=== PATIENT | male | born 1960 | race African-American/Black ===

== ENCOUNTER 2016-12-25 12:57 | Emergency (ER) | payer MEDICAID ==
[~2016-12-25] VITALS: Ht 167.6 cm; Wt 82.0 kg
[~2016-12-25 12:57] MED LIST: AMLO5TAB88 PO; ASCO500T20 PO; ATOR80TA PO; Aspirin PO; BACL-141 PO; CHOL400T28 PO; CITA20TA19 PO; CLOP75TA2 PO; FLEXERIL PO; HY1 PO; HYDR-519 PO; Isosorbide Mononitrate PO; KEPP500 PO; LATA2.5D2 OP; LISI10TA5 PO; MELO-58 PO; METO200T34 PO; Ranolazine PO; TIOT18CA3 INH; TRAZ-132 PO
[2016-12-25] MEDS ORDERED: ALBUTEROL (0.083%) 2.5MG/3ML NEB HHN STA (14:08)
[2016-12-25] MEDS ORDERED: PREDNISONE 20MG TABLET PO STA (14:08)
[2016-12-25] MEDS ORDERED: IPRATROPIUM BROMIDE (0.02%) 0.5MG/2.5ML NEB HHN STA (14:08)
[2016-12-25] MEDS ORDERED: MORPHINE SULFATE 4 MG/ML CPJ (NOT FOR IM USE) IV ONE (14:15)
[2016-12-25 14:48] LABS: *AMPHETAMINES SCREEN URINE NEGATIVE (NEGATIVE); *BARBITURATES SCREEN URINE NEGATIVE (NEGATIVE); *BENZODIAZEPINES SCREEN URINE NEGATIVE (NEGATIVE); *COCAINE SCREEN URINE NEGATIVE (NEGATIVE); CANNABINOID URINE SCREEN NEGATIVE (NEGATIVE); ECSTASY MDMA SCREEN URINE CONF.TEST INDICATED (NEGATIVE); METHADONE URINE SCREEN NEGATIVE (NEGATIVE); OPIATES URINE SCREEN PRESUMTIVE POSITIVE (NEGATIVE); PHENCYCLIDINE URINE SCREEN NEGATIVE (NEGATIVE)
[2016-12-25 15:26] LABS: BASOPHILS % 0.5 % (0.0-2.0); EOSINOPHILS % 0.1 % (0.0-5.0); HEMATOCRIT. 42.5 % (42.0-52.0); LYMPHOCYTES % 50.4 % (20.0-50.0); MEAN CORPUSCULAR HGB CONC 32.9 g/dL (31.0-37.0); MEAN CORPUSCULAR VOLUME 91.1 fL (80.0-94.0); MEAN PLATELET VOLUME 8.5 fl (7.4-10.4); MONOCYTES % 11.5 % (2.0-8.0); NEUTROPHILS % 37.5 % (40.0-76.0); PLATELET 171 x1000/uL (130-400); RED BLOOD CELL COUNT 4.67 mill/uL (4.7-6.1); RED CELL DISTRIBUTION WIDTH 15.4 % (11.6-14.6); WHITE BLOOD COUNT 2.8 x1000/uL (4.5-11.0)
[2016-12-25 15:28] LABS: CHLORIDE 105 mEq/L (98-107); INDEX HEMOLYSI 1 (1-3); INDEX ICTERIC 1 (1-4); INDEX LIPEMIC 1 (1-3)
[2016-12-25 15:30] LABS: INR 1.1; PARTIAL THROMBOPLASTIN TIME 29.6 sec (24.0-34.0); PROTHROMBIN TIME 11.4 sec
[2016-12-25 15:39] LABS: ALANINE AMINOTRANSFERASE 57 IU/L (13-61); ALBUMIN 3.8 g/dL (3.4-5.0); ANION GAP 12; CALCIUM 8.5 mg/dL (8.5-10.1); CARBON DIOXIDE 29 mEq/L (21-32); ETHANOL BLOOD < 10 mg/dL; NT PRO B-TYPE NATRIURETIC PEP 391 pg/mL (5-125); TROPONIN I < 0.02 ng/mL (0.00-0.04); UREA NITROGEN BLOOD 6 mg/dL (7-21); eGFR > 60 mL/min (>60)
[2016-12-25] MEDS ORDERED: ALBUTEROL (0.083%) 2.5MG/3ML NEB HHN ONE (16:15)
[2016-12-25] MEDS ORDERED: IBUPROFEN 800MG TABLET PO ONE (17:00)
[2016-12-25 17:10] VITALS: BP 176/99
== END 2016-12-25 17:18 | disposition home or self-care (01) ==
LOC: ER 12:57
DX: J40 Bronchitis, not specified as acute or chronic (principal); J44.9 Chronic obstructive pulmonary disease, unspecified; I25.10 Atherosclerotic heart disease of native coronary artery without angina pectoris; E78.00 Pure hypercholesterolemia, unspecified; F17.200 Nicotine dependence, unspecified, uncomplicated; I10 Essential (primary) hypertension; Z86.73 Personal history of transient ischemic attack (TIA), and cerebral infarction without residual deficits; Z95.5 Presence of coronary angioplasty implant and graft; Z79.82 Long term (current) use of aspirin; Z79.899 Other long term (current) drug therapy
CPT/HCPCS: 36415; 71010; 80053; 80305; 83605; 83880; 84484; 85025; 85610; 85730; 87040; 93005; 96374; 99285; 99406; G0482; J2270; J7512; J7611; Z7610

== ENCOUNTER 2017-01-31 13:55 | Observation (INO) | payer MEDICAID ==
[~2017-01-31] VITALS: Ht 170.2 cm; Wt 80.9 kg
[2017-01-31 16:40] LABS: BASOPHILS % 0.3 % (0.0-2.0); EOSINOPHILS % 0.2 % (0.0-5.0); HEMATOCRIT. 40.2 % (42.0-52.0); HEMOGLOBIN. 13.4 g/dL (14.0-18.0); LYMPHOCYTES % 41.8 % (20.0-50.0); MEAN CORPUSCULAR HEMOGLOBIN 29.3 pg (28.0-32.0); MEAN CORPUSCULAR HGB CONC 33.3 g/dL (31.0-37.0); MEAN PLATELET VOLUME 7.9 fl (7.4-10.4); MONOCYTES % 13.7 % (2.0-8.0); PLATELET 205 x1000/uL (130-400); RED BLOOD CELL COUNT 4.57 mill/uL (4.7-6.1); RED CELL DISTRIBUTION WIDTH 15.9 % (11.6-14.6); WHITE BLOOD COUNT 3.3 x1000/uL (4.5-11.0)
[2017-01-31 16:47] LABS: INR 1.1; PROTHROMBIN TIME 10.9 sec
[2017-01-31 16:59] LABS: ANION GAP 12; CALCIUM 8.5 mg/dL (8.5-10.1); CARBON DIOXIDE 27 mEq/L (21-32); CHLORIDE 106 mEq/L (98-107); INDEX HEMOLYSI 1 (1-3); INDEX ICTERIC 1 (1-4); INDEX LIPEMIC 1 (1-3); NT PRO B-TYPE NATRIURETIC PEP 549 pg/mL (5-125); UREA NITROGEN BLOOD 7 mg/dL (7-21)
[2017-01-31 17:00] LABS: eGFR > 60 mL/min (>60)
[2017-01-31] MEDS ORDERED: HYDROCODONE/ACETAMINOPHEN 5/325MG TABLET PO ONE (17:15)
[2017-01-31] MEDS ORDERED: ASPIRIN 81MG TABLET PO ONE (17:15)
[2017-01-31 17:16] LABS: *AMPHETAMINES SCREEN URINE NEGATIVE (NEGATIVE); *BARBITURATES SCREEN URINE NEGATIVE (NEGATIVE); *BENZODIAZEPINES SCREEN URINE NEGATIVE (NEGATIVE); *COCAINE SCREEN URINE NEGATIVE (NEGATIVE); CANNABINOID URINE SCREEN NEGATIVE (NEGATIVE); ECSTASY MDMA SCREEN URINE CONF.TEST INDICATED (NEGATIVE); METHADONE URINE SCREEN NEGATIVE (NEGATIVE); OPIATES URINE SCREEN NEGATIVE (NEGATIVE); PHENCYCLIDINE URINE SCREEN NEGATIVE (NEGATIVE)
[2017-01-31] MEDS ORDERED: LABETALOL HCL 20MG/4ML CARPUJECT IV PRN ×2 (18:00→20:45)
[2017-01-31] MEDS ORDERED: LABETALOL 5MG/ML SYR 20 MG/4 ML SYRINGE IV PRN ×2 (18:46→21:00)
[2017-01-31] MEDS ORDERED: KETOROLAC 30MG/ML VIAL IV ONE (20:30)
[2017-01-31] MEDS ORDERED: ASPI-1035 PO (22:40)
[2017-01-31] MEDS ORDERED: RANO500T3 PO (22:40)
[2017-01-31] MEDS ORDERED: ISOS60TA4 PO (22:40)
[2017-01-31] MEDS ORDERED: AMLO10TA80 PO (22:43)
[2017-01-31] MEDS ORDERED: GABA-290 PO (22:52)
[2017-01-31] MEDS ORDERED: LISI40TA4 PO (22:52)
[2017-01-31] MEDS ORDERED: DICL75TA5 PO (22:52)
[2017-01-31] MEDS ORDERED: PREG50CA PO (22:52)
[2017-01-31] MEDS ORDERED: TIOT18CA3 INH (22:52)
[2017-01-31] MEDS ORDERED: MIRT15TA6 PO (22:52)
[2017-01-31] MEDS ORDERED: PROT20 PO (22:52)
[2017-01-31 23:00] VITALS: BP 153/111
[2017-01-31] MEDS ORDERED: BRIN8DRO LEFTEYE (23:40)
[2017-01-31] MEDS ORDERED: DORZ10DR7 LEFTEYE (23:40)
[2017-02-01] VITALS: BP 163/95
[2017-02-01] MEDS ORDERED: POTASSIUM CHLORIDE 20MEQ TABLET SR PO ONE (00:30)
[2017-02-01] MEDS: HYDROCODONE/ACETAMINOPHEN 10/325MG TABLET PO PRN ×3 (00:33→15:19)
[2017-02-01] MEDS ORDERED: IPRATROPIUM/ALBUTEROL 0.5-3(2.5)MG/3ML NEB HHN PRN (01:30)
[2017-02-01 04:00] VITALS: BP 144/79
[2017-02-01 05:43] LABS: HEMATOCRIT. 39.1 % (42.0-52.0); MEAN CORPUSCULAR HEMOGLOBIN 29.5 pg (28.0-32.0); MEAN CORPUSCULAR HGB CONC 33.4 g/dL (31.0-37.0); MEAN CORPUSCULAR VOLUME 88.3 fL (80.0-94.0); MEAN PLATELET VOLUME 8.6 fl (7.4-10.4); PLATELET 209 x1000/uL (130-400); RED BLOOD CELL COUNT 4.43 mill/uL (4.7-6.1); RED CELL DISTRIBUTION WIDTH 15.9 % (11.6-14.6); WHITE BLOOD COUNT 2.9 x1000/uL (4.5-11.0)
[2017-02-01 06:42] LABS: DIFFERENTIAL COMMENT 1
[2017-02-01] MEDS ORDERED: PANTOPRAZOLE 40MG DR TABLET PO SCH (06:45)
[2017-02-01 06:51] LABS: CHLORIDE 106 mEq/L (98-107); INDEX HEMOLYSI 1 (1-3); INDEX ICTERIC 1 (1-4); INDEX LIPEMIC 1 (1-3)
[2017-02-01 07:04] LABS: ALANINE AMINOTRANSFERASE 54 IU/L (13-61); ALBUMIN 3.2 g/dL (3.4-5.0); ANION GAP 13; CALCIUM 8.2 mg/dL (8.5-10.1); CARBON DIOXIDE 26 mEq/L (21-32); CREATINE KINASE 82 IU/L (39-308); CREATINE KINASE MB FRACTION 0.8 ng/mL (0.5-3.6); HDL CHOLESTEROL 59 mg/dL (40-59); LDL CHOLESTEROL 74 mg/dL (5-100); TRIGLYCERIDE 151 mg/dL (0-150); TROPONIN I 0.06 ng/mL (0.00-0.04); UREA NITROGEN BLOOD 8 mg/dL (7-21); eGFR > 60 mL/min (>60)
[2017-02-01 08:00] VITALS: BP 157/94
[2017-02-01] MEDS: IPRATROPIUM/ALBUTEROL 0.5-3(2.5)MG/3ML NEB HHN SCH ×2 (08:15→13:01)
[2017-02-01] MEDS ORDERED: CITALOPRAM HYDROBROMIDE 20MG TABLET PO SCH (09:00)
[2017-02-01] MEDS ORDERED: LISINOPRIL 40MG TABLET PO SCH (09:00)
[2017-02-01] MEDS ORDERED: RANOLAZINE 500 MG TAB.SR.12H PO SCH (09:00)
[2017-02-01] MEDS ORDERED: ISOSORBIDE MONONITRATE 30MG TABLET SR 24HR PO SCH (09:00)
[2017-02-01] MEDS ORDERED: CHOLECALCIFEROL (VIT D3) 400 UNIT TABLET PO SCH (09:00)
[2017-02-01] MEDS ORDERED: ASPIRIN 81MG EC TABLET PO SCH (09:00)
[2017-02-01] MEDS ORDERED: ASCORBIC ACID 500 MG TABLET PO SCH (09:00)
[2017-02-01] MEDS ORDERED: AMLODIPINE 10MG TABLET PO SCH (09:00)
[2017-02-01] MEDS ORDERED: ENOXAPARIN 40MG/0.4ML SYR SUBCUT SCH (09:00)
[2017-02-01] MEDS ORDERED: CLOPIDOGREL 75MG TABLET PO SCH (09:00)
[2017-02-01] MEDS: BACLOFEN 10MG TABLET PO SCH ×3 (09:37→17:48)
[2017-02-01] MEDS: GABAPENTIN 300MG CAPSULE PO SCH ×3 (09:44→17:47)
[2017-02-01 12:00] VITALS: BP 123/78
[2017-02-01 12:23] LABS: ANISOCYTOSIS 1+; PLATELET ESTIMATE NORMAL
[2017-02-01] MEDS ORDERED: NITROGLYCERIN OINT 1GM/INCH UDPKT TD SCH (14:00)
[2017-02-01 15:13] LABS: CREATINE KINASE MB FRACTION 0.6 ng/mL (0.5-3.6); TROPONIN I 0.06 ng/mL (0.00-0.04)
[2017-02-01 16:00] VITALS: BP 120/78
[2017-02-01] MEDS ORDERED: MIRTAZAPINE 15MG TABLET PO SCH (17:00)
[2017-02-01] MEDS ORDERED: POTASSIUM CHLORIDE 20MEQ TABLET SR PO NR (17:00)
[2017-02-01 17:55] VITALS: BP 122/78
[2017-02-01] MEDS ORDERED: TERAZOSIN HCL 1MG CAPSULE PO SCH (21:00)
[2017-02-01] MEDS ORDERED: LATANOPROST 0.005% OPHTH DROPS 2.5ML LEFTEYE SCH (21:00)
[2017-02-01] MEDS ORDERED: ATORVASTATIN CALCIUM 40MG TABLET PO SCH (21:00)
== END 2017-02-01 18:36 | disposition home or self-care (01) ==
LOC: ER 14:13 → 5WST 19:03 → INTOOBSV 19:03
PROVIDERS: ADMIT Internal Medicine; ATTEND Internal Medicine
DX: I24.9 Acute ischemic heart disease, unspecified (principal); I25.10 Atherosclerotic heart disease of native coronary artery without angina pectoris; I11.9 Hypertensive heart disease without heart failure; F32.9 Major depressive disorder, single episode, unspecified; J44.9 Chronic obstructive pulmonary disease, unspecified; M54.9 Dorsalgia, unspecified; G89.29 Other chronic pain; I25.2 Old myocardial infarction; E78.00 Pure hypercholesterolemia, unspecified; F17.210 Nicotine dependence, cigarettes, uncomplicated; Z86.19 Personal history of other infectious and parasitic diseases; Z86.73 Personal history of transient ischemic attack (TIA), and cerebral infarction without residual deficits
CPT/HCPCS: 36415; 70450; 71010; 80048; 80053; 80061; 80305; 82550; 82553; 83880; 84484; 85025; 85610; 93005; 93306; 94640; 96372; 96374; 96375; 96376; 99285; G0378; J1650; J1885; J3490; J7620

== ENCOUNTER 2017-04-16 07:24 | Emergency (ER) | payer MEDICAID, MEDICARE ==
[~2017-04-16] VITALS: Ht 170.2 cm; Wt 82.0 kg
[~2017-04-16 07:24] MED LIST changes: +ASPI-1159 PO; -Aspirin PO; +BRIN8DRO LEFTEYE; +CLOP75TA15 PO; -CLOP75TA2 PO; +DICL75TA5 PO; +DORZ10DR7 LEFTEYE; +GABA-290 PO; +ISOS60TA4 PO; -Isosorbide Mononitrate PO; -LISI10TA5 PO; +LISI40TA4 PO; +MIRT15TA6 PO; +PREG50CA PO; +PROT20 PO; +RANO500T3 PO; -Ranolazine PO
[2017-04-16] MEDS ORDERED: ONDANSETRON HCL 4MG/2ML VIAL IV ONE (08:15)
[2017-04-16] MEDS ORDERED: FAMOTIDINE 20MG/2ML VIAL IV ONE (08:15)
[2017-04-16] MEDS ORDERED: MORPHINE SULFATE 4 MG/ML CPJ (NOT FOR IM USE) IV ONE (08:15)
[2017-04-16 08:40] LABS: BASOPHILS % 0.3 % (0.0-2.0); EOSINOPHILS % 0.6 % (0.0-5.0); HEMATOCRIT. 41.7 % (42.0-52.0); LYMPHOCYTES % 27.4 % (20.0-50.0); MEAN CORPUSCULAR HEMOGLOBIN 30.1 pg (28.0-32.0); MEAN CORPUSCULAR VOLUME 89.4 fL (80.0-94.0); MEAN PLATELET VOLUME 8.1 fl (7.4-10.4); MONOCYTES % 13.2 % (2.0-8.0); NEUTROPHILS % 58.5 % (40.0-76.0); PLATELET 174 x1000/uL (130-400); RED BLOOD CELL COUNT 4.66 mill/uL (4.7-6.1); RED CELL DISTRIBUTION WIDTH 16.9 % (11.6-14.6)
[2017-04-16 08:47] LABS: INR 1.1; PROTHROMBIN TIME 10.9 sec
[2017-04-16 08:58] LABS: *AMPHETAMINES SCREEN URINE NEGATIVE (NEGATIVE); *BARBITURATES SCREEN URINE NEGATIVE (NEGATIVE); *BENZODIAZEPINES SCREEN URINE NEGATIVE (NEGATIVE); *COCAINE SCREEN URINE NEGATIVE (NEGATIVE); CANNABINOID URINE SCREEN NEGATIVE (NEGATIVE); METHADONE URINE SCREEN NEGATIVE (NEGATIVE); OPIATES URINE SCREEN NEGATIVE (NEGATIVE); PHENCYCLIDINE URINE SCREEN NEGATIVE (NEGATIVE)
[2017-04-16 08:59] LABS: CARBON DIOXIDE 29 mEq/L (21-32); CHLORIDE 104 mEq/L (98-107); ETHANOL BLOOD < 10 mg/dL; TROPONIN I < 0.02 ng/mL (0.00-0.04)
[2017-04-16 10:19] VITALS: BP 142/96
[2017-04-16] MEDS ORDERED: SODIUM CHLORIDE 0.9% 10ML VIAL ONE (14:07)
[2017-04-16] MEDS ORDERED: IOHEXOL-300 100 ML BOTTLE ONE (14:07)
== END 2017-04-16 10:34 | disposition home or self-care (01) ==
LOC: ER 07:24
DX: R10.13 Epigastric pain (principal); R20.0 Anesthesia of skin; R11.0 Nausea; F17.200 Nicotine dependence, unspecified, uncomplicated; I10 Essential (primary) hypertension; Z86.73 Personal history of transient ischemic attack (TIA), and cerebral infarction without residual deficits; Z79.82 Long term (current) use of aspirin
CPT/HCPCS: 36415; 70450; 74177; 80053; 80305; 83690; 83880; 84484; 85025; 85610; 93005; 96374; 96375; 99285; A4216; G0482; J2270; J2405; J3490; Q9967; Z7610

== ENCOUNTER 2017-04-19 07:18 | Emergency (ER) | payer MEDICARE ==
[~2017-04-19] VITALS: Ht 167.6 cm; Wt 82.0 kg
[2017-04-19] MEDS ORDERED: SODIUM CHLORIDE 0.9% 500 ML IV ONE (08:38)
[2017-04-19] MEDS ORDERED: FAMOTIDINE 20MG/2ML VIAL IV STA (08:38)
[2017-04-19] MEDS ORDERED: MAGNESIUM/ALUMINUM HYDROXIDE/SIMETHICONE 30ML UDC PO STA (08:38)
[2017-04-19 09:12] LABS: HEMOGLOBIN. 13.2 g/dL (14.0-18.0); MEAN CORPUSCULAR HEMOGLOBIN 30.3 pg (28.0-32.0); MEAN CORPUSCULAR VOLUME 89.7 fL (80.0-94.0); MEAN PLATELET VOLUME 8.1 fl (7.4-10.4); PLATELET 168 x1000/uL (130-400); RED BLOOD CELL COUNT 4.35 mill/uL (4.7-6.1); RED CELL DISTRIBUTION WIDTH 16.7 % (11.6-14.6)
[2017-04-19 09:23] LABS: CARBON DIOXIDE 29 mEq/L (21-32); CHLORIDE 107 mEq/L (98-107); PARTIAL THROMBOPLASTIN TIME 28.8 sec (24.0-34.0); PROTHROMBIN TIME 10.5 sec
[2017-04-19 09:30] LABS: TROPONIN I < 0.02 ng/mL (0.00-0.04)
[2017-04-19] MEDS ORDERED: MORPHINE SULFATE 4 MG/ML CPJ (NOT FOR IM USE) IV ONE (10:00)
[2017-04-19] MEDS ORDERED: ONDANSETRON HCL 4MG/2ML VIAL IV ONE (10:00)
[2017-04-19] MEDS ORDERED: POTASSIUM CHLORIDE 20MEQ TABLET SR PO ONE (11:00)
[2017-04-19 11:35] LABS: PLATELET ESTIMATE NORMAL
[2017-04-19 14:41] VITALS: BP 157/98
== END 2017-04-19 14:54 | disposition short-term general hospital (02) ==
LOC: ER 08:14 → EDBEDREQ 09:41 → CANRESERV 13:49 → ENRESERV 13:49 → ER 14:54 → CANBEDREQ 17:01
DX: R10.9 Unspecified abdominal pain (principal); C95.90 Leukemia, unspecified not having achieved remission; E87.8 Other disorders of electrolyte and fluid balance, not elsewhere classified; I10 Essential (primary) hypertension; D64.9 Anemia, unspecified; F17.210 Nicotine dependence, cigarettes, uncomplicated; Z79.82 Long term (current) use of aspirin; Z86.73 Personal history of transient ischemic attack (TIA), and cerebral infarction without residual deficits
CPT/HCPCS: 36415; 71010; 80053; 83690; 84484; 85025; 85610; 85730; 93005; 96361; 96374; 96375; 99285; J2270; J2405; J3490; J7030; J7040; Z7610

== ENCOUNTER 2017-04-28 11:58 | Inpatient (IN) | payer MEDICARE ==
[~2017-04-28] VITALS: Ht 170.2 cm; Wt 83.0 kg
[2017-04-28 13:18] LABS: BASOPHILS % 0.4 % (0.0-2.0); EOSINOPHILS % 0.3 % (0.0-5.0); HEMATOCRIT. 40.9 % (42.0-52.0); HEMOGLOBIN. 13.9 g/dL (14.0-18.0); LYMPHOCYTES % 41.1 % (20.0-50.0); MEAN CORPUSCULAR HEMOGLOBIN 30.4 pg (28.0-32.0); MEAN CORPUSCULAR VOLUME 89.6 fL (80.0-94.0); MEAN PLATELET VOLUME 7.9 fl (7.4-10.4); MONOCYTES % 14.8 % (2.0-8.0); NEUTROPHILS % 43.4 % (40.0-76.0); PLATELET 188 x1000/uL (130-400); RED BLOOD CELL COUNT 4.56 mill/uL (4.7-6.1)
[2017-04-28 13:26] LABS: PROTHROMBIN TIME 10.6 sec
[2017-04-28 13:32] LABS: CARBON DIOXIDE 28 mEq/L (21-32); CHLORIDE 107 mEq/L (98-107)
[2017-04-28 13:34] LABS: TROPONIN I < 0.02 ng/mL (0.00-0.04)
[2017-04-28] MEDS ORDERED: METOCLOPRAMIDE HCL 10MG/2ML VIAL IV ONE (13:45)
[2017-04-28] MEDS ORDERED: KETOROLAC 30MG/ML VIAL IV ONE (13:45)
[2017-04-28 16:00] VITALS: BP 147/98
[2017-04-28 18:49] VITALS: BP 147/98
[2017-04-28 20:00] VITALS: BP 144/91
== END 2017-04-28 23:20 | disposition short-term general hospital (02) | DRG 140 ==
LOC: ER 13:06 → 5WST 14:12 → EDBEDREQ 16:55 → ENRESERV 17:27
PROVIDERS: ADMIT Internal Medicine; ATTEND Internal Medicine
DX: J44.1 Chronic obstructive pulmonary disease with (acute) exacerbation (principal); G90.8 Other disorders of autonomic nervous system; I10 Essential (primary) hypertension; F17.210 Nicotine dependence, cigarettes, uncomplicated; E78.00 Pure hypercholesterolemia, unspecified; I25.10 Atherosclerotic heart disease of native coronary artery without angina pectoris; Z79.82 Long term (current) use of aspirin; Z79.899 Other long term (current) drug therapy; Z95.5 Presence of coronary angioplasty implant and graft; Z79.02 Long term (current) use of antithrombotics/antiplatelets; Z82.49 Family history of ischemic heart disease and other diseases of the circulatory system
CPT/HCPCS: 36415; 70450; 71010; 80053; 83880; 84484; 85025; 85610; 93005; 96374; 96375; 99285; J1885; J2765

== ENCOUNTER 2017-05-08 09:33 | Observation (INO) | payer MEDICARE ==
[~2017-05-08] VITALS: Ht 170.2 cm; Wt 80.7 kg
[2017-05-08] MEDS ORDERED: KETOROLAC 30MG/ML VIAL IV STA (10:15)
[2017-05-08 10:53] LABS: BASOPHILS % 0.5 % (0.0-2.0); EOSINOPHILS % 0.5 % (0.0-5.0); HEMATOCRIT. 43.1 % (42.0-52.0); HEMOGLOBIN. 14.6 g/dL (14.0-18.0); MEAN CORPUSCULAR HEMOGLOBIN 30.2 pg (28.0-32.0); MEAN CORPUSCULAR VOLUME 89.2 fL (80.0-94.0); MEAN PLATELET VOLUME 8.7 fl (7.4-10.4); MONOCYTES % 8.3 % (2.0-8.0); NEUTROPHILS % 48.7 % (40.0-76.0); PLATELET 174 x1000/uL (130-400); RED BLOOD CELL COUNT 4.84 mill/uL (4.7-6.1); RED CELL DISTRIBUTION WIDTH 16.4 % (11.6-14.6)
[2017-05-08 11:04] LABS: CARBON DIOXIDE 27 mEq/L (21-32); CHLORIDE 102 mEq/L (98-107)
[2017-05-08 11:14] LABS: INR 1.1; PROTHROMBIN TIME 11.2 sec
[2017-05-08 11:38] LABS: CLARITY URINE CLEAR (CLEAR); COLOR URINE YELLOW (YELLOW); GLUCOSE URINE TRACE (NEGATIVE); KETONES URINE NEGATIVE (NEGATIVE); LEUKOCYTE ESTERASE URINE NEGATIVE (NEGATIVE); NITRITE URINE NEGATIVE (NEGATIVE); OCCULT BLOOD URINE NEGATIVE (NEGATIVE); PH URINE 6.5 (4.5-8.0); PROTEIN URINE NEGATIVE (NEGATIVE); SPECIFIC GRAVITY URINE 1.008 (1.005-1.030); UROBILINOGEN URINE 0.2 E.U./dL (0.2-1.0)
[2017-05-08 12:06] LABS: *AMPHETAMINES SCREEN URINE NEGATIVE (NEGATIVE); *BARBITURATES SCREEN URINE NEGATIVE (NEGATIVE); *BENZODIAZEPINES SCREEN URINE NEGATIVE (NEGATIVE); *COCAINE SCREEN URINE NEGATIVE (NEGATIVE); CANNABINOID URINE SCREEN NEGATIVE (NEGATIVE); METHADONE URINE SCREEN NEGATIVE (NEGATIVE); OPIATES URINE SCREEN NEGATIVE (NEGATIVE); PHENCYCLIDINE URINE SCREEN NEGATIVE (NEGATIVE)
[2017-05-08] MEDS ORDERED: ONDANSETRON HCL 4MG/2ML VIAL IV PRN (14:00)
[2017-05-08] MEDS ORDERED: DIPHENHYDRAMINE 50MG/ML VIAL IV PRN (14:00)
[2017-05-08] MEDS ORDERED: ACETAMINOPHEN 325MG TABLET PO PRN (14:00)
[2017-05-08] MEDS ORDERED: POTASSIUM CHLORIDE 20MEQ TABLET SR PO ONE (14:30)
[2017-05-08] MEDS ORDERED: ASPIRIN 81MG TABLET PO ONE (15:45)
[2017-05-08] MEDS: AMLODIPINE 10MG TABLET PO SCH (16:36)
[2017-05-08 18:00] VITALS: BP 149/91
[2017-05-08] MEDS: HYDROCODONE/ACETAMINOPHEN 5/325MG TABLET PO PRN (18:46)
[2017-05-08 20:00] VITALS: BP 132/96
[2017-05-08] MEDS ORDERED: ZOLPIDEM TARTRATE 5MG TABLET PO PRN (22:45)
[2017-05-09] VITALS: BP 151/87
[2017-05-09] MEDS: HYDROCODONE/ACETAMINOPHEN 5/325MG TABLET PO PRN (03:07)
[2017-05-09] MEDS ORDERED: RANOLAZINE 500 MG TAB.SR.12H PO SCH (03:45)
[2017-05-09 04:00] VITALS: BP 118/75
[2017-05-09 04:36] VITALS: BP 118/75
[2017-05-09 06:54] LABS: BASOPHILS % 0.4 % (0.0-2.0); HEMATOCRIT. 41.1 % (42.0-52.0); LYMPHOCYTES % 48.4 % (20.0-50.0); MEAN CORPUSCULAR HEMOGLOBIN 30.5 pg (28.0-32.0); MEAN CORPUSCULAR VOLUME 89.3 fL (80.0-94.0); MEAN PLATELET VOLUME 8.3 fl (7.4-10.4); MONOCYTES % 14.1 % (2.0-8.0); NEUTROPHILS % 36.1 % (40.0-76.0); PLATELET 172 x1000/uL (130-400); RED CELL DISTRIBUTION WIDTH 16.4 % (11.6-14.6)
[2017-05-09 07:31] LABS: CHLORIDE 107 mEq/L (98-107)
[2017-05-09 07:45] LABS: CARBON DIOXIDE 26 mEq/L (21-32); HDL CHOLESTEROL 46 mg/dL (40-59); LDL CHOLESTEROL 65 mg/dL (5-100)
[2017-05-09 08:00] VITALS: BP 136/83
[2017-05-09] MEDS: AMLODIPINE 10MG TABLET PO SCH (08:39)
[2017-05-09] MEDS ORDERED: LISINOPRIL 40MG TABLET PO SCH (09:00)
[2017-05-09] MEDS ORDERED: ASCORBIC ACID 500 MG TABLET PO SCH (09:00)
[2017-05-09] MEDS ORDERED: CLOPIDOGREL 75MG TABLET PO SCH (09:00)
[2017-05-09] MEDS ORDERED: LEVETIRACETAM 500MG TABLET PO SCH (09:00)
[2017-05-09] MEDS ORDERED: AMLODIPINE 5MG TABLET PO SCH (09:00)
[2017-05-09] MEDS ORDERED: ASPIRIN 81MG EC TABLET PO SCH ×2 (09:00)
[2017-05-09] MEDS ORDERED: DORZOLAMIDE 2% OPHTH 10 ML BOTTLE LEFTEYE SCH (09:00)
[2017-05-09] MEDS ORDERED: ISOSORBIDE MONONITRATE 60MG TABLET SR 24HR PO SCH (09:00)
[2017-05-09] MEDS ORDERED: CHOLECALCIFEROL (VIT D3) 400 UNIT TABLET PO SCH (09:00)
[2017-05-09] MEDS ORDERED: CITALOPRAM HYDROBROMIDE 20MG TABLET PO SCH (09:00)
[2017-05-09] MEDS ORDERED: MEDICATION NOT ON FORMULARY EA (Brinzolamide/Brimonid Tart (Simbrinza 1%-0.2% Eye Drops) LEFTEYE SCH (09:00)
[2017-05-09] MEDS ORDERED: TRAZODONE HCL 100MG TABLET PO SCH (21:00)
[2017-05-09] MEDS ORDERED: ATORVASTATIN CALCIUM 40MG TABLET PO SCH (21:00)
[2017-05-09] MEDS ORDERED: TERAZOSIN HCL 1MG CAPSULE PO SCH (21:00)
[2017-05-09] MEDS ORDERED: LATANOPROST 0.005% OPHTH DROPS 2.5ML LEFTEYE SCH (21:00)
== END 2017-05-09 09:20 | disposition short-term general hospital (02) ==
LOC: ER 10:51 → INTOOBSV 14:22 → 8WST 14:22 → EDBEDREQ 14:24 → ENRESERV 14:30 → CANBEDREQ 16:54
PROVIDERS: ADMIT Internal Medicine; ATTEND Internal Medicine
DX: R47.81 Slurred speech (principal); R13.10 Dysphagia, unspecified; I10 Essential (primary) hypertension; I25.10 Atherosclerotic heart disease of native coronary artery without angina pectoris; E78.5 Hyperlipidemia, unspecified; E78.00 Pure hypercholesterolemia, unspecified; F17.200 Nicotine dependence, unspecified, uncomplicated; E87.6 Hypokalemia; Z95.5 Presence of coronary angioplasty implant and graft; Z86.73 Personal history of transient ischemic attack (TIA), and cerebral infarction without residual deficits
CPT/HCPCS: 36415; 70450; 71010; 80053; 80061; 80305; 81001; 85025; 85610; 93005; 96374; 99285; G0378; J1885

== ENCOUNTER 2017-05-17 06:59 | Emergency (ER) | payer MEDICARE ==
[~2017-05-17] VITALS: Ht 170.2 cm; Wt 82.0 kg
[~2017-05-17 06:59] MED LIST changes: -BACL-141 PO; -DICL75TA5 PO; -FLEXERIL PO; -GABA-290 PO; -HYDR-519 PO; -MELO-58 PO; -METO200T34 PO; -MIRT15TA6 PO; -PREG50CA PO; -PROT20 PO; -TIOT18CA3 INH
[2017-05-17] MEDS ORDERED: OXYCODONE HCL/ACETAMINOPHEN 5/325MG TABLET PO ONE ×2 (07:30→10:45)
[2017-05-17 07:57] LABS: HEMATOCRIT. 42.1 % (42.0-52.0); HEMOGLOBIN. 14.1 g/dL (14.0-18.0); MEAN CORPUSCULAR HEMOGLOBIN 29.9 pg (28.0-32.0); MEAN CORPUSCULAR VOLUME 89.3 fL (80.0-94.0); MEAN PLATELET VOLUME 8.8 fl (7.4-10.4); PLATELET 177 x1000/uL (130-400); RED BLOOD CELL COUNT 4.71 mill/uL (4.7-6.1); RED CELL DISTRIBUTION WIDTH 16.7 % (11.6-14.6)
[2017-05-17 08:10] LABS: INR 1.1; PROTHROMBIN TIME 11.1 sec
[2017-05-17 08:11] LABS: CHLORIDE 107 mEq/L (98-107)
[2017-05-17 08:18] LABS: CARBON DIOXIDE 28 mEq/L (21-32)
[2017-05-17 08:29] LABS: NUCLEATED RED BLOOD CELLS 1 /100 WBC; PLATELET ESTIMATE NORMAL
[2017-05-17 11:13] VITALS: BP 151/101
[2017-05-17] MEDS ORDERED: SODIUM CHLORIDE 0.9% 10ML VIAL ONE (14:02)
[2017-05-17] MEDS ORDERED: IOHEXOL-350 100 ML BOTTLE ONE (14:02)
== END 2017-05-17 12:09 | disposition home or self-care (01) ==
LOC: ER 07:31
DX: M54.2 Cervicalgia (principal); R20.0 Anesthesia of skin; I10 Essential (primary) hypertension; E78.00 Pure hypercholesterolemia, unspecified; F17.210 Nicotine dependence, cigarettes, uncomplicated; Z86.73 Personal history of transient ischemic attack (TIA), and cerebral infarction without residual deficits; Z79.82 Long term (current) use of aspirin; Z95.5 Presence of coronary angioplasty implant and graft
CPT/HCPCS: 36415; 70498; 80053; 85025; 85610; 99285; A4216; Q9967; Z7610

== ENCOUNTER 2017-05-27 08:25 | Emergency (ER) | payer MEDICARE ==
[~2017-05-27] VITALS: Ht 170.2 cm; Wt 82.8 kg
[2017-05-27] MEDS ORDERED: HYDROCODONE/ACETAMINOPHEN 5/325MG TABLET PO ONE (09:00)
[2017-05-27 09:27] VITALS: BP 160/100
== END 2017-05-27 09:29 | disposition home or self-care (01) ==
LOC: ER 08:53
DX: M54.12 Radiculopathy, cervical region (principal); I10 Essential (primary) hypertension; F17.200 Nicotine dependence, unspecified, uncomplicated; E78.00 Pure hypercholesterolemia, unspecified; Z86.73 Personal history of transient ischemic attack (TIA), and cerebral infarction without residual deficits; Z79.82 Long term (current) use of aspirin; Z79.01 Long term (current) use of anticoagulants
CPT/HCPCS: 99283

== ENCOUNTER 2017-06-14 08:18 | Inpatient (IN) | payer MEDICAID, MEDICARE ==
[~2017-06-14] VITALS: Ht 170.2 cm; Wt 76.3 kg
[2017-06-14] MEDS ORDERED: ASPIRIN 81MG TABLET PO ONE (11:30)
[2017-06-14] MEDS ORDERED: NITROGLYCERIN 0.4MG TABLET SL SL PRN (11:30)
[2017-06-14 11:52] LABS: BASOPHILS % 0.5 % (0.0-2.0); HEMATOCRIT. 43.5 % (42.0-52.0); HEMOGLOBIN. 14.5 g/dL (14.0-18.0); LYMPHOCYTES % 47.5 % (20.0-50.0); MEAN CORPUSCULAR HEMOGLOBIN 29.9 pg (28.0-32.0); MEAN CORPUSCULAR VOLUME 89.5 fL (80.0-94.0); MEAN PLATELET VOLUME 8.3 fl (7.4-10.4); MONOCYTES % 14.1 % (2.0-8.0); NEUTROPHILS % 36.9 % (40.0-76.0); PLATELET 204 x1000/uL (130-400); RED BLOOD CELL COUNT 4.86 mill/uL (4.7-6.1); RED CELL DISTRIBUTION WIDTH 16.2 % (11.6-14.6)
[2017-06-14] MEDS ORDERED: HYDROCODONE/ACETAMINOPHEN 5/325MG TABLET PO ONE (12:00)
[2017-06-14 12:02] LABS: D-DIMER 1.23 mg/L FEU (<0.50); INR 1.1; PROTHROMBIN TIME 10.9 sec (9.4-11.6)
[2017-06-14 12:05] LABS: CARBON DIOXIDE 29 mEq/L (21-32); CHLORIDE 107 mEq/L (98-107)
[2017-06-14 12:07] LABS: TROPONIN I < 0.02 ng/mL (0.00-0.04)
[2017-06-14] MEDS ORDERED: IOHEXOL-350 100 ML BOTTLE ONE (13:54)
[2017-06-14] MEDS ORDERED: SODIUM CHLORIDE 0.9% 10ML VIAL ONE (13:54)
[2017-06-14 15:30] LABS: *AMPHETAMINES SCREEN URINE NEGATIVE (NEGATIVE); *BARBITURATES SCREEN URINE NEGATIVE (NEGATIVE); *BENZODIAZEPINES SCREEN URINE NEGATIVE (NEGATIVE); *COCAINE SCREEN URINE NEGATIVE (NEGATIVE); CANNABINOID URINE SCREEN NEGATIVE (NEGATIVE); METHADONE URINE SCREEN NEGATIVE (NEGATIVE); OPIATES URINE SCREEN NEGATIVE (NEGATIVE); PHENCYCLIDINE URINE SCREEN NEGATIVE (NEGATIVE)
[2017-06-14 16:02] VITALS: BP 180/104
[2017-06-14 16:05] VITALS: BP 180/104
[2017-06-14 18:00] VITALS: BP 176/107
[2017-06-14] MEDS ORDERED: ISOSORBIDE MONONITRATE 60MG TABLET SR 24HR PO SCH ×3 (18:00→20:00)
[2017-06-14] MEDS: LISINOPRIL 40MG TABLET PO SCH (18:15)
[2017-06-14] MEDS: LEVETIRACETAM 500MG TABLET PO SCH (18:16)
[2017-06-14] MEDS: AMLODIPINE 5MG TABLET PO SCH (18:16)
[2017-06-14] MEDS: MORPHINE SULFATE 4 MG/ML CPJ (NOT FOR IM USE) IV PRN ×2 (18:23→22:42)
[2017-06-14 20:00] VITALS: BP 149/95
[2017-06-14] MEDS: RANOLAZINE 500 MG TAB.SR.12H PO SCH (20:54)
[2017-06-14] MEDS ORDERED: MEDICATION NOT ON FORMULARY EA (Brinzolamide/Brimonid Tart (Simbrinza 1%-0.2% Eye Drops) LEFTEYE SCH (21:00)
[2017-06-14] MEDS ORDERED: ATORVASTATIN CALCIUM 40MG TABLET PO SCH (21:00)
[2017-06-14] MEDS ORDERED: TRAZODONE HCL 100MG TABLET PO SCH (21:00)
[2017-06-14] MEDS ORDERED: MEDICATION NOT ON FORMULARY EA (Atorvastatin Calcium (Lipitor) 80 MG) PO SCH (21:00)
[2017-06-14] MEDS ORDERED: TERAZOSIN HCL 1MG CAPSULE PO SCH (21:00)
[2017-06-14] MEDS ORDERED: LATANOPROST 0.005% OPHTH DROPS 2.5ML LEFTEYE SCH (21:00)
[2017-06-14] MEDS: METOPROLOL TARTRATE 25MG TABLET PO SCH (21:49)
[2017-06-14 22:00] VITALS: BP 128/84
[2017-06-14] MEDS: CHOLECALCIFEROL (VIT D3) 400 UNIT TABLET PO SCH (22:01)
[2017-06-15] VITALS (9 sets, daily range): BP systolic 93–143; BP diastolic 61–102
[2017-06-15] MEDS: MORPHINE SULFATE 4 MG/ML CPJ (NOT FOR IM USE) IV PRN ×2 (03:30→10:11)
[2017-06-15 06:32] LABS: CARBON DIOXIDE 31 mEq/L (21-32); CHLORIDE 104 mEq/L (98-107); HDL CHOLESTEROL 49 mg/dL (40-59); LDL CHOLESTEROL 31 mg/dL (5-100); TROPONIN I < 0.02 ng/mL (0.00-0.04)
[2017-06-15] MEDS: LEVETIRACETAM 500MG TABLET PO SCH (08:19)
[2017-06-15] MEDS: AMLODIPINE 5MG TABLET PO SCH (08:19)
[2017-06-15] MEDS: CHOLECALCIFEROL (VIT D3) 400 UNIT TABLET PO SCH (08:19)
[2017-06-15] MEDS: RANOLAZINE 500 MG TAB.SR.12H PO SCH (08:19)
[2017-06-15] MEDS: METOPROLOL TARTRATE 25MG TABLET PO SCH (08:20)
[2017-06-15] MEDS: LISINOPRIL 40MG TABLET PO SCH (08:20)
[2017-06-15] MEDS: BRIMONIDINE 0.2% OPHTH DROPS 5ML LEFTEYE SCH ×2 (08:21→12:11)
[2017-06-15] MEDS: DORZOLAMIDE 2% OPHTH 10 ML BOTTLE LEFTEYE SCH ×2 (08:41→12:11)
[2017-06-15] MEDS ORDERED: CITALOPRAM HYDROBROMIDE 20MG TABLET PO SCH (09:00)
[2017-06-15] MEDS ORDERED: CLOPIDOGREL 75MG TABLET PO SCH (09:00)
[2017-06-15] MEDS ORDERED: ASCORBIC ACID 500 MG TABLET PO SCH (09:00)
[2017-06-15] MEDS ORDERED: ASPIRIN 81MG EC TABLET PO SCH (09:00)
[2017-06-15] MEDS ORDERED: RIVAROXABAN 20 MG TABLET PO SCH (17:20)
[2017-07-26] MEDS ORDERED: LORA10TA7 PO (23:29)
[2017-07-26] MEDS ORDERED: THIA100T75 PO (23:29)
== END 2017-06-15 14:45 | disposition home or self-care (01) | DRG 203 ==
LOC: ER 09:53 → EDBEDREQ 13:15 → ENRESERV 15:06 → 3WST 15:16
PROVIDERS: ADMIT Internal Medicine; ATTEND Internal Medicine
DX: M94.0 Chondrocostal junction syndrome [Tietze] (principal); I10 Essential (primary) hypertension; E78.5 Hyperlipidemia, unspecified; J44.9 Chronic obstructive pulmonary disease, unspecified; F17.210 Nicotine dependence, cigarettes, uncomplicated; Z97.0 Presence of artificial eye; Z98.61 Coronary angioplasty status; Z86.73 Personal history of transient ischemic attack (TIA), and cerebral infarction without residual deficits; Z79.82 Long term (current) use of aspirin; Z90.49 Acquired absence of other specified parts of digestive tract; Z86.711 Personal history of pulmonary embolism; Z79.01 Long term (current) use of anticoagulants; I25.111 Atherosclerotic heart disease of native coronary artery with angina pectoris with documented spasm
CPT/HCPCS: 36415; 71010; 71275; 72170; 80053; 80061; 80305; 84443; 84484; 85025; 85379; 85610; 93005; 99285; A4216; J2270; J7040; Q9967

== ENCOUNTER 2017-06-18 13:58 | Inpatient (IN) | payer MEDICAID ==
[~2017-06-18] VITALS: Ht 170.2 cm; Wt 81.6 kg
[2017-06-18] MEDS ORDERED: MORPHINE SULFATE 2 MG/ML CPJ (NOT FOR IM USE) IV ONE (20:30)
[2017-06-18 20:35] LABS: CLARITY URINE CLEAR (CLEAR); COLOR URINE YELLOW (YELLOW); GLUCOSE URINE NEGATIVE (NEGATIVE); KETONES URINE NEGATIVE (NEGATIVE); LEUKOCYTE ESTERASE URINE NEGATIVE (NEGATIVE); NITRITE URINE NEGATIVE (NEGATIVE); OCCULT BLOOD URINE NEGATIVE (NEGATIVE); PROTEIN URINE NEGATIVE (NEGATIVE); SPECIFIC GRAVITY URINE 1.019 (1.005-1.030); UROBILINOGEN URINE 0.2 E.U./dL (0.2-1.0)
[2017-06-18 20:57] LABS: BASOPHILS % 0.4 % (0.0-2.0); EOSINOPHILS % 0.3 % (0.0-5.0); HEMATOCRIT. 38.2 % (42.0-52.0); LYMPHOCYTES % 39.4 % (20.0-50.0); MEAN CORPUSCULAR HEMOGLOBIN 30.2 pg (28.0-32.0); MEAN CORPUSCULAR VOLUME 88.7 fL (80.0-94.0); MEAN PLATELET VOLUME 8.3 fl (7.4-10.4); MONOCYTES % 11.7 % (2.0-8.0); NEUTROPHILS % 48.2 % (40.0-76.0); PLATELET 178 x1000/uL (130-400); RED CELL DISTRIBUTION WIDTH 15.6 % (11.6-14.6)
[2017-06-18 20:59] LABS: *AMPHETAMINES SCREEN URINE NEGATIVE (NEGATIVE); *BARBITURATES SCREEN URINE NEGATIVE (NEGATIVE); *BENZODIAZEPINES SCREEN URINE NEGATIVE (NEGATIVE); *COCAINE SCREEN URINE NEGATIVE (NEGATIVE); CANNABINOID URINE SCREEN NEGATIVE (NEGATIVE); METHADONE URINE SCREEN NEGATIVE (NEGATIVE); OPIATES URINE SCREEN NEGATIVE (NEGATIVE); PHENCYCLIDINE URINE SCREEN NEGATIVE (NEGATIVE)
[2017-06-18 21:09] LABS: CARBON DIOXIDE 27 mEq/L (21-32); CHLORIDE 108 mEq/L (98-107)
[2017-06-18] MEDS ORDERED: MORPHINE SULFATE 4 MG/ML CPJ (NOT FOR IM USE) IV NR (22:08)
[2017-06-18 22:23] LABS: TROPONIN I < 0.02 ng/mL (0.00-0.04)
[2017-06-19 02:23] VITALS: BP 162/98
[2017-06-19] MEDS: POTASSIUM CHLORIDE 20MEQ TABLET SR PO SCH ×2 (02:33→08:57)
[2017-06-19] MEDS ORDERED: DEXTROSE 50% WATER 50ML SYRINGE IV PRN (03:30)
[2017-06-19] MEDS ORDERED: IPRATROPIUM/ALBUTEROL 0.5-3(2.5)MG/3ML NEB HHN PRN (03:30)
[2017-06-19] MEDS ORDERED: FAMO40TA70 PO (03:37)
[2017-06-19] MEDS ORDERED: DOCU-138 PO (03:37)
[2017-06-19 04:00] VITALS: BP 155/101
[2017-06-19] MEDS: LISINOPRIL 40MG TABLET PO SCH (04:14)
[2017-06-19] MEDS: AMLODIPINE 5MG TABLET PO SCH (04:14)
[2017-06-19] MEDS: MORPHINE SULFATE 4 MG/ML CPJ (NOT FOR IM USE) IV PRN ×5 (04:15→22:44)
[2017-06-19] MEDS ORDERED: BLOOD SUGAR DIAGNOSTIC STRIP TEST SCH (07:40)
[2017-06-19 08:00] VITALS: BP 159/103
[2017-06-19] MEDS ORDERED: INSULIN LISPRO 100 UNITS/ML SUBCUT SCH (08:10)
[2017-06-19] MEDS: ISOSORBIDE MONONITRATE 60MG TABLET SR 24HR PO SCH (08:56)
[2017-06-19] MEDS: CLOPIDOGREL 75MG TABLET PO SCH (08:57)
[2017-06-19] MEDS: ASPIRIN 81MG EC TABLET PO SCH (08:57)
[2017-06-19] MEDS: CITALOPRAM HYDROBROMIDE 20MG TABLET PO SCH (08:57)
[2017-06-19] MEDS: FAMOTIDINE 20MG TABLET PO SCH (08:57)
[2017-06-19] MEDS: LEVETIRACETAM 500MG TABLET PO SCH ×2 (08:57→17:10)
[2017-06-19] MEDS: DORZOLAMIDE 2% OPHTH 10 ML BOTTLE LEFTEYE SCH ×3 (08:58→17:10)
[2017-06-19] MEDS ORDERED: MEDICATION NOT ON FORMULARY EA (Famotidine (Pepcid) 20 MG) PO SCH (09:00)
[2017-06-19] MEDS ORDERED: MEDICATION NOT ON FORMULARY EA (Brinzolamide/Brimonid Tart (Simbrinza 1%-0.2% Eye Drops) LEFTEYE SCH (09:00)
[2017-06-19 12:00] VITALS: BP 112/70
[2017-06-19 16:00] VITALS: BP 109/76
[2017-06-19 20:00] VITALS: BP 141/90
[2017-06-19] MEDS ORDERED: TRAZODONE HCL 100MG TABLET PO SCH (21:00)
[2017-06-19] MEDS ORDERED: LATANOPROST 0.005% OPHTH DROPS 2.5ML LEFTEYE SCH (21:00)
[2017-06-19] MEDS ORDERED: ATORVASTATIN CALCIUM 40MG TABLET PO SCH (21:00)
[2017-06-19] MEDS ORDERED: TERAZOSIN HCL 1MG CAPSULE PO SCH (21:00)
[2017-06-19] MEDS ORDERED: MEDICATION NOT ON FORMULARY EA (Atorvastatin Calcium (Lipitor) 80 MG) PO SCH (21:00)
[2017-06-19] MEDS: CARISOPRODOL 350 MG TABLET PO PRN (21:12)
[2017-06-20] VITALS: BP 115/82
[2017-06-20 04:00] VITALS: BP 146/81
[2017-06-20] MEDS: MORPHINE SULFATE 4 MG/ML CPJ (NOT FOR IM USE) IV PRN ×2 (05:44→10:29)
[2017-06-20 06:52] LABS: HEMATOCRIT. 38.1 % (42.0-52.0); MEAN CORPUSCULAR HEMOGLOBIN 30.2 pg (28.0-32.0); MEAN CORPUSCULAR VOLUME 88.8 fL (80.0-94.0); MEAN PLATELET VOLUME 8.5 fl (7.4-10.4); PLATELET 177 x1000/uL (130-400); RED BLOOD CELL COUNT 4.29 mill/uL (4.7-6.1); RED CELL DISTRIBUTION WIDTH 15.5 % (11.6-14.6)
[2017-06-20 07:15] LABS: CARBON DIOXIDE 29 mEq/L (21-32); CHLORIDE 107 mEq/L (98-107)
[2017-06-20 08:00] VITALS: BP 102/81
[2017-06-20] MEDS: ISOSORBIDE MONONITRATE 60MG TABLET SR 24HR PO SCH (09:00)
[2017-06-20] MEDS: LISINOPRIL 40MG TABLET PO SCH (09:00)
[2017-06-20] MEDS: AMLODIPINE 5MG TABLET PO SCH (09:00)
[2017-06-20] MEDS: CLOPIDOGREL 75MG TABLET PO SCH (10:27)
[2017-06-20] MEDS: FAMOTIDINE 20MG TABLET PO SCH (10:27)
[2017-06-20] MEDS: ASPIRIN 81MG EC TABLET PO SCH (10:27)
[2017-06-20] MEDS: CITALOPRAM HYDROBROMIDE 20MG TABLET PO SCH (10:27)
[2017-06-20] MEDS: LEVETIRACETAM 500MG TABLET PO SCH (10:27)
[2017-06-20] MEDS: DORZOLAMIDE 2% OPHTH 10 ML BOTTLE LEFTEYE SCH ×2 (10:28→14:13)
[2017-06-20 12:00] VITALS: BP 148/92
[2017-06-20] MEDS: CARISOPRODOL 350 MG TABLET PO PRN (14:13)
[2017-06-20 17:01] VITALS: BP 140/85
[2017-06-20 18:16] LABS: ATYPICAL LYMPHOCYTES 1; PLATELET ESTIMATE NORMAL
[2017-07-26] MEDS ORDERED: LORA10TA7 PO (23:29)
[2017-07-26] MEDS ORDERED: THIA100T75 PO (23:29)
== END 2017-06-20 17:15 | disposition home or self-care (01) | DRG 58 ==
LOC: ER 13:58 → 7WST 06-19 00:23 → ENRESERV 06-19 01:15
PROVIDERS: ADMIT Internal Medicine; ATTEND Internal Medicine
DX: R20.2 Paresthesia of skin (principal); E11.42 Type 2 diabetes mellitus with diabetic polyneuropathy; I10 Essential (primary) hypertension; E78.5 Hyperlipidemia, unspecified; M53.3 Sacrococcygeal disorders, not elsewhere classified; E87.6 Hypokalemia; E78.00 Pure hypercholesterolemia, unspecified; F17.210 Nicotine dependence, cigarettes, uncomplicated; Z79.02 Long term (current) use of antithrombotics/antiplatelets; Z79.82 Long term (current) use of aspirin; Z79.899 Other long term (current) drug therapy; R20.0 Anesthesia of skin
CPT/HCPCS: 36415; 70450; 70490; 80048; 80053; 80305; 81003; 82962; 83036; 83880; 84484; 85025; 85651; 87040; 87077; 87086; 87186; 93970; J2270; J7620

== ENCOUNTER 2017-07-04 13:34 | Inpatient (IN) | payer MEDICAID ==
[~2017-07-04] VITALS: Ht 170.2 cm; Wt 77.1 kg
[~2017-07-04 13:34] MED LIST changes: +DOCU-138 PO; +FAMO40TA70 PO
[2017-07-04] MEDS ORDERED: SODIUM CHLORIDE 0.9% 500 ML IV ONE (15:51)
[2017-07-04] MEDS ORDERED: HYDROCODONE/ACETAMINOPHEN 5/325MG TABLET PO ONE (16:15)
[2017-07-04] MEDS ORDERED: CLONIDINE 0.2MG TABLET PO ONE (16:15)
[2017-07-04 16:58] LABS: BASOPHILS % 0.3 % (0.0-2.0); EOSINOPHILS % 0.5 % (0.0-5.0); HEMATOCRIT. 40.8 % (42.0-52.0); HEMOGLOBIN. 13.8 g/dL (14.0-18.0); LYMPHOCYTES % 45.4 % (20.0-50.0); MEAN CORPUSCULAR HEMOGLOBIN 30.2 pg (28.0-32.0); MEAN CORPUSCULAR VOLUME 89.6 fL (80.0-94.0); MEAN PLATELET VOLUME 8.9 fl (7.4-10.4); MONOCYTES % 11.7 % (2.0-8.0); NEUTROPHILS % 42.1 % (40.0-76.0); PLATELET 167 x1000/uL (130-400); RED BLOOD CELL COUNT 4.56 mill/uL (4.7-6.1); RED CELL DISTRIBUTION WIDTH 15.3 % (11.6-14.6)
[2017-07-04 17:03] LABS: INR 1.1; PARTIAL THROMBOPLASTIN TIME 28.9 sec (23.4-31.0); PROTHROMBIN TIME 11.9 sec (9.4-11.6)
[2017-07-04 17:11] LABS: CARBON DIOXIDE 30 mEq/L (21-32); CHLORIDE 106 mEq/L (98-107); CREATINE KINASE MB FRACTION 0.9 ng/mL (0.5-3.6); TROPONIN I < 0.02 ng/mL (0.00-0.04)
[2017-07-04] MEDS ORDERED: ASPIRIN 325MG EC TABLET PO ONE (18:00)
[2017-07-04] MEDS ORDERED: POTASSIUM CHLORIDE 20MEQ TABLET SR PO ONE (18:00)
[2017-07-04] MEDS ORDERED: NITROGLYCERIN 0.4MG TABLET SL SL PRN (19:45)
[2017-07-04] MEDS ORDERED: CLONIDINE 0.1MG TABLET PO ONE (19:45)
[2017-07-04 20:20] VITALS: BP 158/101
[2017-07-04] MEDS ORDERED: AMLO10TA80 PO (21:22)
[2017-07-04] MEDS ORDERED: ISOS20TA57 PO (21:28)
[2017-07-04] MEDS ORDERED: LISI-604 PO (21:30)
[2017-07-04] MEDS ORDERED: DOCUSATE SODIUM 100MG CAPSULE PO PRN (21:44)
[2017-07-04] MEDS: ATORVASTATIN CALCIUM 40MG TABLET PO SCH (22:11)
[2017-07-04] MEDS: LISINOPRIL 20MG TABLET PO SCH (22:11)
[2017-07-04] MEDS: AMLODIPINE 10MG TABLET PO SCH (22:11)
[2017-07-04] MEDS: MORPHINE SULFATE 4 MG/ML CPJ (NOT FOR IM USE) IV PRN (22:12)
[2017-07-04] MEDS: LATANOPROST 0.005% OPHTH DROPS 2.5ML LEFTEYE SCH (23:47)
[2017-07-05] VITALS: BP 121/76
[2017-07-05] MEDS: MORPHINE SULFATE 4 MG/ML CPJ (NOT FOR IM USE) IV PRN ×2 (03:21→08:23)
[2017-07-05 04:00] VITALS: BP 120/72
[2017-07-05 08:09] VITALS: BP 157/86
[2017-07-05] MEDS: CLOPIDOGREL 75MG TABLET PO SCH (08:10)
[2017-07-05] MEDS: DORZOLAMIDE 2% OPHTH 10 ML BOTTLE LEFTEYE SCH ×3 (08:10→16:19)
[2017-07-05] MEDS: ISOSORBIDE DINITRATE 30MG TABLET PO SCH (08:10)
[2017-07-05] MEDS: AMLODIPINE 10MG TABLET PO SCH (08:10)
[2017-07-05] MEDS: FAMOTIDINE 20MG TABLET PO SCH (08:11)
[2017-07-05] MEDS: LISINOPRIL 20MG TABLET PO SCH (08:11)
[2017-07-05] MEDS: LEVETIRACETAM 500MG TABLET PO SCH ×2 (08:11→16:19)
[2017-07-05] MEDS: ASPIRIN 81MG EC TABLET PO SCH (08:11)
[2017-07-05] MEDS: CITALOPRAM HYDROBROMIDE 20MG TABLET PO SCH (08:14)
[2017-07-05] MEDS ORDERED: MEDICATION NOT ON FORMULARY EA (Famotidine (Pepcid) 20 MG) PO SCH (09:00)
[2017-07-05] MEDS ORDERED: MEDICATION NOT ON FORMULARY EA (Brinzolamide/Brimonid Tart (Simbrinza 1%-0.2% Eye Drops) LEFTEYE SCH (09:00)
[2017-07-05] MEDS ORDERED: ISOSORBIDE MONONITRATE 20MG TABLET PO SCH (09:00)
[2017-07-05 12:06] VITALS: BP 107/67
[2017-07-05] MEDS: HYDROCODONE/ACETAMINOPHEN 10/325MG TABLET PO PRN ×2 (13:35→20:50)
[2017-07-05 15:30] LABS: *AMPHETAMINES SCREEN URINE NEGATIVE (NEGATIVE); *BARBITURATES SCREEN URINE NEGATIVE (NEGATIVE); *BENZODIAZEPINES SCREEN URINE NEGATIVE (NEGATIVE); *COCAINE SCREEN URINE NEGATIVE (NEGATIVE); CANNABINOID URINE SCREEN NEGATIVE (NEGATIVE); METHADONE URINE SCREEN NEGATIVE (NEGATIVE); OPIATES URINE SCREEN PRESUMTIVE POSITIVE (NEGATIVE); PHENCYCLIDINE URINE SCREEN NEGATIVE (NEGATIVE)
[2017-07-05 16:00] VITALS: BP 121/71
[2017-07-05 20:00] VITALS: BP 110/77
[2017-07-05] MEDS: TERAZOSIN HCL 1MG CAPSULE PO SCH (20:47)
[2017-07-05] MEDS: ATORVASTATIN CALCIUM 40MG TABLET PO SCH (20:47)
[2017-07-05] MEDS: LATANOPROST 0.005% OPHTH DROPS 2.5ML LEFTEYE SCH (20:49)
[2017-07-05] MEDS ORDERED: MEDICATION NOT ON FORMULARY EA (Atorvastatin Calcium (Lipitor) 80 MG) PO SCH (21:00)
[2017-07-05] MEDS ORDERED: TRAZ-129 PO (21:36)
[2017-07-05] MEDS: TRAZODONE HCL 50MG TABLET PO SCH (22:17)
[2017-07-06] VITALS: BP 150/85
[2017-07-06] MEDS: HYDROCODONE/ACETAMINOPHEN 10/325MG TABLET PO PRN ×4 (02:42→22:07)
[2017-07-06 04:00] VITALS: BP 146/86
[2017-07-06 08:00] VITALS: BP 161/89
[2017-07-06] MEDS: FAMOTIDINE 20MG TABLET PO SCH (08:36)
[2017-07-06] MEDS: LISINOPRIL 20MG TABLET PO SCH (08:37)
[2017-07-06] MEDS: AMLODIPINE 10MG TABLET PO SCH (08:37)
[2017-07-06] MEDS: CITALOPRAM HYDROBROMIDE 20MG TABLET PO SCH (08:37)
[2017-07-06] MEDS: ASPIRIN 81MG EC TABLET PO SCH (08:37)
[2017-07-06] MEDS: CLOPIDOGREL 75MG TABLET PO SCH (08:37)
[2017-07-06] MEDS: DORZOLAMIDE 2% OPHTH 10 ML BOTTLE LEFTEYE SCH ×2 (08:37→17:56)
[2017-07-06] MEDS: LEVETIRACETAM 500MG TABLET PO SCH ×2 (08:37→17:56)
[2017-07-06] MEDS: ISOSORBIDE DINITRATE 30MG TABLET PO SCH (08:37)
[2017-07-06] MEDS: BRIMONIDINE 0.2% OPHTH DROPS 5ML LEFTEYE SCH ×3 (08:38→17:57)
[2017-07-06] MEDS ORDERED: DORZOLAMIDE 2% OPHTH 10 ML BOTTLE LEFTEYE SCH (09:00)
[2017-07-06 12:00] VITALS: BP 130/73
[2017-07-06 16:00] VITALS: BP 128/74
[2017-07-06 20:00] VITALS: BP 124/72
[2017-07-06] MEDS: TRAZODONE HCL 50MG TABLET PO SCH (20:54)
[2017-07-06] MEDS: TERAZOSIN HCL 1MG CAPSULE PO SCH (20:54)
[2017-07-06] MEDS: ATORVASTATIN CALCIUM 40MG TABLET PO SCH (20:55)
[2017-07-06] MEDS: LATANOPROST 0.005% OPHTH DROPS 2.5ML LEFTEYE SCH (20:55)
[2017-07-07] VITALS: BP 145/90
[2017-07-07 04:00] VITALS: BP 146/87
[2017-07-07] MEDS: HYDROCODONE/ACETAMINOPHEN 10/325MG TABLET PO PRN ×2 (04:10→10:06)
[2017-07-07 08:00] VITALS: BP 161/90
[2017-07-07] MEDS: ISOSORBIDE DINITRATE 30MG TABLET PO SCH (08:30)
[2017-07-07] MEDS: ASPIRIN 81MG EC TABLET PO SCH (08:30)
[2017-07-07] MEDS: CLOPIDOGREL 75MG TABLET PO SCH (08:30)
[2017-07-07] MEDS: AMLODIPINE 10MG TABLET PO SCH (08:30)
[2017-07-07] MEDS: LISINOPRIL 20MG TABLET PO SCH (08:30)
[2017-07-07] MEDS: LEVETIRACETAM 500MG TABLET PO SCH (08:30)
[2017-07-07] MEDS: CITALOPRAM HYDROBROMIDE 20MG TABLET PO SCH (08:30)
[2017-07-07] MEDS: FAMOTIDINE 20MG TABLET PO SCH (08:30)
[2017-07-07] MEDS: BRIMONIDINE 0.2% OPHTH DROPS 5ML LEFTEYE SCH ×2 (08:31→13:32)
[2017-07-07] MEDS: DORZOLAMIDE 2% OPHTH 10 ML BOTTLE LEFTEYE SCH ×2 (08:31→13:31)
[2017-07-07 12:00] VITALS: BP 122/64
[2017-07-26] MEDS ORDERED: LORA10TA7 PO (23:29)
[2017-07-26] MEDS ORDERED: THIA100T75 PO (23:29)
== END 2017-07-07 13:30 | disposition home or self-care (01) | DRG 347 ==
LOC: ER 16:25 → 7WST 18:12 → EDBEDREQTM 18:13 → EDBEDREQ 18:13 → ENRESERV 18:54 → EDBEDREQ 20:16
PROVIDERS: ADMIT Internal Medicine; ATTEND Internal Medicine
DX: M48.02 Spinal stenosis, cervical region (principal); M47.12 Other spondylosis with myelopathy, cervical region; I69.354 Hemiplegia and hemiparesis following cerebral infarction affecting left non-dominant side; E83.51 Hypocalcemia; I10 Essential (primary) hypertension; R07.89 Other chest pain; E78.00 Pure hypercholesterolemia, unspecified; E78.5 Hyperlipidemia, unspecified; G40.909 Epilepsy, unspecified, not intractable, without status epilepticus; F19.10 Other psychoactive substance abuse, uncomplicated; F17.200 Nicotine dependence, unspecified, uncomplicated; Z98.1 Arthrodesis status; Z79.899 Other long term (current) drug therapy; Z79.82 Long term (current) use of aspirin; M94.0 Chondrocostal junction syndrome [Tietze]
CPT/HCPCS: 36415; 70450; 70551; 71010; 72125; 72141; 80053; 80305; 82553; 82962; 84484; 85025; 85610; 85730; 93005; 93306; 93880; 96360; 96361; 97116; 97162; 97166; 99285; G0482; J2270; J7030; J7040

== ENCOUNTER 2017-09-28 09:34 | Emergency (ER) | payer MEDICAID ==
[~2017-09-28] VITALS: Ht 170.2 cm; Wt 77.0 kg
[~2017-09-28 09:34] MED LIST changes: +AMLO10TA80 PO; -AMLO5TAB88 PO; +ISOS20TA57 PO; -ISOS60TA4 PO; +LISI-604 PO; -LISI40TA4 PO; +LORA10TA7 PO; +THIA100T75 PO; +TRAZ-129 PO; -TRAZ-132 PO
[2017-09-28] MEDS: ASPIRIN 81MG TABLET PO ONE (12:20)
[2017-09-28 12:22] LABS: CLARITY URINE CLEAR (CLEAR); COLOR URINE YELLOW (YELLOW); KETONES URINE NEGATIVE (NEGATIVE); LEUKOCYTE ESTERASE URINE NEGATIVE (NEGATIVE); NITRITE URINE NEGATIVE (NEGATIVE); OCCULT BLOOD URINE NEGATIVE (NEGATIVE); PH URINE 6.5 (4.5-8.0); PROTEIN URINE NEGATIVE (NEGATIVE); SPECIFIC GRAVITY URINE 1.006 (1.005-1.030)
[2017-09-28] MEDS: MORPHINE SULFATE 10 MG/ML CPJ IV NR (12:35)
[2017-09-28 12:45] LABS: *AMPHETAMINES SCREEN URINE NEGATIVE (NEGATIVE); *BARBITURATES SCREEN URINE NEGATIVE (NEGATIVE); *BENZODIAZEPINES SCREEN URINE NEGATIVE (NEGATIVE); *COCAINE SCREEN URINE NEGATIVE (NEGATIVE); CANNABINOID URINE SCREEN NEGATIVE (NEGATIVE); METHADONE URINE SCREEN NEGATIVE (NEGATIVE); OPIATES URINE SCREEN NEGATIVE (NEGATIVE); PHENCYCLIDINE URINE SCREEN NEGATIVE (NEGATIVE)
[2017-09-28 12:46] LABS: BASOPHILS % 0.2 % (0.0-2.0); EOSINOPHILS % 0.2 % (0.0-5.0); HEMATOCRIT. 42.3 % (42.0-52.0); HEMOGLOBIN. 14.1 g/dL (14.0-18.0); LYMPHOCYTES % 15.8 % (20.0-50.0); MEAN CORPUSCULAR HEMOGLOBIN 30.1 pg (28.0-32.0); MEAN CORPUSCULAR VOLUME 90.4 fL (80.0-94.0); MEAN PLATELET VOLUME 8.1 fl (7.4-10.4); MONOCYTES % 12.4 % (2.0-8.0); NEUTROPHILS % 71.4 % (40.0-76.0); PLATELET 177 x1000/uL (130-400); RED BLOOD CELL COUNT 4.68 mill/uL (4.7-6.1); RED CELL DISTRIBUTION WIDTH 15.7 % (11.6-14.6)
[2017-09-28 12:52] LABS: PROTHROMBIN TIME 10.8 sec (9.4-11.6)
[2017-09-28] MEDS: MORPHINE SULFATE 4 MG/ML CPJ (NOT FOR IM USE) IV ONE (12:53)
[2017-09-28 12:58] LABS: CARBON DIOXIDE 32 mEq/L (21-32); CHLORIDE 103 mEq/L (98-107); TROPONIN I < 0.02 ng/mL (0.00-0.04)
[2017-09-28] MEDS: LISINOPRIL 20MG TABLET PO ONE (13:42)
[2017-09-28] MEDS: GUAIFENESIN-DM 200MG-20MG/10ML UDC PO ONE (15:57)
[2017-09-28] MEDS: POTASSIUM CHLORIDE 20MEQ TABLET SR PO ONE (16:44)
[2017-09-28 17:00] VITALS: BP 163/92
== END 2017-09-28 17:11 | disposition home or self-care (01) ==
LOC: ER 10:45
DX: F16.10 Hallucinogen abuse, uncomplicated (principal); J06.9 Acute upper respiratory infection, unspecified; E83.51 Hypocalcemia; D72.819 Decreased white blood cell count, unspecified; E87.6 Hypokalemia; E78.00 Pure hypercholesterolemia, unspecified; R10.13 Epigastric pain; R20.0 Anesthesia of skin; E86.0 Dehydration; R74.0 Nonspecific elevation of levels of transaminase and lactic acid dehydrogenase [LDH]; I11.0 Hypertensive heart disease with heart failure; I50.9 Heart failure, unspecified; Z79.82 Long term (current) use of aspirin; Z87.891 Personal history of nicotine dependence
CPT/HCPCS: 36415; 71010; 80053; 80305; 81003; 83036; 83880; 84484; 85025; 85610; 93005; 96374; 99285; J2270; Z7610

== ENCOUNTER 2017-10-09 07:15 | Emergency (ER) | payer MEDICAID ==
[~2017-10-09] VITALS: Ht 170.2 cm; Wt 82.0 kg
[2017-10-09 08:17] VITALS: BP 162/96
[2017-10-09] MEDS ORDERED: ALBUTEROL (0.083%) 2.5MG/3ML NEB HHN STA (08:57)
[2017-10-09] MEDS ORDERED: PREDNISONE 20MG TABLET PO ONE (10:00)
== END 2017-10-09 11:13 | disposition home or self-care (01) ==
LOC: ER 07:47
DX: J44.1 Chronic obstructive pulmonary disease with (acute) exacerbation (principal); I50.9 Heart failure, unspecified; I11.0 Hypertensive heart disease with heart failure; E78.00 Pure hypercholesterolemia, unspecified; G89.29 Other chronic pain; F17.200 Nicotine dependence, unspecified, uncomplicated; E78.5 Hyperlipidemia, unspecified; Z79.82 Long term (current) use of aspirin; Z79.899 Other long term (current) drug therapy
CPT/HCPCS: 71045; 93005; 94640; 99284; J7512; J7611

== ENCOUNTER 2017-11-02 13:38 | Emergency (ER) | payer MEDICAID ==
[~2017-11-02] VITALS: Ht 170.2 cm; Wt 77.0 kg
[2017-11-02] MEDS ORDERED: KETOROLAC 60MG/2ML VIAL IM ONE (15:45)
[2017-11-02 16:07] LABS: BASOPHILS % 0.3 % (0.0-2.0); CARBON DIOXIDE 29 mEq/L (21-32); CHLORIDE 107 mEq/L (98-107); EOSINOPHILS % 0.9 % (0.0-5.0); HEMATOCRIT. 37.4 % (42.0-52.0); HEMOGLOBIN. 12.4 g/dL (14.0-18.0); LYMPHOCYTES % 54.5 % (20.0-50.0); MEAN CORPUSCULAR HEMOGLOBIN 29.9 pg (28.0-32.0); MEAN CORPUSCULAR VOLUME 90.2 fL (80.0-94.0); MEAN PLATELET VOLUME 7.7 fl (7.4-10.4); MONOCYTES % 11.7 % (2.0-8.0); NEUTROPHILS % 32.6 % (40.0-76.0); PLATELET 163 x1000/uL (130-400); RED BLOOD CELL COUNT 4.15 mill/uL (4.7-6.1); RED CELL DISTRIBUTION WIDTH 16.4 % (11.6-14.6)
[2017-11-02 19:32] VITALS: BP 151/89
== END 2017-11-02 19:37 | disposition home or self-care (01) ==
LOC: ER 14:10
DX: K27.9 Peptic ulcer, site unspecified, unspecified as acute or chronic, without hemorrhage or perforation (principal); R19.7 Diarrhea, unspecified; M54.2 Cervicalgia; I11.0 Hypertensive heart disease with heart failure; I50.9 Heart failure, unspecified; E78.00 Pure hypercholesterolemia, unspecified; Z79.82 Long term (current) use of aspirin
CPT/HCPCS: 36415; 70490; 74176; 80053; 83690; 85025; 96372; 99285; J1885

== ENCOUNTER 2017-12-01 09:34 | Emergency (ER) | payer MEDICAID ==
[~2017-12-01] VITALS: Ht 170.2 cm; Wt 77.0 kg
[2017-12-01] MEDS ORDERED: ONDANSETRON 4MG ODT PO STA (12:58)
[2017-12-01 13:15] LABS: BASOPHILS % 0.5 % (0.0-2.0); EOSINOPHILS % 0.3 % (0.0-5.0); HEMATOCRIT. 40.1 % (42.0-52.0); HEMOGLOBIN. 13.5 g/dL (14.0-18.0); LYMPHOCYTES % 45.3 % (20.0-50.0); MEAN CORPUSCULAR HEMOGLOBIN 29.9 pg (28.0-32.0); MEAN CORPUSCULAR VOLUME 89.1 fL (80.0-94.0); MEAN PLATELET VOLUME 7.8 fl (7.4-10.4); MONOCYTES % 10.4 % (2.0-8.0); NEUTROPHILS % 43.5 % (40.0-76.0); PLATELET 183 x1000/uL (130-400); RED CELL DISTRIBUTION WIDTH 16.7 % (11.6-14.6)
[2017-12-01] MEDS ORDERED: MORPHINE SULFATE 4 MG/ML CPJ (NOT FOR IM USE) IV ONE (13:15)
[2017-12-01 13:20] LABS: CHLORIDE 107 mEq/L (98-107)
[2017-12-01 13:23] LABS: INR 1.1; PROTHROMBIN TIME 11.7 sec (9.4-11.6)
[2017-12-01 15:10] LABS: CLARITY URINE CLEAR (CLEAR); COLOR URINE YELLOW (YELLOW); KETONES URINE NEGATIVE (NEGATIVE); LEUKOCYTE ESTERASE URINE NEGATIVE (NEGATIVE); NITRITE URINE NEGATIVE (NEGATIVE); OCCULT BLOOD URINE NEGATIVE (NEGATIVE); PH URINE 6.5 (4.5-8.0); PROTEIN URINE NEGATIVE (NEGATIVE); SPECIFIC GRAVITY URINE 1.005 (1.005-1.030); UROBILINOGEN URINE 0.2 E.U./dL (0.2-1.0)
[2017-12-01 16:29] VITALS: BP 163/101
== END 2017-12-01 16:42 | disposition home or self-care (01) ==
LOC: ER 12:02
DX: K40.90 Unilateral inguinal hernia, without obstruction or gangrene, not specified as recurrent (principal); R19.7 Diarrhea, unspecified; F17.200 Nicotine dependence, unspecified, uncomplicated; I11.0 Hypertensive heart disease with heart failure; I50.9 Heart failure, unspecified; E78.00 Pure hypercholesterolemia, unspecified; R56.9 Unspecified convulsions; Z79.82 Long term (current) use of aspirin; Z90.49 Acquired absence of other specified parts of digestive tract
CPT/HCPCS: 36415; 74176; 76870; 80053; 81003; 83690; 85025; 85610; 93976; 96374; 99285; J2270; Q0162

== ENCOUNTER 2018-01-12 06:40 | Emergency (ER) | payer MEDICAID ==
[~2018-01-12] VITALS: Ht 170.2 cm; Wt 73.0 kg
[2018-01-12] MEDS ORDERED: OXYCODONE HCL/ACETAMINOPHEN 5/325MG TABLET PO ONE (07:30)
[2018-01-12 08:43] VITALS: BP 141/76
== END 2018-01-12 08:45 | disposition home or self-care (01) ==
LOC: ER 08:01
DX: G89.18 Other acute postprocedural pain (principal); R10.9 Unspecified abdominal pain; I10 Essential (primary) hypertension; E78.00 Pure hypercholesterolemia, unspecified; Z98.890 Other specified postprocedural states; Z79.82 Long term (current) use of aspirin
CPT/HCPCS: 99283

== ENCOUNTER 2018-01-26 20:26 | Emergency (ER) | payer MEDICAID ==
[~2018-01-26] VITALS: Ht 170.2 cm; Wt 82.0 kg
[2018-01-27] MEDS ORDERED: HYDROCODONE/ACETAMINOPHEN 5/325MG TABLET PO STA (02:59)
[2018-01-27 03:22] LABS: CLARITY URINE CLEAR (CLEAR); COLOR URINE YELLOW (YELLOW); KETONES URINE NEGATIVE (NEGATIVE); LEUKOCYTE ESTERASE URINE NEGATIVE (NEGATIVE); NITRITE URINE NEGATIVE (NEGATIVE); OCCULT BLOOD URINE NEGATIVE (NEGATIVE); PH URINE 5.5 (4.5-8.0); PROTEIN URINE NEGATIVE (NEGATIVE); SPECIFIC GRAVITY URINE 1.017 (1.005-1.030); UROBILINOGEN URINE 0.2 E.U./dL (0.2-1.0)
[2018-01-27 03:34] LABS: BASOPHILS % 0.3 % (0.0-2.0); EOSINOPHILS % 1.4 % (0.0-5.0); HEMOGLOBIN. 13.1 g/dL (14.0-18.0); LYMPHOCYTES % 51.3 % (20.0-50.0); MEAN CORPUSCULAR HEMOGLOBIN 31.9 pg (28.0-32.0); MEAN PLATELET VOLUME 7.8 fl (7.4-10.4); MONOCYTES % 10.8 % (2.0-8.0); NEUTROPHILS % 36.2 % (40.0-76.0); PLATELET 162 x1000/uL (130-400); RED BLOOD CELL COUNT 4.12 mill/uL (4.7-6.1); RED CELL DISTRIBUTION WIDTH 15.7 % (11.6-14.6)
[2018-01-27 03:35] LABS: METHADONE URINE SCREEN NEGATIVE (NEGATIVE)
[2018-01-27 03:36] LABS: *AMPHETAMINES SCREEN URINE NEGATIVE (NEGATIVE); *BARBITURATES SCREEN URINE NEGATIVE (NEGATIVE); CANNABINOID URINE SCREEN NEGATIVE (NEGATIVE); OPIATES URINE SCREEN NEGATIVE (NEGATIVE); PHENCYCLIDINE URINE SCREEN NEGATIVE (NEGATIVE)
[2018-01-27 03:37] LABS: *BENZODIAZEPINES SCREEN URINE NEGATIVE (NEGATIVE); *COCAINE SCREEN URINE NEGATIVE (NEGATIVE)
[2018-01-27 03:40] LABS: CHLORIDE 107 mEq/L (98-107)
[2018-01-27 03:43] LABS: INR 1.1; PROTHROMBIN TIME 11.7 sec (9.4-11.6)
[2018-01-27] MEDS ORDERED: CLONIDINE 0.1MG TABLET PO ONE (04:00)
[2018-01-27 05:10] VITALS: BP 164/102
== END 2018-01-27 05:55 | disposition home or self-care (01) ==
LOC: ER 21:59
DX: R10.9 Unspecified abdominal pain (principal); R20.0 Anesthesia of skin; I10 Essential (primary) hypertension; F17.200 Nicotine dependence, unspecified, uncomplicated; H54.40 Blindness, one eye, unspecified eye; E78.00 Pure hypercholesterolemia, unspecified; Z79.82 Long term (current) use of aspirin; Z95.5 Presence of coronary angioplasty implant and graft; Z98.890 Other specified postprocedural states
CPT/HCPCS: 36415; 80053; 80305; 81003; 83690; 85025; 85610; 99284; Z7610

== ENCOUNTER 2018-02-26 07:33 | Emergency (ER) | payer MEDICAID ==
[~2018-02-26] VITALS: Ht 170.2 cm; Wt 81.0 kg
[2018-02-26] MEDS ORDERED: CLONIDINE 0.1MG TABLET PO ONE (08:00)
[2018-02-26] MEDS ORDERED: KETOROLAC 60MG/2ML VIAL IM STA (08:00)
[2018-02-26 08:20] LABS: BASOPHILS % 0.3 % (0.0-2.0); EOSINOPHILS % 0.6 % (0.0-5.0); HEMATOCRIT. 41.4 % (42.0-52.0); HEMOGLOBIN. 14.2 g/dL (14.0-18.0); LYMPHOCYTES % 40.4 % (20.0-50.0); MEAN CORPUSCULAR HEMOGLOBIN 31.3 pg (28.0-32.0); MEAN CORPUSCULAR VOLUME 91.4 fL (80.0-94.0); MEAN PLATELET VOLUME 7.7 fl (7.4-10.4); MONOCYTES % 13.4 % (2.0-8.0); NEUTROPHILS % 45.3 % (40.0-76.0); PLATELET 155 x1000/uL (130-400); RED BLOOD CELL COUNT 4.53 mill/uL (4.7-6.1); RED CELL DISTRIBUTION WIDTH 15.4 % (11.6-14.6)
[2018-02-26 08:25] LABS: CHLORIDE 108 mEq/L (98-107)
[2018-02-26 08:27] LABS: INR 1.1; PROTHROMBIN TIME 11.8 sec (9.4-11.6)
[2018-02-26 08:50] LABS: CLARITY URINE CLEAR (CLEAR); COLOR URINE DARK YELLOW (YELLOW); KETONES URINE NEGATIVE (NEGATIVE); LEUKOCYTE ESTERASE URINE NEGATIVE (NEGATIVE); NITRITE URINE NEGATIVE (NEGATIVE); OCCULT BLOOD URINE NEGATIVE (NEGATIVE); PROTEIN URINE TRACE (NEGATIVE)
[2018-02-26 10:38] VITALS: BP 159/89
== END 2018-02-26 10:42 | disposition home or self-care (01) ==
LOC: ER 07:44
DX: R10.9 Unspecified abdominal pain (principal); I11.0 Hypertensive heart disease with heart failure; I50.9 Heart failure, unspecified; K40.90 Unilateral inguinal hernia, without obstruction or gangrene, not specified as recurrent; E78.00 Pure hypercholesterolemia, unspecified; K76.0 Fatty (change of) liver, not elsewhere classified; F17.200 Nicotine dependence, unspecified, uncomplicated; Z79.82 Long term (current) use of aspirin; Z90.49 Acquired absence of other specified parts of digestive tract
CPT/HCPCS: 36415; 74176; 80053; 81003; 85025; 85610; 96372; 99285; J1885

== ENCOUNTER 2018-03-25 12:49 | Emergency (ER) | payer MEDICAID ==
[~2018-03-25] VITALS: Ht 170.2 cm; Wt 78.0 kg
[~2018-03-25 12:49] MED LIST changes: -DORZ10DR7 LEFTEYE; +DORZ10DR8 LEFTEYE
[2018-03-25] MEDS ORDERED: MORPHINE SULFATE 4 MG/ML CPJ (NOT FOR IM USE) IV STA (13:07)
[2018-03-25] MEDS ORDERED: ONDANSETRON HCL 4MG/2ML VIAL IV STA (13:07)
[2018-03-25 13:21] LABS: HEMOGLOBIN. 13.3 g/dL (14.0-18.0); MEAN CORPUSCULAR HEMOGLOBIN 31.4 pg (28.0-32.0); MEAN CORPUSCULAR VOLUME 92.5 fL (80.0-94.0); MEAN PLATELET VOLUME 7.7 fl (7.4-10.4); PLATELET 139 x1000/uL (130-400); RED BLOOD CELL COUNT 4.22 mill/uL (4.7-6.1)
[2018-03-25 13:26] LABS: CHLORIDE 105 mEq/L (98-107)
[2018-03-25 13:29] LABS: INR 1.1; PARTIAL THROMBOPLASTIN TIME 30.1 sec (23.4-31.0); PROTHROMBIN TIME 11.7 sec (9.4-11.6)
[2018-03-25 13:57] LABS: PLATELET ESTIMATE NORMAL
[2018-03-25] MEDS ORDERED: POTASSIUM CHLORIDE 20MEQ TABLET SR PO ONE (14:15)
[2018-03-25 14:41] VITALS: BP 162/99
== END 2018-03-25 15:10 | disposition home or self-care (01) ==
LOC: ER 13:14
DX: M54.12 Radiculopathy, cervical region (principal); I10 Essential (primary) hypertension; E87.8 Other disorders of electrolyte and fluid balance, not elsewhere classified; E78.00 Pure hypercholesterolemia, unspecified; I11.0 Hypertensive heart disease with heart failure; I50.9 Heart failure, unspecified; F17.200 Nicotine dependence, unspecified, uncomplicated; R94.31 Abnormal electrocardiogram [ECG] [EKG]; Z95.1 Presence of aortocoronary bypass graft; Z86.73 Personal history of transient ischemic attack (TIA), and cerebral infarction without residual deficits
CPT/HCPCS: 36415; 71045; 80048; 84484; 85025; 85610; 85730; 93005; 96374; 96375; 99285; J2270; J2405; Z7610

== ENCOUNTER 2018-06-20 14:19 | Emergency (ER) | payer MEDICAID ==
[~2018-06-20] VITALS: Ht 170.2 cm; Wt 77.0 kg
[~2018-06-20 14:19] MED LIST changes: -AMLO10TA80 PO; +AMLO5TAB88 PO; -TRAZ-129 PO; +TRAZ-212 PO
[2018-06-20 14:44] VITALS: BP 156/89
== END 2018-06-20 19:42 | disposition left against medical advice (07) ==
LOC: ER 14:19
DX: R09.81 Nasal congestion (principal); Z53.21 Procedure and treatment not carried out due to patient leaving prior to being seen by health care provider

== ENCOUNTER 2018-10-31 08:00 | Inpatient (IN) | payer MEDICAID, OTHER ==
[~2018-10-31] VITALS: Ht 170.2 cm; Wt 78.0 kg
[~2018-10-31 08:00] MED LIST changes: +BRIM5DRO6 LEFTEYE; +LATA2.5D2 LEFTEYE; -LATA2.5D2 OP
[2018-10-31] MEDS ORDERED: ALBUTEROL (0.083%) 2.5MG/3ML NEB HHN STA (09:34)
[2018-10-31] MEDS ORDERED: IPRATROPIUM BROMIDE (0.02%) 0.5MG/2.5ML NEB HHN STA (09:34)
[2018-10-31] MEDS ORDERED: MORPHINE SULFATE 4 MG/ML CPJ (NOT FOR IM USE) IV STA (09:52)
[2018-10-31] MEDS ORDERED: ONDANSETRON HCL 4MG/2ML INJ IV STA (09:52)
[2018-10-31 10:10] LABS: BASOPHILS % 0.3 % (0.0-2.0); EOSINOPHILS % 0.2 % (0.0-5.0); HEMATOCRIT. 43.7 % (42.0-52.0); HEMOGLOBIN. 14.7 g/dL (14.0-18.0); LYMPHOCYTES % 30.4 % (20.0-50.0); MEAN CORPUSCULAR HEMOGLOBIN 31.4 pg (28.0-32.0); MEAN CORPUSCULAR VOLUME 93.3 fL (80.0-94.0); MEAN PLATELET VOLUME 7.8 fl (7.4-10.4); MONOCYTES % 11.9 % (2.0-8.0); NEUTROPHILS % 57.2 % (40.0-76.0); PLATELET 188 x1000/uL (130-400); RED BLOOD CELL COUNT 4.69 mill/uL (4.7-6.1); RED CELL DISTRIBUTION WIDTH 14.9 % (11.6-14.6)
[2018-10-31 10:19] LABS: INR 1.1; PROTHROMBIN TIME 10.8 sec (9.1-11.1)
[2018-10-31 10:31] LABS: CHLORIDE 107 mEq/L (98-107)
[2018-10-31] MEDS ORDERED: IOHEXOL-350 100 ML BOTTLE ONE (13:00)
[2018-10-31] MEDS ORDERED: IOHEXOL-300 100 ML BOTTLE ONE (13:03)
[2018-10-31] MEDS ORDERED: ACETAMINOPHEN 325MG TABLET PO PRN (13:15)
[2018-10-31] MEDS ORDERED: CLONIDINE 0.1MG TABLET PO PRN (13:15)
[2018-10-31] MEDS ORDERED: DIPHENHYDRAMINE 50MG/ML VIAL IV PRN (13:15)
[2018-10-31] MEDS ORDERED: ONDANSETRON HCL 4MG/2ML INJ IV PRN (13:15)
[2018-10-31] MEDS ORDERED: NA PHOS,M-B/NA PHOS,DI-BA ENEMA 118ML PR PRN (13:15)
[2018-10-31] MEDS ORDERED: LORAZEPAM 2MG/ML CPJ IV PRN (13:15)
[2018-10-31] MEDS ORDERED: MAGNESIUM/ALUMINUM HYDROXIDE/SIMETHICONE 30ML UDC PO PRN (13:15)
[2018-10-31] MEDS ORDERED: DOCUSATE SODIUM 100MG CAPSULE PO PRN (13:15)
[2018-10-31] MEDS ORDERED: IPRATROPIUM/ALBUTEROL 0.5-3(2.5)MG/3ML NEB INH PRN (13:15)
[2018-10-31] MEDS ORDERED: GUAIFENESIN 200MG/10ML SUGAR FREE UDC PO PRN (13:15)
[2018-10-31] MEDS ORDERED: ASPIRIN 325MG TABLET PO NR (13:30)
[2018-10-31] MEDS ORDERED: ENOXAPARIN 40MG/0.4ML SYR SUBCUT NR (13:45)
[2018-10-31] MEDS: MORPHINE SULFATE 4 MG/ML CPJ (NOT FOR IM USE) IV PRN ×2 (15:10→22:59)
[2018-10-31 16:31] LABS: CHLORIDE 104 mEq/L (98-107)
[2018-10-31] MEDS: HYDROCODONE/ACETAMINOPHEN 5/325MG TABLET PO PRN (18:25)
[2018-10-31] MEDS ORDERED: SODIUM CHLORIDE 0.45% 1,000 ML IV SCH (22:30)
[2018-10-31] MEDS: CLOPIDOGREL 75MG TABLET PO SCH (22:58)
[2018-10-31 23:12] VITALS: BP 133/92
[2018-10-31] MEDS: AMLODIPINE 5MG TABLET PO SCH (23:33)
[2018-10-31] MEDS: LISINOPRIL 20MG TABLET PO SCH (23:34)
[2018-10-31 23:40] VITALS: BP 133/92
[2018-11-01] MEDS ORDERED: IBUP-2030 PO (03:40)
[2018-11-01] MEDS ORDERED: LATA2.5D2 LEFTEYE (03:40)
[2018-11-01] MEDS ORDERED: NITR0.4T49 SL (03:40)
[2018-11-01] MEDS ORDERED: ERYT1OIN6 EACHEYE (03:40)
[2018-11-01] MEDS ORDERED: GABA-531 PO (03:40)
[2018-11-01] MEDS ORDERED: LOSA100T14 PO (03:40)
[2018-11-01] MEDS ORDERED: ATEN50TA PO (03:40)
[2018-11-01] MEDS: HYDROCODONE/ACETAMINOPHEN 5/325MG TABLET PO PRN (03:54)
[2018-11-01 04:00] VITALS: BP 149/93
[2018-11-01 07:15] LABS: BASOPHILS % 0.3 % (0.0-2.0); EOSINOPHILS % 1.6 % (0.0-5.0); HEMOGLOBIN. 13.1 g/dL (14.0-18.0); LYMPHOCYTES % 45.5 % (20.0-50.0); MEAN CORPUSCULAR HEMOGLOBIN 31.4 pg (28.0-32.0); MEAN CORPUSCULAR VOLUME 93.7 fL (80.0-94.0); MEAN PLATELET VOLUME 9.1 fl (7.4-10.4); MONOCYTES % 14.5 % (2.0-8.0); NEUTROPHILS % 38.1 % (40.0-76.0); PLATELET 177 x1000/uL (130-400); RED BLOOD CELL COUNT 4.16 mill/uL (4.7-6.1)
[2018-11-01 07:26] LABS: CHLORIDE 107 mEq/L (98-107)
[2018-11-01] MEDS: MORPHINE SULFATE 4 MG/ML CPJ (NOT FOR IM USE) IV PRN (07:44)
[2018-11-01 07:50] LABS: LDL CHOLESTEROL 46 mg/dL (5-100)
[2018-11-01 07:52] LABS: HDL CHOLESTEROL 64 mg/dL (40-59); T4 FREE 1.01 ng/dL (0.76-1.46)
[2018-11-01 08:00] VITALS: BP 154/89
[2018-11-01] MEDS ORDERED: ASPIRIN 81MG EC TABLET PO SCH ×2 (09:00)
[2018-11-01] MEDS ORDERED: ENOXAPARIN 40MG/0.4ML SYR SUBCUT SCH (09:00)
[2018-11-01] MEDS: CLOPIDOGREL 75MG TABLET PO SCH (09:03)
[2018-11-01] MEDS: AMLODIPINE 5MG TABLET PO SCH (09:03)
[2018-11-01] MEDS: LISINOPRIL 20MG TABLET PO SCH (09:03)
[2018-11-01 09:42] VITALS: BP 154/89
[2018-11-01] MEDS ORDERED: INFLUENZA VIRUS VACCINE(AFLURIA) 0.5ML SYR IM ONE (10:00)
== END 2018-11-01 10:03 | disposition home or self-care (01) | DRG 198 ==
LOC: ER 08:00 → 6WST 13:02 → EDBEDREQ 15:33 → ENRESERV 20:42
PROVIDERS: ADMIT Internal Medicine; ATTEND Internal Medicine
DX: R07.89 Other chest pain (principal); I25.10 Atherosclerotic heart disease of native coronary artery without angina pectoris; I11.0 Hypertensive heart disease with heart failure; I50.9 Heart failure, unspecified; I65.21 Occlusion and stenosis of right carotid artery; R00.0 Tachycardia, unspecified; E78.00 Pure hypercholesterolemia, unspecified; E78.5 Hyperlipidemia, unspecified; F17.200 Nicotine dependence, unspecified, uncomplicated; J44.9 Chronic obstructive pulmonary disease, unspecified; H40.9 Unspecified glaucoma; I69.351 Hemiplegia and hemiparesis following cerebral infarction affecting right dominant side; Z79.82 Long term (current) use of aspirin; Z79.899 Other long term (current) drug therapy; Z82.49 Family history of ischemic heart disease and other diseases of the circulatory system; Z90.49 Acquired absence of other specified parts of digestive tract; Z95.5 Presence of coronary angioplasty implant and graft
CPT/HCPCS: 36415; 70496; 70498; 71045; 71275; 74174; 80048; 80061; 83880; 84439; 84443; 84484; 93005; 96372; 96374; 96375; 99291; J1650; J2270; J2405; J7611; Q9967

== ENCOUNTER 2018-12-16 15:56 | Emergency (ER) | payer OTHER ==
[~2018-12-16] VITALS: Ht 170.2 cm; Wt 77.5 kg
[~2018-12-16 15:56] MED LIST changes: -ASCO500T20 PO; +ATEN50TA PO; -ATOR80TA PO; -BRIN8DRO LEFTEYE; -CHOL400T28 PO; -CITA20TA19 PO; +ERYT1OIN6 EACHEYE; -FAMO40TA70 PO; +GABA-531 PO; +IBUP-2030 PO; -KEPP500 PO; -LORA10TA7 PO; +LOSA100T14 PO; +NITR0.4T49 SL; -THIA100T75 PO; -TRAZ-212 PO
[2018-12-16 16:19] VITALS: BP 135/78
== END 2018-12-16 19:30 | disposition left against medical advice (07) ==
LOC: ER 15:59
DX: Z53.21 Procedure and treatment not carried out due to patient leaving prior to being seen by health care provider (principal)
CPT/HCPCS: 93005

== ENCOUNTER 2019-01-09 08:26 | Inpatient (IN) | payer OTHER ==
[~2019-01-09] VITALS: Ht 170.2 cm; Wt 82.6 kg
[2019-01-09 10:28] LABS: HEMATOCRIT. 40.9 % (42.0-52.0); MEAN CORPUSCULAR HEMOGLOBIN 31.5 pg (28.0-32.0); MEAN CORPUSCULAR VOLUME 92.3 fL (80.0-94.0); MEAN PLATELET VOLUME 7.8 fl (7.4-10.4); PLATELET 142 x1000/uL (130-400); RED BLOOD CELL COUNT 4.43 mill/uL (4.7-6.1); RED CELL DISTRIBUTION WIDTH 15.6 % (11.6-14.6)
[2019-01-09 10:31] LABS: CHLORIDE 110 mEq/L (98-107)
[2019-01-09] MEDS ORDERED: IPRATROPIUM BROMIDE (0.02%) 0.5MG/2.5ML NEB HHN STA (10:41)
[2019-01-09] MEDS ORDERED: METHYLPREDNISOLONE SOD SUCC 125 MG/2 ML VIAL IV STA (10:41)
[2019-01-09] MEDS ORDERED: ALBUTEROL (0.083%) 2.5MG/3ML NEB HHN STA (10:41)
[2019-01-09] MEDS ORDERED: KETOROLAC 15MG/ML VIAL IV ONE (10:45)
[2019-01-09] MEDS ORDERED: DEXAMETHASONE 10 MG/ML VIAL IV ONE (10:45)
[2019-01-09 11:29] LABS: PLATELET ESTIMATE NORMAL
[2019-01-09 16:55] VITALS: BP 148/80
[2019-01-09] MEDS ORDERED: TRAZ-213 PO (17:27)
[2019-01-09] MEDS ORDERED: ZOLPIDEM TARTRATE 5MG TABLET PO PRN (18:00)
[2019-01-09] MEDS ORDERED: ACETAMINOPHEN 650MG/20.3ML UDC PO PRN (18:00)
[2019-01-09] MEDS: METHYLPREDNISOLONE SOD SUCC 40 MG/ML VIAL IV SCH (18:50)
[2019-01-09 20:00] VITALS: BP 143/85
[2019-01-09] MEDS: ENOXAPARIN 40MG/0.4ML SYR SUBCUT SCH (20:53)
[2019-01-09] MEDS: HYDROCODONE/ACETAMINOPHEN 5/325MG TABLET PO PRN (20:55)
[2019-01-09] MEDS: IPRATROPIUM/ALBUTEROL 0.5-3(2.5)MG/3ML NEB HHN SCH (21:06)
[2019-01-09] MEDS: GABAPENTIN 300MG CAPSULE PO SCH (22:55)
[2019-01-09] MEDS ORDERED: RANOLAZINE 500 MG TAB.SR.12H PO NR (23:00)
[2019-01-10] VITALS: BP 160/79
[2019-01-10] MEDS ORDERED: IBUPROFEN 400MG TABLET PO NR (00:30)
[2019-01-10] MEDS: CLONIDINE 0.1MG TABLET PO PRN ×2 (00:54→05:37)
[2019-01-10] MEDS: HYDROCODONE/ACETAMINOPHEN 5/325MG TABLET PO PRN ×3 (00:54→09:27)
[2019-01-10] MEDS: IPRATROPIUM/ALBUTEROL 0.5-3(2.5)MG/3ML NEB HHN SCH ×5 (01:19→22:42)
[2019-01-10] MEDS: METHYLPREDNISOLONE SOD SUCC 40 MG/ML VIAL IV SCH ×3 (02:10→17:39)
[2019-01-10 04:00] VITALS: BP 171/96
[2019-01-10] MEDS: GABAPENTIN 300MG CAPSULE PO SCH ×3 (05:37→21:18)
[2019-01-10 07:12] LABS: HEMATOCRIT. 40.8 % (42.0-52.0); HEMOGLOBIN. 13.8 g/dL (14.0-18.0); MEAN CORPUSCULAR HEMOGLOBIN 31.1 pg (28.0-32.0); MEAN CORPUSCULAR VOLUME 91.6 fL (80.0-94.0); PLATELET 143 x1000/uL (130-400); RED BLOOD CELL COUNT 4.45 mill/uL (4.7-6.1); RED CELL DISTRIBUTION WIDTH 15.2 % (11.6-14.6)
[2019-01-10 07:32] LABS: CHLORIDE 106 mEq/L (98-107)
[2019-01-10 07:55] LABS: LDL CHOLESTEROL 41 mg/dL (5-100)
[2019-01-10 07:56] LABS: HDL CHOLESTEROL 89 mg/dL (40-59)
[2019-01-10 08:00] VITALS: BP 150/87
[2019-01-10] MEDS ORDERED: AMLODIPINE 5MG TABLET PO SCH (09:00)
[2019-01-10] MEDS ORDERED: ASPIRIN 81MG TABLET PO SCH (09:00)
[2019-01-10] MEDS: ISOSORBIDE MONONITRATE 30MG TABLET SR 24HR PO SCH (09:28)
[2019-01-10] MEDS: ASPIRIN 81MG TABLET PO SCH (09:28)
[2019-01-10] MEDS: CLOPIDOGREL 75MG TABLET PO SCH (09:28)
[2019-01-10] MEDS: ATENOLOL 50 MG TABLET PO SCH (09:29)
[2019-01-10] MEDS: LACTULOSE 20G/30ML UDC PO SCH ×2 (09:29→17:00)
[2019-01-10] MEDS: LISINOPRIL 20MG TABLET PO SCH ×2 (09:31→21:17)
[2019-01-10 11:04] LABS: PLATELET ESTIMATE NORMAL
[2019-01-10 11:49] VITALS: BP 120/67
[2019-01-10 12:35] LABS: T4 FREE 1.08 ng/dL (0.76-1.46)
[2019-01-10] MEDS: HYDROCODONE/ACETAMINOPHEN 10/325MG TABLET PO PRN ×3 (13:24→23:10)
[2019-01-10] MEDS: DORZOLAMIDE 2% OPHTH 10 ML BOTTLE LEFTEYE SCH ×2 (13:25→21:17)
[2019-01-10] MEDS: BRIMONIDINE 0.2% OPHTH DROPS 5ML LEFTEYE SCH ×2 (13:25→21:17)
[2019-01-10] MEDS ORDERED: GADOBENATE DIMEGLUMINE 529 MG/ML 10ML IV ONE (14:54)
[2019-01-10 16:00] VITALS: BP 136/92
[2019-01-10 20:00] VITALS: BP 135/78
[2019-01-10] MEDS ORDERED: TERAZOSIN HCL 1MG CAPSULE PO SCH (21:00)
[2019-01-10] MEDS ORDERED: TRAZODONE HCL 100MG TABLET PO SCH (21:00)
[2019-01-10] MEDS ORDERED: LATANOPROST 0.005% OPHTH DROPS 2.5ML LEFTEYE SCH (21:00)
[2019-01-10] MEDS: AMLODIPINE 5MG TABLET PO SCH (21:18)
[2019-01-10] MEDS: ENOXAPARIN 40MG/0.4ML SYR SUBCUT SCH (21:18)
[2019-01-11] VITALS: BP 117/64
[2019-01-11] MEDS: IPRATROPIUM/ALBUTEROL 0.5-3(2.5)MG/3ML NEB HHN SCH ×3 (02:13→12:00)
[2019-01-11] MEDS: METHYLPREDNISOLONE SOD SUCC 40 MG/ML VIAL IV SCH ×2 (03:27→09:05)
[2019-01-11 04:00] VITALS: BP 158/94
[2019-01-11] MEDS: GABAPENTIN 300MG CAPSULE PO SCH ×2 (05:58→13:25)
[2019-01-11] MEDS: BRIMONIDINE 0.2% OPHTH DROPS 5ML LEFTEYE SCH ×2 (05:58→13:25)
[2019-01-11] MEDS: DORZOLAMIDE 2% OPHTH 10 ML BOTTLE LEFTEYE SCH ×2 (05:58→13:25)
[2019-01-11] MEDS: HYDROCODONE/ACETAMINOPHEN 10/325MG TABLET PO PRN ×2 (06:01→06:10)
[2019-01-11 08:00] VITALS: BP 156/92
[2019-01-11] MEDS: CLOPIDOGREL 75MG TABLET PO SCH (08:56)
[2019-01-11] MEDS: AMLODIPINE 5MG TABLET PO SCH (08:57)
[2019-01-11] MEDS: ASPIRIN 81MG TABLET PO SCH (08:57)
[2019-01-11] MEDS: LISINOPRIL 20MG TABLET PO SCH (08:57)
[2019-01-11] MEDS: ISOSORBIDE MONONITRATE 30MG TABLET SR 24HR PO SCH (08:58)
[2019-01-11] MEDS: LACTULOSE 20G/30ML UDC PO SCH (08:59)
[2019-01-11] MEDS: ATENOLOL 50 MG TABLET PO SCH (09:05)
[2019-01-11] MEDS: HYDROCODONE/ACETAMINOPHEN 5/325MG TABLET PO PRN (09:05)
[2019-01-11 12:00] VITALS: BP 153/89
[2019-01-11 12:55] VITALS: BP 153/89
== END 2019-01-11 15:45 | disposition home or self-care (01) | DRG 140 ==
LOC: ER 08:26 → 8WST 12:12 → ENRESERV 14:13 → 8WST 17:07
PROVIDERS: ADMIT Internal Medicine; ATTEND Internal Medicine
DX: J44.1 Chronic obstructive pulmonary disease with (acute) exacerbation (principal); D70.9 Neutropenia, unspecified; I11.9 Hypertensive heart disease without heart failure; G62.9 Polyneuropathy, unspecified; I69.351 Hemiplegia and hemiparesis following cerebral infarction affecting right dominant side; R07.89 Other chest pain; I25.10 Atherosclerotic heart disease of native coronary artery without angina pectoris; E78.00 Pure hypercholesterolemia, unspecified; F17.210 Nicotine dependence, cigarettes, uncomplicated; G89.29 Other chronic pain; H26.9 Unspecified cataract; B19.20 Unspecified viral hepatitis C without hepatic coma; H40.9 Unspecified glaucoma; R74.0 Nonspecific elevation of levels of transaminase and lactic acid dehydrogenase [LDH]; I25.2 Old myocardial infarction; Z95.5 Presence of coronary angioplasty implant and graft; Z79.899 Other long term (current) drug therapy
CPT/HCPCS: 36415; 70543; 71045; 80061; 83036; 83735; 83880; 84439; 84443; 84481; 84484; 85007; 85027; 85379; 87070; 87430; 93005; 93971; 96374; 96375; 97162; 97165; 99291; A9577; J1650; J1885; J2920; J2930; J7611; J7620

== ENCOUNTER 2019-03-19 20:06 | Inpatient (IN) | payer MEDICAID, OTHER ==
[~2019-03-19] VITALS: Ht 170.2 cm; Wt 79.4 kg
[~2019-03-19 20:06] MED LIST changes: -ASPI-1159 PO; +ASPI-1393 PO; -LOSA100T14 PO; +LOSA100T32 PO; +TRAZ-213 PO
[2019-03-19] MEDS ORDERED: MORPHINE SULFATE 4 MG/ML CPJ (NOT FOR IM USE) IV STA (20:35)
[2019-03-19] MEDS ORDERED: ONDANSETRON HCL 4MG/2ML INJ IV STA (20:35)
[2019-03-19] MEDS ORDERED: ASPIRIN 81MG TABLET PO ONE (20:45)
[2019-03-19 21:05] LABS: BASOPHILS % 0.3 % (0.0-2.0); EOSINOPHILS % 0.9 % (0.0-5.0); HEMATOCRIT. 38.5 % (42.0-52.0); HEMOGLOBIN. 13.5 g/dL (14.0-18.0); LYMPHOCYTES % 46.4 % (20.0-50.0); MEAN CORPUSCULAR HEMOGLOBIN 32.6 pg (28.0-32.0); MEAN CORPUSCULAR VOLUME 92.8 fL (80.0-94.0); MEAN PLATELET VOLUME 8.5 fl (7.4-10.4); MONOCYTES % 10.2 % (2.0-8.0); NEUTROPHILS % 42.2 % (40.0-76.0); PLATELET 160 x1000/uL (130-400); RED BLOOD CELL COUNT 4.14 mill/uL (4.7-6.1)
[2019-03-19 21:11] LABS: CHLORIDE 107 mEq/L (98-107)
[2019-03-19 21:14] LABS: INR 1.1; PARTIAL THROMBOPLASTIN TIME 31.5 sec (23.4-31.0); PROTHROMBIN TIME 11.4 sec (9.6-11.0)
[2019-03-19 21:16] LABS: ETHANOL BLOOD < 10 mg/dL
[2019-03-19 21:40] LABS: CLARITY URINE CLEAR (CLEAR); COLOR URINE YELLOW (YELLOW); KETONES URINE NEGATIVE (NEGATIVE); LEUKOCYTE ESTERASE URINE NEGATIVE (NEGATIVE); NITRITE URINE NEGATIVE (NEGATIVE); OCCULT BLOOD URINE NEGATIVE (NEGATIVE); PROTEIN URINE NEGATIVE (NEGATIVE); SPECIFIC GRAVITY URINE 1.011 (1.005-1.030)
[2019-03-19 21:55] LABS: *AMPHETAMINES SCREEN URINE NEGATIVE (NEGATIVE); *BARBITURATES SCREEN URINE NEGATIVE (NEGATIVE); *BENZODIAZEPINES SCREEN URINE NEGATIVE (NEGATIVE); *COCAINE SCREEN URINE NEGATIVE (NEGATIVE); METHADONE URINE SCREEN NEGATIVE (NEGATIVE); OPIATES URINE SCREEN PRESUMTIVE POSITIVE (NEGATIVE)
[2019-03-19 21:57] LABS: CANNABINOID URINE SCREEN NEGATIVE (NEGATIVE); PHENCYCLIDINE URINE SCREEN NEGATIVE (NEGATIVE)
[2019-03-20] MEDS ORDERED: LORAZEPAM 2MG/ML CPJ IV ONE (01:30)
[2019-03-20 04:57] VITALS: BP 130/89
[2019-03-20] MEDS ORDERED: ONDANSETRON HCL 4MG/2ML INJ IV PRN (06:15)
[2019-03-20] MEDS ORDERED: ACETAMINOPHEN 325MG TABLET PO PRN (06:15)
[2019-03-20 08:00] VITALS: BP 135/91
[2019-03-20] MEDS ORDERED: POTASSIUM CHLORIDE 20MEQ TABLET SR PO NR (08:45)
[2019-03-20] MEDS: MORPHINE SULFATE 2 MG/ML CPJ (NOT FOR IM USE) IV PRN ×4 (08:53→21:38)
[2019-03-20 12:00] VITALS: BP 107/53
[2019-03-20 13:19] LABS: BASOPHILS % 0.2 % (0.0-2.0); HEMATOCRIT. 36.3 % (42.0-52.0); HEMOGLOBIN. 12.4 g/dL (14.0-18.0); MONOCYTES % 12.3 % (2.0-8.0); NEUTROPHILS % 47.5 % (40.0-76.0); PLATELET 139 x1000/uL (130-400); RED BLOOD CELL COUNT 3.86 mill/uL (4.7-6.1); RED CELL DISTRIBUTION WIDTH 15.2 % (11.6-14.6)
[2019-03-20 13:29] LABS: CHLORIDE 110 mEq/L (98-107)
[2019-03-20] MEDS: AMLODIPINE 2.5MG TABLET PO SCH (13:30)
[2019-03-20] MEDS: ENOXAPARIN 40MG/0.4ML SYR SUBCUT SCH (13:58)
[2019-03-20] MEDS: CLOPIDOGREL 75MG TABLET PO SCH (13:58)
[2019-03-20 14:00] VITALS: BP 132/80
[2019-03-20] MEDS: NITROGLYCERIN OINT 1GM/INCH UDPKT TD SCH ×2 (14:00→17:41)
[2019-03-20 16:00] VITALS: BP 132/80
[2019-03-20 16:18] LABS: CREATINE KINASE 98 IU/L (39-308)
[2019-03-20 16:19] LABS: CREATINE KINASE MB FRACTION < 1.0 ng/mL (0.5-3.6)
[2019-03-20] MEDS: ATORVASTATIN CALCIUM 10MG TABLET PO SCH (21:37)
[2019-03-20] MEDS ORDERED: METHYLPREDNISOLONE SOD SUCC 125 MG/2 ML VIAL IV NR (23:00)
[2019-03-20 23:44] LABS: CREATINE KINASE 88 IU/L (39-308)
[2019-03-20 23:45] LABS: CREATINE KINASE MB FRACTION < 1.0 ng/mL (0.5-3.6)
[2019-03-21] MEDS: NITROGLYCERIN OINT 1GM/INCH UDPKT TD SCH ×4 (00:27→18:56)
[2019-03-21 00:30] VITALS: BP 144/84
[2019-03-21] MEDS: IPRATROPIUM/ALBUTEROL 0.5-3(2.5)MG/3ML NEB HHN SCH ×4 (00:45→22:02)
[2019-03-21] MEDS: MORPHINE SULFATE 2 MG/ML CPJ (NOT FOR IM USE) IV PRN ×3 (05:47→13:40)
[2019-03-21] MEDS: METHYLPREDNISOLONE SOD SUCC 40 MG/ML VIAL IV SCH ×3 (05:48→20:34)
[2019-03-21 06:58] LABS: BASOPHILS % 0.7 % (0.0-2.0); EOSINOPHILS % 0.5 % (0.0-5.0); HEMATOCRIT. 37.9 % (42.0-52.0); HEMOGLOBIN. 13.1 g/dL (14.0-18.0); LYMPHOCYTES % 24.7 % (20.0-50.0); MEAN CORPUSCULAR HEMOGLOBIN 32.3 pg (28.0-32.0); MEAN CORPUSCULAR VOLUME 93.3 fL (80.0-94.0); MEAN PLATELET VOLUME 9.2 fl (7.4-10.4); MONOCYTES % 4.4 % (2.0-8.0); NEUTROPHILS % 69.7 % (40.0-76.0); PLATELET 161 x1000/uL (130-400); RED BLOOD CELL COUNT 4.07 mill/uL (4.7-6.1); RED CELL DISTRIBUTION WIDTH 14.9 % (11.6-14.6)
[2019-03-21 08:00] VITALS: BP 155/98
[2019-03-21 08:13] LABS: CHLORIDE 106 mEq/L (98-107)
[2019-03-21 08:26] LABS: CREATINE KINASE 82 IU/L (39-308); CREATINE KINASE MB FRACTION < 1.0 ng/mL (0.5-3.6)
[2019-03-21] MEDS: CLOPIDOGREL 75MG TABLET PO SCH (08:58)
[2019-03-21] MEDS: AMLODIPINE 2.5MG TABLET PO SCH (08:59)
[2019-03-21] MEDS ORDERED: DOCUSATE SODIUM 100MG CAPSULE PO PRN (09:30)
[2019-03-21 12:00] VITALS: BP 136/106
[2019-03-21] MEDS: BRIMONIDINE 0.2% OPHTH DROPS 5ML LEFTEYE SCH ×2 (12:46→18:58)
[2019-03-21] MEDS: DORZOLAMIDE 2% OPHTH 10 ML BOTTLE LEFTEYE SCH ×2 (12:47→18:58)
[2019-03-21] MEDS ORDERED: MEDICATION NOT ON FORMULARY EA (Brimonidine Tartrate 1 DROP) LEFTEYE SCH (13:00)
[2019-03-21] MEDS: ENOXAPARIN 40MG/0.4ML SYR SUBCUT SCH (13:40)
[2019-03-21] MEDS: FOLIC ACID 1MG TABLET PO SCH (18:57)
[2019-03-21] MEDS: THIAMINE HCL 100MG TABLET PO SCH (18:57)
[2019-03-21] MEDS: MULTIVITAMINS,THER W-MINERALS TABLET PO SCH (18:57)
[2019-03-21 20:00] VITALS: BP 131/86
[2019-03-21] MEDS: ATORVASTATIN CALCIUM 10MG TABLET PO SCH (20:19)
[2019-03-21] MEDS ORDERED: LATANOPROST 0.005% OPHTH DROPS 2.5ML LEFTEYE SCH (21:00)
[2019-03-21] MEDS ORDERED: ERYTHROMYCIN BASE 0.5% OPHTH OINT 3.5GM EACHEYE SCH (21:00)
[2019-03-21] MEDS ORDERED: ERYTHROMYCIN BASE EACHEYE SCH (21:00)
[2019-03-22] VITALS: BP 157/94
[2019-03-22] MEDS: NITROGLYCERIN OINT 1GM/INCH UDPKT TD SCH ×2 (00:59→05:52)
[2019-03-22] MEDS: IPRATROPIUM/ALBUTEROL 0.5-3(2.5)MG/3ML NEB HHN SCH ×4 (01:11→12:14)
[2019-03-22] MEDS: MORPHINE SULFATE 2 MG/ML CPJ (NOT FOR IM USE) IV PRN ×2 (01:56→10:01)
[2019-03-22 04:00] VITALS: BP 128/72
[2019-03-22] MEDS: METHYLPREDNISOLONE SOD SUCC 40 MG/ML VIAL IV SCH (05:52)
[2019-03-22 06:17] LABS: HEMATOCRIT. 38.4 % (42.0-52.0); MEAN CORPUSCULAR HEMOGLOBIN 31.8 pg (28.0-32.0); MEAN CORPUSCULAR VOLUME 93.8 fL (80.0-94.0); PLATELET 174 x1000/uL (130-400); RED CELL DISTRIBUTION WIDTH 15.2 % (11.6-14.6)
[2019-03-22 06:40] LABS: CHLORIDE 105 mEq/L (98-107)
[2019-03-22 08:00] VITALS: BP 140/73
[2019-03-22] MEDS: FOLIC ACID 1MG TABLET PO SCH (09:51)
[2019-03-22] MEDS: MULTIVITAMINS,THER W-MINERALS TABLET PO SCH (09:51)
[2019-03-22] MEDS: CLOPIDOGREL 75MG TABLET PO SCH (09:51)
[2019-03-22] MEDS: THIAMINE HCL 100MG TABLET PO SCH (09:51)
[2019-03-22] MEDS: AMLODIPINE 2.5MG TABLET PO SCH (09:52)
[2019-03-22] MEDS: BRIMONIDINE 0.2% OPHTH DROPS 5ML LEFTEYE SCH (09:52)
[2019-03-22] MEDS: DORZOLAMIDE 2% OPHTH 10 ML BOTTLE LEFTEYE SCH (09:52)
[2019-03-22 11:48] VITALS: BP 140/73
[2019-03-22 17:45] LABS: PLATELET ESTIMATE NORMAL
== END 2019-03-22 12:43 | disposition home or self-care (01) | DRG 812 ==
LOC: ER 20:06 → 7WST 23:22 → EDBEDREQ 23:29 → EDBEDREQTM 23:29 → ENRESERV 03-20 02:15
PROVIDERS: ADMIT Internal Medicine; ATTEND Internal Medicine
DX: T43.641A Poisoning by ecstasy, accidental (unintentional), initial encounter (principal); I11.0 Hypertensive heart disease with heart failure; G62.9 Polyneuropathy, unspecified; I69.351 Hemiplegia and hemiparesis following cerebral infarction affecting right dominant side; M48.02 Spinal stenosis, cervical region; I50.9 Heart failure, unspecified; J44.1 Chronic obstructive pulmonary disease with (acute) exacerbation; R07.89 Other chest pain; I25.10 Atherosclerotic heart disease of native coronary artery without angina pectoris; I25.2 Old myocardial infarction; E78.5 Hyperlipidemia, unspecified; B18.2 Chronic viral hepatitis C; E78.00 Pure hypercholesterolemia, unspecified; F17.210 Nicotine dependence, cigarettes, uncomplicated; H40.9 Unspecified glaucoma; G89.29 Other chronic pain; R26.9 Unspecified abnormalities of gait and mobility; B19.20 Unspecified viral hepatitis C without hepatic coma; M25.78 Osteophyte, vertebrae; M47.9 Spondylosis, unspecified; Z79.02 Long term (current) use of antithrombotics/antiplatelets; Z79.82 Long term (current) use of aspirin; Z95.5 Presence of coronary angioplasty implant and graft; Z82.49 Family history of ischemic heart disease and other diseases of the circulatory system; Z86.711 Personal history of pulmonary embolism; I69.322 Dysarthria following cerebral infarction; Z79.899 Other long term (current) drug therapy; Y92.89 Other specified places as the place of occurrence of the external cause
CPT/HCPCS: 36415; 70544; 70553; 71045; 72141; 80048; 80305; 80320; 82550; 82553; 83880; 84484; 93005; 93306; 93880; 94640; 96374; 96375; 97162; 99285; J1650; J2060; J2270; J2405; J2920; J2930; J7620; G0480

== ENCOUNTER 2019-04-29 10:46 | Emergency (ER) | payer MEDICAID ==
[~2019-04-29] VITALS: Ht 170.2 cm; Wt 78.0 kg
[2019-04-29] MEDS ORDERED: PREDNISONE 20MG TABLET PO STA (14:33)
[2019-04-29] MEDS ORDERED: IPRATROPIUM BROMIDE (0.02%) 0.5MG/2.5ML NEB HHN STA (14:33)
[2019-04-29] MEDS ORDERED: ALBUTEROL (0.083%) 2.5MG/3ML NEB HHN STA (14:33)
[2019-04-29] MEDS ORDERED: KETOROLAC 15MG/ML VIAL IM ONE (15:45)
[2019-04-29 16:20] VITALS: BP 148/79
== END 2019-04-29 16:22 | disposition home or self-care (01) ==
LOC: ER 13:30
DX: J44.9 Chronic obstructive pulmonary disease, unspecified (principal); G89.29 Other chronic pain; M54.41 Lumbago with sciatica, right side; E78.00 Pure hypercholesterolemia, unspecified; I10 Essential (primary) hypertension; I11.0 Hypertensive heart disease with heart failure; I50.9 Heart failure, unspecified; I11.9 Hypertensive heart disease without heart failure; F17.200 Nicotine dependence, unspecified, uncomplicated; E78.5 Hyperlipidemia, unspecified; I25.10 Atherosclerotic heart disease of native coronary artery without angina pectoris; Z79.899 Other long term (current) drug therapy
CPT/HCPCS: 71045; 94644; 96372; 99285; J1885; J7512; J7611

== ENCOUNTER 2019-07-13 07:17 | Inpatient (IN) | payer MEDICAID ==
[~2019-07-13] VITALS: Ht 170.2 cm; Wt 116.6 kg
[2019-07-13] MEDS ORDERED: ALBUTEROL (0.083%) 2.5MG/3ML NEB HHN STA (08:19)
[2019-07-13] MEDS ORDERED: IPRATROPIUM BROMIDE (0.02%) 0.5MG/2.5ML NEB HHN STA (08:19)
[2019-07-13] MEDS ORDERED: METHYLPREDNISOLONE SOD SUCC 125 MG/2 ML VIAL IV ONE (08:30)
[2019-07-13 09:30] LABS: BASOPHILS % 0.3 % (0.0-2.0); EOSINOPHILS % 0.8 % (0.0-5.0); HEMOGLOBIN. 14.6 g/dL (14.0-18.0); MEAN CORPUSCULAR HEMOGLOBIN 31.7 pg (28.0-32.0); MEAN CORPUSCULAR VOLUME 93.1 fL (80.0-94.0); MEAN PLATELET VOLUME 9.2 fl (7.4-10.4); MONOCYTES % 13.2 % (2.0-8.0); NEUTROPHILS % 43.7 % (40.0-76.0); PLATELET 176 x1000/uL (130-400); RED BLOOD CELL COUNT 4.62 mill/uL (4.7-6.1); RED CELL DISTRIBUTION WIDTH 14.8 % (11.6-14.6)
[2019-07-13 09:37] LABS: CHLORIDE 108 mEq/L (98-107)
[2019-07-13] MEDS ORDERED: MORPHINE SULFATE 4 MG/ML CPJ (NOT FOR IM USE) IV STA (09:56)
[2019-07-13] MEDS ORDERED: ONDANSETRON HCL 4MG/2ML INJ IV STA (09:56)
[2019-07-13] MEDS ORDERED: ASPIRIN 81MG TABLET PO ONE (10:00)
[2019-07-13] MEDS ORDERED: NITROGLYCERIN 0.4MG TABLET SL SL PRN (10:00)
[2019-07-13] MEDS ORDERED: POTASSIUM CHLORIDE 20MEQ TABLET SR PO ONE (10:30)
[2019-07-13] MEDS ORDERED: CLONIDINE 0.1MG TABLET PO PRN (11:15)
[2019-07-13] MEDS ORDERED: DIPHENHYDRAMINE 50MG/ML VIAL IV PRN (11:15)
[2019-07-13] MEDS ORDERED: GUAIFENESIN 200MG/10ML SUGAR FREE UDC PO PRN (11:15)
[2019-07-13] MEDS ORDERED: DOCUSATE SODIUM 100MG CAPSULE PO PRN (11:15)
[2019-07-13] MEDS ORDERED: ACETAMINOPHEN 325MG TABLET PO PRN (11:15)
[2019-07-13] MEDS ORDERED: IPRATROPIUM/ALBUTEROL 0.5-3(2.5)MG/3ML NEB HHN PRN (11:15)
[2019-07-13] MEDS ORDERED: MAGNESIUM/ALUMINUM HYDROXIDE/SIMETHICONE 30ML UDC PO PRN (11:15)
[2019-07-13] MEDS ORDERED: ONDANSETRON HCL 4MG/2ML INJ IV PRN (11:15)
[2019-07-13 12:40] VITALS: BP 126/80
[2019-07-13] MEDS: HYDROCODONE/ACETAMINOPHEN 5/325MG TABLET PO PRN ×2 (13:45→18:31)
[2019-07-13] MEDS: CLOPIDOGREL 75MG TABLET PO SCH (15:10)
[2019-07-13 16:00] VITALS: BP 130/74
[2019-07-13 17:00] LABS: *AMPHETAMINES SCREEN URINE NEGATIVE (NEGATIVE)
[2019-07-13 17:02] LABS: *BARBITURATES SCREEN URINE NEGATIVE (NEGATIVE); *BENZODIAZEPINES SCREEN URINE NEGATIVE (NEGATIVE); *COCAINE SCREEN URINE NEGATIVE (NEGATIVE); CANNABINOID URINE SCREEN NEGATIVE (NEGATIVE); METHADONE URINE SCREEN NEGATIVE (NEGATIVE); OPIATES URINE SCREEN PRESUMTIVE POSITIVE (NEGATIVE); PHENCYCLIDINE URINE SCREEN NEGATIVE (NEGATIVE)
[2019-07-13 17:41] LABS: PHOSPHORUS 2.5 mg/dL (2.5-4.9)
[2019-07-13] MEDS: NITROGLYCERIN OINT 1GM/INCH UDPKT TD SCH ×2 (18:30→21:43)
[2019-07-13] MEDS: LOSARTAN POTASSIUM 25 MG TABLET PO SCH (18:30)
[2019-07-13] MEDS: AMLODIPINE 5MG TABLET PO SCH (18:31)
[2019-07-13] MEDS ORDERED: MAGNESIUM 2 G PREMIX 50 ML IV NR (19:00)
[2019-07-13 20:00] VITALS: BP 144/76
[2019-07-13 20:50] LABS: FOLIC ACID (FOLATE) SERUM 17.4 ng/mL (>5.38)
[2019-07-13] MEDS: TRAZODONE HCL 50MG TABLET PO PRN (21:42)
[2019-07-13] MEDS: ENOXAPARIN 40MG/0.4ML SYR SUBCUT SCH (21:42)
[2019-07-13] MEDS: DORZOLAM/TIMOLOL 2.23/0.68% OPHTH DROPS 10ML LEFTEYE SCH (21:43)
[2019-07-13] MEDS: ERYTHROMYCIN BASE 0.5% OPHTH OINT 3.5GM LEFTEYE SCH ×2 (21:43→22:00)
[2019-07-13] MEDS: RANOLAZINE 500 MG TAB.SR.12H PO SCH (21:43)
[2019-07-13] MEDS: BRIMONIDINE 0.2% OPHTH DROPS 5ML LEFTEYE SCH (21:43)
[2019-07-13] MEDS: MORPHINE SULFATE 2 MG/ML CPJ (NOT FOR IM USE) IV PRN (21:52)
[2019-07-14] VITALS: BP 144/91
[2019-07-14 04:00] VITALS: BP 138/75
[2019-07-14] MEDS: MORPHINE SULFATE 2 MG/ML CPJ (NOT FOR IM USE) IV PRN ×4 (04:09→23:00)
[2019-07-14] MEDS: BRIMONIDINE 0.2% OPHTH DROPS 5ML LEFTEYE SCH ×3 (05:17→23:01)
[2019-07-14] MEDS: NITROGLYCERIN OINT 1GM/INCH UDPKT TD SCH ×4 (05:18→23:02)
[2019-07-14] MEDS: ERYTHROMYCIN BASE 0.5% OPHTH OINT 3.5GM LEFTEYE SCH ×3 (05:23→22:00)
[2019-07-14 07:21] LABS: HEMATOCRIT. 37.7 % (42.0-52.0); HEMOGLOBIN. 13.1 g/dL (14.0-18.0); LYMPHOCYTES % 8.2 % (20.0-50.0); MEAN CORPUSCULAR HEMOGLOBIN 32.2 pg (28.0-32.0); MEAN CORPUSCULAR VOLUME 92.5 fL (80.0-94.0); MONOCYTES % 8.2 % (2.0-8.0); NEUTROPHILS % 83.6 % (40.0-76.0); PLATELET 168 x1000/uL (130-400); RED BLOOD CELL COUNT 4.07 mill/uL (4.7-6.1)
[2019-07-14 07:26] LABS: CHLORIDE 111 mEq/L (98-107)
[2019-07-14 07:35] LABS: CREATINE KINASE 79 IU/L (39-308); HDL CHOLESTEROL 61 mg/dL (40-59)
[2019-07-14 07:36] LABS: LDL CHOLESTEROL 34 mg/dL (5-100)
[2019-07-14 07:59] VITALS: BP 139/75
[2019-07-14] MEDS: RANOLAZINE 500 MG TAB.SR.12H PO SCH ×2 (10:14→23:01)
[2019-07-14] MEDS: CLOPIDOGREL 75MG TABLET PO SCH (10:14)
[2019-07-14] MEDS: AMLODIPINE 5MG TABLET PO SCH ×2 (10:14→16:31)
[2019-07-14] MEDS: ASPIRIN 81MG EC TABLET PO SCH (10:14)
[2019-07-14] MEDS: LOSARTAN POTASSIUM 25 MG TABLET PO SCH ×2 (10:14→16:30)
[2019-07-14] MEDS: DORZOLAM/TIMOLOL 2.23/0.68% OPHTH DROPS 10ML LEFTEYE SCH ×2 (10:16→23:00)
[2019-07-14 11:41] VITALS: BP 138/85
[2019-07-14] MEDS ORDERED: IPRATROPIUM/ALBUTEROL 0.5-3(2.5)MG/3ML NEB HHN PRN (15:30)
[2019-07-14 16:00] VITALS: BP 129/77
[2019-07-14] MEDS: AZITHROMYCIN 500 MG TABLET PO SCH (16:30)
[2019-07-14] MEDS: METHYLPREDNISOLONE SOD SUCC 40 MG/ML VIAL IV SCH ×2 (16:31→23:02)
[2019-07-14 16:54] LABS: BG CARBOXYHEMOGLOBIN 0.5 % (0.5-1.5); BG DEOXYHEMOGLOBIN 5.5 % (0.0-5.0); BG FRACTION INSPIRED OXYGEN 21; BG HCO3 ACT 27.3 mmol/L (22.0-26.0); BG METHEMOGLOBIN 0.5 % (0.0-1.5); BG OXYGEN SATURATION 94.4 % (92.0-98.5); BG OXYHEMOGLOBIN 93.5 % (94.0-97.0); BG PCO2 40.3 mmHg (35.0-45.0); BG PH 7.448 (7.350-7.450); BG PO2 69.6 mmHg (75.0-100.0); BG SAMPLE SITE LEFT RADIAL; BG TOTAL HEMOGLOBIN 13.7 g/dL (12.0-18.0); BG VENT MODE ROOM AIR
[2019-07-14] MEDS: IPRATROPIUM/ALBUTEROL 0.5-3(2.5)MG/3ML NEB HHN SCH ×3 (17:08→23:52)
[2019-07-14 17:57] LABS: T4 FREE 1.22 ng/dL (0.76-1.46)
[2019-07-14 20:00] VITALS: BP 132/79
[2019-07-14] MEDS: ENOXAPARIN 40MG/0.4ML SYR SUBCUT SCH (23:01)
[2019-07-14] MEDS: GABAPENTIN 100MG CAPSULE PO SCH (23:02)
[2019-07-14] MEDS: TRAZODONE HCL 50MG TABLET PO PRN (23:14)
[2019-07-15] VITALS: BP 135/83
[2019-07-15] MEDS ORDERED: DEXTROSE 50% WATER 50ML SYRINGE IV PRN (01:45)
[2019-07-15 04:00] VITALS: BP 143/81
[2019-07-15] MEDS: IPRATROPIUM/ALBUTEROL 0.5-3(2.5)MG/3ML NEB HHN SCH ×5 (04:55→20:20)
[2019-07-15] MEDS: BLOOD SUGAR DIAGNOSTIC STRIP TEST SCH ×4 (05:18→21:19)
[2019-07-15] MEDS: ERYTHROMYCIN BASE 0.5% OPHTH OINT 3.5GM LEFTEYE SCH ×3 (05:18→21:21)
[2019-07-15] MEDS: NITROGLYCERIN OINT 1GM/INCH UDPKT TD SCH ×4 (05:19→23:44)
[2019-07-15] MEDS: GABAPENTIN 100MG CAPSULE PO SCH ×3 (05:19→21:18)
[2019-07-15] MEDS: BRIMONIDINE 0.2% OPHTH DROPS 5ML LEFTEYE SCH ×3 (05:19→21:20)
[2019-07-15] MEDS: MORPHINE SULFATE 2 MG/ML CPJ (NOT FOR IM USE) IV PRN ×3 (05:33→22:21)
[2019-07-15] MEDS: INSULIN LISPRO 100 UNITS/ML SUBCUT SCH ×4 (06:42→21:00)
[2019-07-15 07:20] LABS: CHLORIDE 110 mEq/L (98-107)
[2019-07-15 07:21] LABS: BASOPHILS % 0.1 % (0.0-2.0); HEMOGLOBIN. 13.6 g/dL (14.0-18.0); LYMPHOCYTES % 9.9 % (20.0-50.0); MEAN CORPUSCULAR HEMOGLOBIN 31.6 pg (28.0-32.0); MEAN PLATELET VOLUME 8.4 fl (7.4-10.4); MONOCYTES % 2.7 % (2.0-8.0); NEUTROPHILS % 87.3 % (40.0-76.0); PLATELET 165 x1000/uL (130-400); RED CELL DISTRIBUTION WIDTH 15.2 % (11.6-14.6)
[2019-07-15 08:00] VITALS: BP 136/72
[2019-07-15] MEDS: CLOPIDOGREL 75MG TABLET PO SCH (09:31)
[2019-07-15] MEDS: ASPIRIN 81MG EC TABLET PO SCH (09:31)
[2019-07-15] MEDS: AMLODIPINE 5MG TABLET PO SCH ×2 (09:31→17:57)
[2019-07-15] MEDS: AZITHROMYCIN 500 MG TABLET PO SCH (09:31)
[2019-07-15] MEDS: DORZOLAM/TIMOLOL 2.23/0.68% OPHTH DROPS 10ML LEFTEYE SCH ×2 (09:32→21:20)
[2019-07-15] MEDS: METHYLPREDNISOLONE SOD SUCC 40 MG/ML VIAL IV SCH ×3 (09:40→23:39)
[2019-07-15] MEDS: RANOLAZINE 500 MG TAB.SR.12H PO SCH ×2 (09:41→21:18)
[2019-07-15] MEDS: LOSARTAN POTASSIUM 25 MG TABLET PO SCH ×2 (09:41→17:57)
[2019-07-15] MEDS: HYDROCODONE/ACETAMINOPHEN 5/325MG TABLET PO PRN (09:43)
[2019-07-15] MEDS: NICOTINE 14MG PATCH TD SCH (14:13)
[2019-07-15 16:00] VITALS: BP 134/80
[2019-07-15 20:00] VITALS: BP 144/60
[2019-07-15] MEDS: ENOXAPARIN 40MG/0.4ML SYR SUBCUT SCH (21:19)
[2019-07-15] MEDS: TRAZODONE HCL 50MG TABLET PO PRN (22:20)
[2019-07-16] VITALS: BP 140/86
[2019-07-16] MEDS: IPRATROPIUM/ALBUTEROL 0.5-3(2.5)MG/3ML NEB HHN SCH ×3 (00:16→20:29)
[2019-07-16 04:00] VITALS: BP 155/90
[2019-07-16] MEDS: GABAPENTIN 100MG CAPSULE PO SCH ×3 (05:03→22:11)
[2019-07-16] MEDS: BRIMONIDINE 0.2% OPHTH DROPS 5ML LEFTEYE SCH ×3 (05:04→22:12)
[2019-07-16] MEDS: MORPHINE SULFATE 2 MG/ML CPJ (NOT FOR IM USE) IV PRN ×3 (05:05→22:16)
[2019-07-16] MEDS: NITROGLYCERIN OINT 1GM/INCH UDPKT TD SCH ×3 (05:09→17:13)
[2019-07-16] MEDS: ERYTHROMYCIN BASE 0.5% OPHTH OINT 3.5GM LEFTEYE SCH ×3 (06:00→22:00)
[2019-07-16 06:18] LABS: HEMATOCRIT. 39.5 % (42.0-52.0); HEMOGLOBIN. 13.8 g/dL (14.0-18.0); MEAN CORPUSCULAR HEMOGLOBIN 32.3 pg (28.0-32.0); MEAN CORPUSCULAR VOLUME 92.8 fL (80.0-94.0); MEAN PLATELET VOLUME 9.3 fl (7.4-10.4); PLATELET 169 x1000/uL (130-400); RED BLOOD CELL COUNT 4.26 mill/uL (4.7-6.1); RED CELL DISTRIBUTION WIDTH 14.7 % (11.6-14.6)
[2019-07-16 06:19] LABS: CHLORIDE 109 mEq/L (98-107)
[2019-07-16] MEDS: INSULIN LISPRO 100 UNITS/ML SUBCUT SCH ×4 (06:53→21:00)
[2019-07-16] MEDS: BLOOD SUGAR DIAGNOSTIC STRIP TEST SCH ×4 (06:53→21:00)
[2019-07-16 08:00] VITALS: BP 158/105
[2019-07-16] MEDS ORDERED: REGADENOSON 0.4 MG/5 ML IV ONE (08:05)
[2019-07-16] MEDS: DORZOLAM/TIMOLOL 2.23/0.68% OPHTH DROPS 10ML LEFTEYE SCH ×2 (09:04→22:11)
[2019-07-16] MEDS: NICOTINE 14MG PATCH TD SCH (09:04)
[2019-07-16] MEDS: CLOPIDOGREL 75MG TABLET PO SCH (09:05)
[2019-07-16] MEDS: AZITHROMYCIN 500 MG TABLET PO SCH (09:05)
[2019-07-16] MEDS: ASPIRIN 81MG EC TABLET PO SCH (09:05)
[2019-07-16] MEDS: RANOLAZINE 500 MG TAB.SR.12H PO SCH ×2 (09:05→22:13)
[2019-07-16] MEDS: LOSARTAN POTASSIUM 25 MG TABLET PO SCH ×2 (09:05→17:13)
[2019-07-16] MEDS: METHYLPREDNISOLONE SOD SUCC 40 MG/ML VIAL IV SCH ×2 (09:05→17:13)
[2019-07-16] MEDS: AMLODIPINE 5MG TABLET PO SCH ×2 (09:06→17:13)
[2019-07-16 09:49] LABS: PLATELET ESTIMATE NORMAL
[2019-07-16 12:00] VITALS: BP 153/81
[2019-07-16 16:00] VITALS: BP 150/81
[2019-07-16 20:00] VITALS: BP 155/100
[2019-07-16] MEDS: BUDESONIDE 0.5MG/2ML NEB HHN SCH (20:29)
[2019-07-16] MEDS: GUAIFENESIN 600MG ER TABLET PO SCH (22:11)
[2019-07-16] MEDS: ENOXAPARIN 40MG/0.4ML SYR SUBCUT SCH (22:12)
[2019-07-16] MEDS: TRAZODONE HCL 50MG TABLET PO PRN (22:23)
[2019-07-17] VITALS: BP 102/63
[2019-07-17] MEDS: METHYLPREDNISOLONE SOD SUCC 40 MG/ML VIAL IV SCH ×3 (00:21→15:00)
[2019-07-17] MEDS: IPRATROPIUM/ALBUTEROL 0.5-3(2.5)MG/3ML NEB HHN SCH ×6 (00:53→20:37)
[2019-07-17 04:30] VITALS: BP_SYST 102; BP_SYST 103; BP_DIAS 66; BP_DIAS 76
[2019-07-17] MEDS: MORPHINE SULFATE 2 MG/ML CPJ (NOT FOR IM USE) IV PRN ×3 (04:59→17:46)
[2019-07-17] MEDS: ERYTHROMYCIN BASE 0.5% OPHTH OINT 3.5GM LEFTEYE SCH ×3 (05:06→22:00)
[2019-07-17] MEDS: BLOOD SUGAR DIAGNOSTIC STRIP TEST SCH ×4 (05:36→20:21)
[2019-07-17] MEDS: NITROGLYCERIN OINT 1GM/INCH UDPKT TD SCH ×3 (05:38→17:33)
[2019-07-17] MEDS: GABAPENTIN 100MG CAPSULE PO SCH ×3 (05:40→22:02)
[2019-07-17] MEDS: INSULIN LISPRO 100 UNITS/ML SUBCUT SCH ×4 (05:43→22:08)
[2019-07-17 06:20] LABS: HEMATOCRIT. 38.6 % (42.0-52.0); HEMOGLOBIN. 13.4 g/dL (14.0-18.0); MEAN CORPUSCULAR HEMOGLOBIN 31.9 pg (28.0-32.0); MEAN CORPUSCULAR VOLUME 92.1 fL (80.0-94.0); MEAN PLATELET VOLUME 9.3 fl (7.4-10.4); PLATELET 165 x1000/uL (130-400); RED BLOOD CELL COUNT 4.19 mill/uL (4.7-6.1); RED CELL DISTRIBUTION WIDTH 15.2 % (11.6-14.6)
[2019-07-17 06:34] LABS: CHLORIDE 107 mEq/L (98-107)
[2019-07-17 08:00] VITALS: BP 146/93
[2019-07-17] MEDS ORDERED: GUAI-793 MT (08:43)
[2019-07-17] MEDS ORDERED: AMLO5TAB88 PO (08:43)
[2019-07-17] MEDS ORDERED: AZIT500T5 PO (08:43)
[2019-07-17] MEDS ORDERED: NICO-645 TP (08:43)
[2019-07-17] MEDS ORDERED: LOSA25TA3 PO (08:43)
[2019-07-17] MEDS ORDERED: P20 MT (08:43)
[2019-07-17] MEDS ORDERED: FLUT1DIS2 INH (08:56)
[2019-07-17] MEDS ORDERED: ALBU18HF2 IH (08:56)
[2019-07-17] MEDS: GUAIFENESIN 600MG ER TABLET PO SCH ×2 (09:03→22:02)
[2019-07-17] MEDS: ASPIRIN 81MG EC TABLET PO SCH (09:03)
[2019-07-17] MEDS: AZITHROMYCIN 500 MG TABLET PO SCH (09:03)
[2019-07-17] MEDS: RANOLAZINE 500 MG TAB.SR.12H PO SCH ×2 (09:03→22:02)
[2019-07-17] MEDS: AMLODIPINE 5MG TABLET PO SCH ×2 (09:04→17:00)
[2019-07-17] MEDS: NICOTINE 14MG PATCH TD SCH (09:04)
[2019-07-17] MEDS: LOSARTAN POTASSIUM 25 MG TABLET PO SCH ×2 (09:04→17:00)
[2019-07-17] MEDS: CLOPIDOGREL 75MG TABLET PO SCH (09:04)
[2019-07-17] MEDS: BRIMONIDINE 0.2% OPHTH DROPS 5ML LEFTEYE SCH ×3 (09:05→22:01)
[2019-07-17] MEDS: DORZOLAM/TIMOLOL 2.23/0.68% OPHTH DROPS 10ML LEFTEYE SCH ×2 (09:05→22:01)
[2019-07-17 12:00] VITALS: BP 135/90
[2019-07-17] MEDS: BUDESONIDE 0.5MG/2ML NEB HHN SCH ×2 (12:18→20:36)
[2019-07-17 13:44] LABS: PLATELET ESTIMATE NORMAL
[2019-07-17] MEDS ORDERED: TERBUTALINE SULFATE 1MG/ML VIAL SUBCUT NR (15:00)
[2019-07-17 16:00] VITALS: BP 125/82
[2019-07-17 20:00] VITALS: BP 140/85
[2019-07-17] MEDS: ENOXAPARIN 40MG/0.4ML SYR SUBCUT SCH (22:02)
[2019-07-17] MEDS: TRAZODONE HCL 50MG TABLET PO PRN (22:17)
[2019-07-18] VITALS: BP 133/79
[2019-07-18] MEDS: ERYTHROMYCIN BASE 0.5% OPHTH OINT 3.5GM LEFTEYE SCH ×3 (00:34→18:25)
[2019-07-18] MEDS: METHYLPREDNISOLONE SOD SUCC 40 MG/ML VIAL IV SCH ×3 (00:40→18:24)
[2019-07-18] MEDS: MORPHINE SULFATE 2 MG/ML CPJ (NOT FOR IM USE) IV PRN ×3 (00:52→22:42)
[2019-07-18] MEDS: NITROGLYCERIN OINT 1GM/INCH UDPKT TD SCH ×4 (00:56→18:25)
[2019-07-18] MEDS: IPRATROPIUM/ALBUTEROL 0.5-3(2.5)MG/3ML NEB HHN SCH ×6 (01:01→22:00)
[2019-07-18 04:30] VITALS: BP 150/92
[2019-07-18] MEDS: BLOOD SUGAR DIAGNOSTIC STRIP TEST SCH ×4 (05:21→21:26)
[2019-07-18] MEDS: GABAPENTIN 100MG CAPSULE PO SCH ×3 (05:26→21:43)
[2019-07-18] MEDS: BRIMONIDINE 0.2% OPHTH DROPS 5ML LEFTEYE SCH ×2 (05:27→18:25)
[2019-07-18 05:38] LABS: CHLORIDE 109 mEq/L (98-107)
[2019-07-18] MEDS: INSULIN LISPRO 100 UNITS/ML SUBCUT SCH ×4 (05:43→21:00)
[2019-07-18 06:14] LABS: HEMATOCRIT. 39.1 % (42.0-52.0); HEMOGLOBIN. 13.3 g/dL (14.0-18.0); MEAN CORPUSCULAR HEMOGLOBIN 31.6 pg (28.0-32.0); MEAN PLATELET VOLUME 9.4 fl (7.4-10.4); PLATELET 165 x1000/uL (130-400); RED BLOOD CELL COUNT 4.21 mill/uL (4.7-6.1)
[2019-07-18 07:33] LABS: PLATELET ESTIMATE NORMAL
[2019-07-18] MEDS: BUDESONIDE 0.5MG/2ML NEB HHN SCH (07:42)
[2019-07-18 08:00] VITALS: BP 153/94
[2019-07-18] MEDS: HYDROCODONE/ACETAMINOPHEN 5/325MG TABLET PO PRN (08:25)
[2019-07-18] MEDS: NICOTINE 14MG PATCH TD SCH (10:40)
[2019-07-18] MEDS: ASPIRIN 81MG EC TABLET PO SCH (10:40)
[2019-07-18] MEDS: AZITHROMYCIN 500 MG TABLET PO SCH (10:45)
[2019-07-18] MEDS: CLOPIDOGREL 75MG TABLET PO SCH (10:45)
[2019-07-18] MEDS: AMLODIPINE 5MG TABLET PO SCH ×2 (10:50→18:26)
[2019-07-18] MEDS: LOSARTAN POTASSIUM 25 MG TABLET PO SCH ×2 (10:51→18:24)
[2019-07-18 12:00] VITALS: BP 148/77
[2019-07-18] MEDS: GUAIFENESIN 600MG ER TABLET PO SCH ×2 (13:25→21:43)
[2019-07-18] MEDS: RANOLAZINE 500 MG TAB.SR.12H PO SCH ×2 (13:25→21:55)
[2019-07-18 16:00] VITALS: BP 141/74
[2019-07-18] MEDS ORDERED: TERBUTALINE SULFATE 1MG/ML VIAL SUBCUT NR (16:30)
[2019-07-18 17:56] LABS: HEMOGLOBIN. 12.9 g/dL (14.0-18.0); MEAN CORPUSCULAR HEMOGLOBIN 31.7 pg (28.0-32.0); MEAN CORPUSCULAR VOLUME 93.6 fL (80.0-94.0); PLATELET 148 x1000/uL (130-400); RED BLOOD CELL COUNT 4.07 mill/uL (4.7-6.1); RED CELL DISTRIBUTION WIDTH 14.8 % (11.6-14.6)
[2019-07-18 18:05] LABS: CHLORIDE 108 mEq/L (98-107)
[2019-07-18 18:08] LABS: PLATELET ESTIMATE NORMAL
[2019-07-18] MEDS: DORZOLAM/TIMOLOL 2.23/0.68% OPHTH DROPS 10ML LEFTEYE SCH (18:25)
[2019-07-18 20:00] VITALS: BP 141/88
[2019-07-18] MEDS: FLUTICASONE PROPIONATE 50MCG/SPRAY BOTTLE BOTHNSTRLS SCH (21:43)
[2019-07-18] MEDS: ENOXAPARIN 40MG/0.4ML SYR SUBCUT SCH (21:45)
[2019-07-18] MEDS ORDERED: HYDROCODONE/ACETAMINOPHEN 5/325MG TABLET PO PRN (23:30)
[2019-07-18] MEDS ORDERED: MORPHINE SULFATE 2 MG/ML CPJ (NOT FOR IM USE) IV PRN (23:30)
[2019-07-19] VITALS: BP 138/78
[2019-07-19] MEDS: METHYLPREDNISOLONE SOD SUCC 40 MG/ML VIAL IV SCH ×4 (00:32→23:34)
[2019-07-19] MEDS: NITROGLYCERIN OINT 1GM/INCH UDPKT TD SCH ×5 (00:32→23:34)
[2019-07-19] MEDS: DORZOLAM/TIMOLOL 2.23/0.68% OPHTH DROPS 10ML LEFTEYE SCH ×3 (00:32→22:34)
[2019-07-19] MEDS: BRIMONIDINE 0.2% OPHTH DROPS 5ML LEFTEYE SCH ×4 (00:33→22:34)
[2019-07-19] MEDS: TRAZODONE HCL 50MG TABLET PO PRN ×2 (00:41→22:31)
[2019-07-19] MEDS: IPRATROPIUM/ALBUTEROL 0.5-3(2.5)MG/3ML NEB HHN SCH ×6 (01:24→23:52)
[2019-07-19 04:00] VITALS: BP 138/85
[2019-07-19] MEDS: GABAPENTIN 100MG CAPSULE PO SCH ×3 (05:48→22:32)
[2019-07-19] MEDS: ERYTHROMYCIN BASE 0.5% OPHTH OINT 3.5GM LEFTEYE SCH ×3 (05:49→22:00)
[2019-07-19] MEDS: INSULIN LISPRO 100 UNITS/ML SUBCUT SCH ×4 (06:05→23:26)
[2019-07-19] MEDS: MORPHINE SULFATE 2 MG/ML CPJ (NOT FOR IM USE) IV PRN ×3 (06:05→22:34)
[2019-07-19] MEDS: BLOOD SUGAR DIAGNOSTIC STRIP TEST SCH ×4 (06:06→21:00)
[2019-07-19] MEDS: BUDESONIDE 0.5MG/2ML NEB HHN SCH ×2 (07:43→09:14)
[2019-07-19 08:00] VITALS: BP 148/87
[2019-07-19] MEDS: AZITHROMYCIN 500 MG TABLET PO SCH (08:44)
[2019-07-19] MEDS: CLOPIDOGREL 75MG TABLET PO SCH (08:44)
[2019-07-19] MEDS: ASPIRIN 81MG EC TABLET PO SCH (08:44)
[2019-07-19] MEDS: NICOTINE 14MG PATCH TD SCH (08:44)
[2019-07-19] MEDS: GUAIFENESIN 600MG ER TABLET PO SCH ×2 (08:44→22:40)
[2019-07-19] MEDS: RANOLAZINE 500 MG TAB.SR.12H PO SCH ×2 (08:44→22:31)
[2019-07-19] MEDS: FLUTICASONE PROPIONATE 50MCG/SPRAY BOTTLE BOTHNSTRLS SCH ×2 (08:45→22:33)
[2019-07-19] MEDS: AMLODIPINE 5MG TABLET PO SCH ×2 (08:45→18:06)
[2019-07-19] MEDS: LOSARTAN POTASSIUM 25 MG TABLET PO SCH ×2 (08:45→18:06)
[2019-07-19 16:45] LABS: HEMATOCRIT. 38.3 % (42.0-52.0); MEAN CORPUSCULAR HEMOGLOBIN 31.3 pg (28.0-32.0); MEAN CORPUSCULAR VOLUME 92.4 fL (80.0-94.0); MEAN PLATELET VOLUME 8.7 fl (7.4-10.4); PLATELET 151 x1000/uL (130-400); RED BLOOD CELL COUNT 4.15 mill/uL (4.7-6.1)
[2019-07-19 17:06] LABS: CHLORIDE 107 mEq/L (98-107)
[2019-07-19 17:47] LABS: PLATELET ESTIMATE NORMAL
[2019-07-19] MEDS: LORATADINE 10MG TABLET PO SCH (18:06)
[2019-07-19 20:00] VITALS: BP 144/90
[2019-07-19] MEDS: FAMOTIDINE 20MG/2ML VIAL IV SCH (22:32)
[2019-07-19] MEDS: ENOXAPARIN 40MG/0.4ML SYR SUBCUT SCH (22:32)
[2019-07-20 04:00] VITALS: BP 146/90
[2019-07-20] MEDS: IPRATROPIUM/ALBUTEROL 0.5-3(2.5)MG/3ML NEB HHN SCH ×3 (04:36→13:08)
[2019-07-20] MEDS: NITROGLYCERIN OINT 1GM/INCH UDPKT TD SCH ×2 (05:09→11:44)
[2019-07-20] MEDS: GABAPENTIN 100MG CAPSULE PO SCH ×2 (05:09→13:11)
[2019-07-20] MEDS: MORPHINE SULFATE 2 MG/ML CPJ (NOT FOR IM USE) IV PRN ×2 (05:10→11:43)
[2019-07-20] MEDS: ERYTHROMYCIN BASE 0.5% OPHTH OINT 3.5GM LEFTEYE SCH ×2 (05:10→13:13)
[2019-07-20] MEDS: BRIMONIDINE 0.2% OPHTH DROPS 5ML LEFTEYE SCH ×2 (05:13→13:11)
[2019-07-20] MEDS: INSULIN LISPRO 100 UNITS/ML SUBCUT SCH ×2 (06:34→13:09)
[2019-07-20] MEDS: BLOOD SUGAR DIAGNOSTIC STRIP TEST SCH ×2 (06:57→11:44)
[2019-07-20 08:00] VITALS: BP 145/89
[2019-07-20] MEDS: CLOPIDOGREL 75MG TABLET PO SCH (08:52)
[2019-07-20] MEDS: METHYLPREDNISOLONE SOD SUCC 40 MG/ML VIAL IV SCH (08:52)
[2019-07-20] MEDS: ASPIRIN 81MG EC TABLET PO SCH (08:52)
[2019-07-20] MEDS: RANOLAZINE 500 MG TAB.SR.12H PO SCH (08:52)
[2019-07-20] MEDS: LOSARTAN POTASSIUM 25 MG TABLET PO SCH (08:52)
[2019-07-20] MEDS: AZITHROMYCIN 500 MG TABLET PO SCH (08:52)
[2019-07-20] MEDS: FLUTICASONE PROPIONATE 50MCG/SPRAY BOTTLE BOTHNSTRLS SCH (08:53)
[2019-07-20] MEDS: AMLODIPINE 5MG TABLET PO SCH (08:53)
[2019-07-20] MEDS: GUAIFENESIN 600MG ER TABLET PO SCH (08:53)
[2019-07-20] MEDS: NICOTINE 14MG PATCH TD SCH (08:53)
[2019-07-20] MEDS: FAMOTIDINE 20MG/2ML VIAL IV SCH (08:53)
[2019-07-20] MEDS: LORATADINE 10MG TABLET PO SCH (08:53)
[2019-07-20] MEDS: DORZOLAM/TIMOLOL 2.23/0.68% OPHTH DROPS 10ML LEFTEYE SCH (08:54)
[2019-07-20] MEDS ORDERED: FUROSEMIDE 20MG/2ML VIAL IVP SCH (10:45)
[2019-07-20 11:40] VITALS: BP 150/93
[2019-07-20] MEDS ORDERED: ALBU2.5V13 NEB (12:03)
[2019-07-20] MEDS ORDERED: TRAZ-213 PO (12:08)
[2019-07-20] MEDS ORDERED: LATA2.5D2 LEFTEYE (12:08)
[2019-07-20] MEDS ORDERED: BRIM5DRO6 LEFTEYE (12:08)
[2019-07-20] MEDS ORDERED: RANO500T3 PO (12:08)
[2019-07-20] MEDS ORDERED: GABA-531 PO (12:08)
[2019-07-20] MEDS ORDERED: CLOP75TA15 PO (12:08)
[2019-07-20] MEDS ORDERED: ATEN50TA PO (12:08)
[2019-07-20] MEDS ORDERED: HY1 PO (12:08)
[2019-07-20] MEDS ORDERED: DORZ10DR8 LEFTEYE (12:08)
[2019-07-20] MEDS ORDERED: ASPI-1393 PO (12:08)
[2019-07-20] MEDS ORDERED: ERYT1OIN6 EACHEYE (12:08)
[2019-07-20] MEDS ORDERED: PANT40TA4 MT (12:09)
[2019-07-20 12:30] VITALS: BP 150/93
== END 2019-07-20 15:59 | disposition home or self-care (01) | DRG 133 ==
LOC: ER 07:17 → 8WST 10:59 → ENRESERV 11:25
PROVIDERS: ADMIT Internal Medicine; ATTEND Internal Medicine
DX: J96.00 Acute respiratory failure, unspecified whether with hypoxia or hypercapnia (principal); J44.1 Chronic obstructive pulmonary disease with (acute) exacerbation; I11.0 Hypertensive heart disease with heart failure; I50.32 Chronic diastolic (congestive) heart failure; E83.42 Hypomagnesemia; G62.9 Polyneuropathy, unspecified; J45.901 Unspecified asthma with (acute) exacerbation; K76.0 Fatty (change of) liver, not elsewhere classified; K21.9 Gastro-esophageal reflux disease without esophagitis; H54.61 Unqualified visual loss, right eye, normal vision left eye; E87.6 Hypokalemia; E78.5 Hyperlipidemia, unspecified; B19.20 Unspecified viral hepatitis C without hepatic coma; N40.0 Benign prostatic hyperplasia without lower urinary tract symptoms; F17.210 Nicotine dependence, cigarettes, uncomplicated; I25.10 Atherosclerotic heart disease of native coronary artery without angina pectoris; E78.00 Pure hypercholesterolemia, unspecified; M47.812 Spondylosis without myelopathy or radiculopathy, cervical region; M51.27 Other intervertebral disc displacement, lumbosacral region; M48.00 Spinal stenosis, site unspecified; Z95.5 Presence of coronary angioplasty implant and graft; Z97.0 Presence of artificial eye; I25.2 Old myocardial infarction; Z79.899 Other long term (current) drug therapy; I69.354 Hemiplegia and hemiparesis following cerebral infarction affecting left non-dominant side; R73.9 Hyperglycemia, unspecified; Z71.6 Tobacco abuse counseling
CPT/HCPCS: 36415; 36600; 70551; 71045; 72141; 72146; 72148; 76700; 80048; 80061; 80076; 80305; 82248; 82375; 82550; 82553; 82607; 82746; 82805; 82962; 83036; 83735; 83880; 84100; 84439; 84443; 84481; 84484; 85379; 93005; 93306; 93880; 93970; 94640; 94644; 96374; 97161; 97165; 99285; J1650; J1815; J1940; J2270; J2405; J2785; J2920; J2930; J3105; J3475; J3490; J7040; J7611; J7620; J7626

== ENCOUNTER 2020-03-06 12:46 | Emergency (ER) | payer MEDICAID ==
[~2020-03-06] VITALS: Ht 170.2 cm; Wt 77.0 kg
[~2020-03-06 12:46] MED LIST changes: +ALBU18HF2 IH; +ALBU2.5V13 NEB; -ASPI-1393 PO; +ASPI-1497 PO; +AZIT500T8 PO; +CIPROFLOXACIN 0.3% LEFTEYE; +DILT240T12 PO; -ERYT1OIN6 EACHEYE; +FLUT1DIS2 INH; +GUAI-793 MT; +IBUP-2029 PO; -IBUP-2030 PO; -ISOS20TA57 PO; -LOSA100T32 PO; +NICO-645 TP; +P20 MT; +PANT40TA4 MT; +POTA-9 PO; +POTA10TA11 PO; +TIMO5DRO32 LEFTEYE; +TOBRDO RIGHTEYE; -TRAZ-213 PO; +TRAZ-252 PO; +[UNRECOGNIZED DRUG - OTHER] LEFTEYE; +[UNRECOGNIZED DRUG - OTHER] PO; +atrovastatin; +docusate PO; +isosorbide
[2020-03-06] MEDS ORDERED: ACETAMINOPHEN WITH CODEINE 300/30MG TABLET PO STA (14:11)
[2020-03-06] MEDS ORDERED: ASPIRIN 81MG TABLET PO ONE (14:15)
[2020-03-06 14:54] LABS: BASOPHILS % 0.6 % (0.0-2.0); EOSINOPHILS % 0.3 % (0.0-5.0); HEMATOCRIT. 43.2 % (42.0-52.0); HEMOGLOBIN. 14.9 g/dL (14.0-18.0); LYMPHOCYTES % 33.2 % (20.0-50.0); MEAN CORPUSCULAR HEMOGLOBIN 32.7 pg (28.0-32.0); MEAN PLATELET VOLUME 9.3 fl (7.4-10.4); MONOCYTES % 11.3 % (2.0-8.0); NEUTROPHILS % 54.6 % (40.0-76.0); PLATELET 167 x1000/uL (130-400); RED BLOOD CELL COUNT 4.55 mill/uL (4.7-6.1); RED CELL DISTRIBUTION WIDTH 15.9 % (11.6-14.6)
[2020-03-06 15:01] LABS: CHLORIDE 116 mEq/L (98-107)
[2020-03-06 15:05] LABS: ETHANOL BLOOD < 10 mg/dL
[2020-03-06 15:59] LABS: *AMPHETAMINES SCREEN URINE NEGATIVE (NEGATIVE); *BARBITURATES SCREEN URINE NEGATIVE (NEGATIVE); *BENZODIAZEPINES SCREEN URINE NEGATIVE (NEGATIVE); *COCAINE SCREEN URINE NEGATIVE (NEGATIVE)
[2020-03-06 16:00] LABS: CANNABINOID URINE SCREEN NEGATIVE (NEGATIVE); METHADONE URINE SCREEN NEGATIVE (NEGATIVE); OPIATES URINE SCREEN PRESUMTIVE POSITIVE (NEGATIVE); PHENCYCLIDINE URINE SCREEN NEGATIVE (NEGATIVE)
[2020-03-06 18:26] VITALS: BP 127/65
== END 2020-03-06 18:30 | disposition home or self-care (01) ==
LOC: ER 12:46
DX: R07.89 Other chest pain (principal); R94.31 Abnormal electrocardiogram [ECG] [EKG]; Z79.899 Other long term (current) drug therapy; I10 Essential (primary) hypertension; E78.00 Pure hypercholesterolemia, unspecified; H54.40 Blindness, one eye, unspecified eye
CPT/HCPCS: 36415; 71045; 80053; 80305; 80320; 83880; 84484; 85025; 93005; 99285; Z7610; G0480

== ENCOUNTER 2020-03-26 08:37 | Emergency (ER) | payer MEDICAID ==
[~2020-03-26] VITALS: Ht 170.2 cm; Wt 78.0 kg
[2020-03-26] MEDS ORDERED: KETOROLAC 60MG/2ML VIAL IM STA (09:07)
[2020-03-26 09:32] VITALS: BP 158/99
== END 2020-03-26 09:51 | disposition home or self-care (01) ==
LOC: ER 08:37
DX: M54.41 Lumbago with sciatica, right side (principal); I10 Essential (primary) hypertension; J45.909 Unspecified asthma, uncomplicated
CPT/HCPCS: 96372; 99283; J1885

== ENCOUNTER 2020-06-25 08:37 | Emergency (ER) | payer MEDICAID ==
[~2020-06-25] VITALS: Ht 170.2 cm; Wt 77.0 kg
[2020-06-25] MEDS ORDERED: IPRATROPIUM BROMIDE (0.02%) 0.5MG/2.5ML NEB HHN STA (09:00)
[2020-06-25] MEDS ORDERED: ALBUTEROL (0.083%) 2.5MG/3ML NEB HHN STA (09:00)
[2020-06-25] MEDS ORDERED: METHYLPREDNISOLONE SOD SUCC 125 MG/2 ML VIAL IV STA (09:00)
[2020-06-25] MEDS ORDERED: OXYCODONE HCL/ACETAMINOPHEN 5/325MG TABLET PO ONE (09:45)
[2020-06-25 11:08] VITALS: BP 135/88
== END 2020-06-25 11:21 | disposition home or self-care (01) ==
LOC: ER 08:37
DX: J44.1 Chronic obstructive pulmonary disease with (acute) exacerbation (principal); M79.10 Myalgia, unspecified site; I10 Essential (primary) hypertension; E78.00 Pure hypercholesterolemia, unspecified; Z98.61 Coronary angioplasty status
CPT/HCPCS: 71045; 73502; 93005; 94644; 96374; 99285; J2930; Z7610

== ENCOUNTER 2021-09-29 07:26 | Inpatient (IN) | payer MEDICAID, OTHER ==
[~2021-09-29] VITALS: Ht 170.2 cm; Wt 79.4 kg
[~2021-09-29 07:26] MED LIST changes: -ALBU2.5V13 NEB; -ASPI-1497 PO; +ATOR20TA65 MT; -AZIT500T8 PO; +BISA5TAB10 PO; -CIPROFLOXACIN 0.3% LEFTEYE; -DILT240T12 PO; +DILT60TA35 PO; -DOCU-138 PO; -GABA-531 PO; +GABA-532 PO; +HYDR-4346 MT; +HYDR26CR2 TP; -IBUP-2029 PO; +ISOS30TA12 MT; +LATA2.5D14 LEFTEYE; -LATA2.5D2 LEFTEYE; -LISI-604 PO; +LISI20TA31 PO; +METH-653 MT; -P20 MT; -PANT40TA4 MT; +PANT40TA51 MT; -POTA-9 PO; -POTA10TA11 PO; -TOBRDO RIGHTEYE; -[UNRECOGNIZED DRUG - OTHER] LEFTEYE; -[UNRECOGNIZED DRUG - OTHER] PO; -atrovastatin; -docusate PO; -isosorbide
[2021-09-29] MEDS ORDERED: ASPIRIN 81MG TABLET PO ONE (08:00)
[2021-09-29 09:21] LABS: BASOPHILS % 0.3 % (0.0-2.0); EOSINOPHILS % 0.9 % (0.0-5.0); HEMATOCRIT. 45.9 % (42.0-52.0); HEMOGLOBIN. 15.5 g/dL (14.0-18.0); LYMPHOCYTES % 36.6 % (20.0-50.0); MEAN CORPUSCULAR HEMOGLOBIN 32.1 pg (28.0-32.0); MEAN CORPUSCULAR VOLUME 94.9 fL (80.0-94.0); MEAN PLATELET VOLUME 8.3 fl (7.4-10.4); MONOCYTES % 11.2 % (2.0-8.0); PLATELET 135 x1000/uL (130-400); RED BLOOD CELL COUNT 4.84 mill/uL (4.7-6.1); RED CELL DISTRIBUTION WIDTH 15.1 % (11.6-14.6)
[2021-09-29 09:31] LABS: CHLORIDE 112 mEq/L (98-107)
[2021-09-29] MEDS: NITROGLYCERIN 0.4MG TABLET SL SL PRN (12:29)
[2021-09-29] MEDS ORDERED: ONDANSETRON HCL 4MG/2ML INJ IV PRN (13:30)
[2021-09-29] MEDS: ACETAMINOPHEN 325MG TABLET PO PRN (16:37)
[2021-09-30] MEDS: NITROGLYCERIN 0.4MG TABLET SL SL PRN (00:01)
[2021-09-30] MEDS: ACETAMINOPHEN 325MG TABLET PO PRN ×2 (02:37→16:11)
[2021-09-30] MEDS ORDERED: NALOXONE HCL 0.4MG/ML VIAL IV PRN (04:15)
[2021-09-30] MEDS: HYDROCODONE/ACETAMINOPHEN 10/325MG TABLET PO PRN ×3 (04:34→13:15)
[2021-09-30] MEDS: CLONIDINE 0.1MG TABLET PO PRN ×2 (05:25→16:07)
[2021-09-30] MEDS ORDERED: CLOPIDOGREL 75MG TABLET PO SCH (09:00)
[2021-09-30] MEDS ORDERED: ASPIRIN 81MG TABLET PO SCH (09:00)
[2021-09-30 10:00] VITALS: BP 166/102
[2021-09-30 10:07] VITALS: BP 166/102
[2021-09-30 12:30] VITALS: BP 147/81
[2021-09-30] MEDS ORDERED: REGADENOSON 0.4 MG/5 ML IV ONE (12:45)
[2021-09-30] MEDS ORDERED: METHYLPREDNISOLONE SOD SUCC 40 MG/ML VIAL IV SCH (13:00)
[2021-09-30] MEDS ORDERED: DORZOLAMIDE 2% OPHTH 10 ML BOTTLE LEFTEYE SCH (14:00)
[2021-09-30] MEDS ORDERED: BRIMONIDINE 0.2% OPHTH DROPS 5ML LEFTEYE SCH (14:00)
[2021-09-30 15:59] VITALS: BP 178/106
[2021-09-30] MEDS ORDERED: IPRATROPIUM/ALBUTEROL 0.5-3(2.5)MG/3ML NEB HHN SCH (16:00)
[2021-09-30] MEDS ORDERED: HYDRALAZINE 20MG/ML VIAL IV NR (17:30)
[2021-09-30 18:53] VITALS: BP 158/88
[2021-09-30] MEDS ORDERED: TIMOLOL MALEATE 0.5% OPHTH DROPS 5ML LEFTEYE SCH (21:00)
[2021-09-30] MEDS ORDERED: FAMOTIDINE 20MG TABLET PO SCH (21:00)
[2021-09-30] MEDS ORDERED: LATANOPROST 0.005% OPHTH DROPS 2.5ML LEFTEYE SCH (21:00)
== END 2021-09-30 20:10 | disposition home or self-care (01) | DRG 203 ==
LOC: ER 07:26 → MICUSO 09-30 06:11 → 6WST 09-30 09:15
PROVIDERS: ADMIT Internal Medicine; ATTEND Internal Medicine
DX: M94.0 Chondrocostal junction syndrome [Tietze] (principal); E11.8 Type 2 diabetes mellitus with unspecified complications; E44.1 Mild protein-calorie malnutrition; E87.8 Other disorders of electrolyte and fluid balance, not elsewhere classified; D72.819 Decreased white blood cell count, unspecified; E78.00 Pure hypercholesterolemia, unspecified; E11.9 Type 2 diabetes mellitus without complications; I25.10 Atherosclerotic heart disease of native coronary artery without angina pectoris; E78.5 Hyperlipidemia, unspecified; I10 Essential (primary) hypertension; R74.01 Elevation of levels of liver transaminase levels; Z68.27 Body mass index [BMI] 27.0-27.9, adult; Z86.79 Personal history of other diseases of the circulatory system; Z95.5 Presence of coronary angioplasty implant and graft; Z79.899 Other long term (current) drug therapy
CPT/HCPCS: 36415; 71045; 80053; 83880; 84484; 85025; 93005; 99285; J0360; J2920

== ENCOUNTER 2021-12-15 11:07 | Emergency (ER) | payer MEDICAID, OTHER ==
[~2021-12-15] VITALS: Ht 170.2 cm; Wt 73.0 kg
[2021-12-15] MEDS ORDERED: IPRATROPIUM BROMIDE (0.02%) 0.5MG/2.5ML NEB HHN STA (11:29)
[2021-12-15] MEDS: ALBUTEROL (0.083%) 2.5MG/3ML NEB HHN SCH ×3 (11:30→12:30)
[2021-12-15 12:27] LABS: BASOPHILS % 0.5 % (0.0-2.0); EOSINOPHILS % 0.9 % (0.0-5.0); HEMATOCRIT. 42.1 % (42.0-52.0); HEMOGLOBIN. 14.5 g/dL (14.0-18.0); LYMPHOCYTES % 34.8 % (20.0-50.0); MEAN CORPUSCULAR HEMOGLOBIN 32.4 pg (28.0-32.0); MEAN CORPUSCULAR VOLUME 94.4 fL (80.0-94.0); MEAN PLATELET VOLUME 8.5 fl (7.4-10.4); MONOCYTES % 14.6 % (2.0-8.0); NEUTROPHILS % 49.2 % (40.0-76.0); PLATELET 155 x1000/uL (130-400); RED BLOOD CELL COUNT 4.46 mill/uL (4.7-6.1); RED CELL DISTRIBUTION WIDTH 15.3 % (11.6-14.6)
[2021-12-15 12:35] LABS: CHLORIDE 109 mEq/L (98-107)
[2021-12-15 13:19] LABS: CLARITY URINE CLEAR (CLEAR); COLOR URINE YELLOW (YELLOW); KETONES URINE NEGATIVE (NEGATIVE); LEUKOCYTE ESTERASE URINE TRACE (NEGATIVE); NITRITE URINE NEGATIVE (NEGATIVE); OCCULT BLOOD URINE 2+ (NEGATIVE); PROTEIN URINE NEGATIVE (NEGATIVE)
[2021-12-15 13:38] LABS: *AMPHETAMINES SCREEN URINE NEGATIVE (NEGATIVE); *BENZODIAZEPINES SCREEN URINE NEGATIVE (NEGATIVE); *COCAINE SCREEN URINE NEGATIVE (NEGATIVE); PHENCYCLIDINE URINE SCREEN NEGATIVE (NEGATIVE)
[2021-12-15 13:39] LABS: *BARBITURATES SCREEN URINE NEGATIVE (NEGATIVE); CANNABINOID URINE SCREEN NEGATIVE (NEGATIVE); METHADONE URINE SCREEN NEGATIVE (NEGATIVE); OPIATES URINE SCREEN PRESUMTIVE POSITIVE (NEGATIVE)
[2021-12-15] MEDS ORDERED: MORPHINE SULFATE 4 MG/ML CPJ (NOT FOR IM USE) IV ONE (14:30)
[2021-12-15] MEDS ORDERED: IOHEXOL-350 100 ML BOTTLE ONE (16:11)
[2021-12-15 16:25] VITALS: BP 103/115
== END 2021-12-15 19:00 | disposition home or self-care (01) ==
LOC: ER 11:07
DX: R06.89 Other abnormalities of breathing (principal); M79.89 Other specified soft tissue disorders; E78.00 Pure hypercholesterolemia, unspecified; J44.1 Chronic obstructive pulmonary disease with (acute) exacerbation; I25.2 Old myocardial infarction; I10 Essential (primary) hypertension; Z79.899 Other long term (current) drug therapy; Z98.890 Other specified postprocedural states
CPT/HCPCS: 36415; 71045; 71275; 80053; 80305; 81003; 83880; 84484; 85025; 93005; 93970; 94644; 96374; 99285; J2270; Q9967; Z7610; 94640

== ENCOUNTER 2021-12-17 10:42 | Emergency (ER) | payer OTHER ==
[~2021-12-17] VITALS: Ht 175.3 cm; Wt 73.0 kg
[2021-12-17] MEDS ORDERED: HYDROCODONE/APAP 7.5/325MG 1 TAB TABLET PO ONE (11:15)
[2021-12-17] MEDS ORDERED: BACITRACIN ZINC OINT UDPKT TOP ONE (14:45)
[2021-12-17] MEDS ORDERED: LIDOCAINE HCL/EPINEPHRINE 1%-EPI 1:100,000 20 ML VIAL INFIL ONE (14:45)
[2021-12-17] MEDS ORDERED: TETANUS, DIPHTHERIA, PERTUSSIS VAC/PF 0.5ML (>10YR OLD) IM ONE (14:45)
[2021-12-17 16:48] VITALS: BP 180/100
[2021-12-17] MEDS ORDERED: HYDRALAZINE HCL 25MG TABLET PO ONE (17:15)
[2021-12-17] MEDS ORDERED: CLONIDINE 0.1MG TABLET PO ONE (17:15)
== END 2021-12-17 17:35 | disposition home or self-care (01) ==
LOC: ER 10:53
DX: S81.811A Laceration without foreign body, right lower leg, initial encounter (principal); S29.8XXA Other specified injuries of thorax, initial encounter; E78.00 Pure hypercholesterolemia, unspecified; I25.2 Old myocardial infarction; J44.9 Chronic obstructive pulmonary disease, unspecified; I11.9 Hypertensive heart disease without heart failure; F12.10 Cannabis abuse, uncomplicated; F17.210 Nicotine dependence, cigarettes, uncomplicated; Z98.61 Coronary angioplasty status; W17.89XA Other fall from one level to another, initial encounter; Y93.89 Activity, other specified; Y92.481 Parking lot as the place of occurrence of the external cause
CPT/HCPCS: 12002; 71250; 73590; 90471; 90715; 93005; 99285; J3490; Z7610

== ENCOUNTER 2022-05-15 12:46 | Emergency (ER) | payer MEDICAID, OTHER ==
[~2022-05-15] VITALS: Ht 170.2 cm; Wt 73.0 kg
[~2022-05-15 12:46] MED LIST changes: -HY1 PO; +TERA1CAP54 PO; +TIMO5DRO32 EACHEYE
[2022-05-15 13:09] VITALS: BP 175/112
[2022-05-15] MEDS ORDERED: TOPUD PO (14:48)
[2022-05-15] MEDS ORDERED: ACETAMINOPHEN 325MG TABLET PO ONE (15:00)
== END 2022-05-15 15:10 | disposition home or self-care (01) ==
LOC: ER 12:58
DX: M25.551 Pain in right hip (principal); I25.10 Atherosclerotic heart disease of native coronary artery without angina pectoris; I10 Essential (primary) hypertension; E78.00 Pure hypercholesterolemia, unspecified; J44.9 Chronic obstructive pulmonary disease, unspecified; I25.2 Old myocardial infarction; I69.351 Hemiplegia and hemiparesis following cerebral infarction affecting right dominant side; F12.10 Cannabis abuse, uncomplicated; Z98.61 Coronary angioplasty status; Z79.01 Long term (current) use of anticoagulants
CPT/HCPCS: 73502; 99283

== ENCOUNTER 2022-10-28 11:56 | Inpatient (IN) | payer MEDICAID, OTHER ==
[~2022-10-28] VITALS: Ht 170.2 cm; Wt 80.3 kg
[~2022-10-28 11:56] MED LIST changes: +BISA-145 PO; -BISA5TAB10 PO; +TOPUD PO
[2022-10-28] MEDS ORDERED: HYDRALAZINE 20MG/ML VIAL IV ONE (15:15)
[2022-10-28] MEDS ORDERED: ASPIRIN 81MG TABLET PO ONE (15:15)
[2022-10-28] MEDS ORDERED: HYDROCODONE/ACETAMINOPHEN 5/325MG TABLET PO ONE (15:15)
[2022-10-28 15:44] LABS: BASOPHILS % 0.6 % (0.0-2.0); EOSINOPHILS % 1.3 % (0.0-5.0); HEMATOCRIT. 43.4 % (42.0-52.0); HEMOGLOBIN. 14.7 g/dL (14.0-18.0); LYMPHOCYTES % 39.8 % (20.0-50.0); MEAN CORPUSCULAR HEMOGLOBIN 32.2 pg (28.0-32.0); MEAN PLATELET VOLUME 9.4 fl (7.4-10.4); MONOCYTES % 8.9 % (2.0-8.0); NEUTROPHILS % 49.4 % (40.0-76.0); PLATELET 129 x1000/uL (130-400); RED BLOOD CELL COUNT 4.57 mill/uL (4.7-6.1); RED CELL DISTRIBUTION WIDTH 14.8 % (11.6-14.6)
[2022-10-28 15:57] LABS: CHLORIDE 103 mEq/L (98-107)
[2022-10-28] MEDS ORDERED: LABETALOL 5MG/ML SYR 20 MG/4 ML SYRINGE IV NR (17:15)
[2022-10-28] MEDS ORDERED: ALBUTEROL (0.083%) 2.5MG/3ML NEB HHN PRN (18:45)
[2022-10-28] MEDS ORDERED: ONDANSETRON HCL 4MG/2ML INJ IV PRN (18:45)
[2022-10-28] MEDS ORDERED: HYDRALAZINE 20MG/ML VIAL IV PRN (18:45)
[2022-10-28] MEDS ORDERED: CLONIDINE 0.1MG TABLET PO PRN (18:45)
[2022-10-28] MEDS ORDERED: DIPHENHYDRAMINE 50MG/ML VIAL IV PRN (18:45)
[2022-10-28] MEDS ORDERED: IPRATROPIUM/ALBUTEROL 0.5-3(2.5)MG/3ML NEB HHN PRN (18:45)
[2022-10-28] MEDS ORDERED: NALOXONE HCL 0.4MG/ML VIAL IV PRN (18:45)
[2022-10-28] MEDS ORDERED: ACETAMINOPHEN 325MG TABLET PO PRN (18:45)
[2022-10-28] MEDS ORDERED: IPRATROPIUM BROMIDE (0.02%) 0.5MG/2.5ML NEB HHN PRN (18:45)
[2022-10-28 19:00] VITALS: BP 190/110
[2022-10-28] MEDS: MORPHINE SULFATE 2 MG/ML CPJ (NOT FOR IM USE) IV PRN (19:56)
[2022-10-28 20:30] VITALS: BP 179/90
[2022-10-28] MEDS ORDERED: VALS320T16 MT (23:09)
[2022-10-28] MEDS ORDERED: CARV3.1242 MT (23:11)
[2022-10-28] MEDS ORDERED: CLON0.2T PO (23:12)
[2022-10-28] MEDS ORDERED: Hydralazine (23:15)
[2022-10-28] MEDS ORDERED: DOXA8TAB81 MT (23:16)
[2022-10-28] MEDS ORDERED: METH-371 MT (23:17)
[2022-10-28] MEDS ORDERED: ISOS60TA76 MT (23:19)
[2022-10-28] MEDS ORDERED: ATOR40TA70 MT (23:21)
[2022-10-28] MEDS ORDERED: ASPI-1497 MT (23:24)
[2022-10-28] MEDS ORDERED: CLOP75TA33 MT (23:26)
[2022-10-29] VITALS (7 sets, daily range): BP systolic 112–189; BP diastolic 60–94
[2022-10-29] MEDS: DORZOLAMIDE 2% OPHTH 10 ML BOTTLE LEFTEYE SCH ×4 (01:40→17:48)
[2022-10-29] MEDS: BRIMONIDINE 0.2% OPHTH DROPS 5ML LEFTEYE SCH ×4 (01:40→17:48)
[2022-10-29] MEDS: MORPHINE SULFATE 2 MG/ML CPJ (NOT FOR IM USE) IV PRN ×5 (01:52→22:25)
[2022-10-29] MEDS ORDERED: CEPH500C2 MT (01:59)
[2022-10-29] MEDS: CLONIDINE 0.2MG TABLET PO SCH ×3 (02:20→17:00)
[2022-10-29] MEDS: CEPHALEXIN 250MG CAPSULE PO SCH ×5 (02:20→20:30)
[2022-10-29 05:30] LABS: BASOPHILS % 0.4 % (0.0-2.0); EOSINOPHILS % 3.3 % (0.0-5.0); HEMATOCRIT. 37.1 % (42.0-52.0); HEMOGLOBIN. 12.8 g/dL (14.0-18.0); LYMPHOCYTES % 47.4 % (20.0-50.0); MEAN CORPUSCULAR HEMOGLOBIN 32.4 pg (28.0-32.0); MEAN CORPUSCULAR VOLUME 93.8 fL (80.0-94.0); MEAN PLATELET VOLUME 9.2 fl (7.4-10.4); MONOCYTES % 13.9 % (2.0-8.0); PLATELET 120 x1000/uL (130-400); RED BLOOD CELL COUNT 3.95 mill/uL (4.7-6.1); RED CELL DISTRIBUTION WIDTH 14.9 % (11.6-14.6)
[2022-10-29 05:59] LABS: CHLORIDE 105 mEq/L (98-107)
[2022-10-29] MEDS ORDERED: CLOPIDOGREL 75MG TABLET PO SCH (09:00)
[2022-10-29] MEDS: TIMOLOL MALEATE 0.5% OPHTH DROPS 5ML LEFTEYE SCH ×2 (09:39→17:48)
[2022-10-29] MEDS: METHIMAZOLE 5MG TABLET PO SCH (09:40)
[2022-10-29] MEDS: CARVEDILOL 3.125 MG TABLET PO SCH ×2 (09:41→20:31)
[2022-10-29] MEDS: ISOSORBIDE MONONITRATE 60MG TABLET SR 24HR PO SCH (09:41)
[2022-10-29] MEDS: CLOPIDOGREL 75MG TABLET PO SCH (09:41)
[2022-10-29] MEDS: DOXAZOSIN MESYLATE 4MG TABLET PO SCH (09:41)
[2022-10-29] MEDS: LOSARTAN POTASSIUM 100 MG TABLET PO SCH (09:41)
[2022-10-29] MEDS: ASPIRIN 81MG EC TABLET PO SCH (09:44)
[2022-10-29] MEDS ORDERED: INFLUENZA VACCINE 05/PF 0.5 ML SYRINGE IM ONE (11:00)
[2022-10-29] MEDS ORDERED: IOHEXOL-350 100 ML BOTTLE ONE (12:16)
[2022-10-29] MEDS ORDERED: BISACODYL 5MG TABLET PO PRN (13:45)
[2022-10-29] MEDS: AMLODIPINE 5MG TABLET PO SCH (17:49)
[2022-10-29] MEDS: GABAPENTIN 300MG CAPSULE PO SCH (17:49)
[2022-10-29] MEDS: LATANOPROST 0.005% OPHTH DROPS 2.5ML LEFTEYE SCH (20:30)
[2022-10-29] MEDS: ATORVASTATIN CALCIUM 40MG TABLET PO SCH (20:30)
[2022-10-29] MEDS: RANOLAZINE 500 MG TAB.SR.12H PO SCH (22:53)
[2022-10-30] VITALS: BP 141/78
[2022-10-30 04:00] VITALS: BP 173/93
[2022-10-30] MEDS: MORPHINE SULFATE 2 MG/ML CPJ (NOT FOR IM USE) IV PRN (04:57)
[2022-10-30 08:00] VITALS: BP 136/84
[2022-10-30] MEDS: CARVEDILOL 3.125 MG TABLET PO SCH ×2 (09:19→20:36)
[2022-10-30] MEDS: CLOPIDOGREL 75MG TABLET PO SCH (09:20)
[2022-10-30] MEDS: ATENOLOL 50 MG TABLET PO SCH (09:20)
[2022-10-30] MEDS: ASPIRIN 81MG EC TABLET PO SCH (09:21)
[2022-10-30] MEDS: LOSARTAN POTASSIUM 100 MG TABLET PO SCH (09:21)
[2022-10-30] MEDS: AMLODIPINE 5MG TABLET PO SCH ×2 (09:21→16:58)
[2022-10-30] MEDS: DOXAZOSIN MESYLATE 4MG TABLET PO SCH (09:21)
[2022-10-30] MEDS: LISINOPRIL 20MG TABLET PO SCH (09:21)
[2022-10-30] MEDS: CLONIDINE 0.2MG TABLET PO SCH ×2 (09:21→16:59)
[2022-10-30] MEDS: ISOSORBIDE MONONITRATE 60MG TABLET SR 24HR PO SCH (09:22)
[2022-10-30] MEDS: GABAPENTIN 300MG CAPSULE PO SCH ×3 (09:22→16:57)
[2022-10-30] MEDS: METHIMAZOLE 5MG TABLET PO SCH (09:22)
[2022-10-30] MEDS: CEPHALEXIN 250MG CAPSULE PO SCH ×4 (09:22→20:37)
[2022-10-30] MEDS: DORZOLAMIDE 2% OPHTH 10 ML BOTTLE LEFTEYE SCH ×3 (09:23→16:57)
[2022-10-30] MEDS: RANOLAZINE 500 MG TAB.SR.12H PO SCH ×2 (09:23→20:38)
[2022-10-30] MEDS: BRIMONIDINE 0.2% OPHTH DROPS 5ML LEFTEYE SCH ×3 (09:23→16:57)
[2022-10-30] MEDS: TIMOLOL MALEATE 0.5% OPHTH DROPS 5ML LEFTEYE SCH ×2 (09:23→16:57)
[2022-10-30] MEDS: MORPHINE SULFATE 4 MG/ML CPJ (NOT FOR IM USE) IV PRN ×3 (10:27→20:35)
[2022-10-30] MEDS ORDERED: POTASSIUM CHLORIDE 20MEQ TABLET SR PO NR (10:30)
[2022-10-30 12:00] VITALS: BP 136/84
[2022-10-30 16:00] VITALS: BP 132/84
[2022-10-30 20:00] VITALS: BP 116/76
[2022-10-30] MEDS: ATORVASTATIN CALCIUM 40MG TABLET PO SCH (20:38)
[2022-10-30] MEDS: LATANOPROST 0.005% OPHTH DROPS 2.5ML LEFTEYE SCH (20:38)
[2022-10-31] VITALS: BP 119/72
[2022-10-31] MEDS: MORPHINE SULFATE 4 MG/ML CPJ (NOT FOR IM USE) IV PRN ×5 (02:22→21:41)
[2022-10-31 04:00] VITALS: BP 136/80
[2022-10-31 08:00] VITALS: BP 133/88
[2022-10-31] MEDS: AMLODIPINE 5MG TABLET PO SCH ×2 (11:14→17:33)
[2022-10-31] MEDS: CEPHALEXIN 250MG CAPSULE PO SCH ×4 (11:15→20:30)
[2022-10-31] MEDS: CLONIDINE 0.2MG TABLET PO SCH ×2 (11:15→17:33)
[2022-10-31] MEDS: RANOLAZINE 500 MG TAB.SR.12H PO SCH ×2 (11:15→20:29)
[2022-10-31] MEDS: GABAPENTIN 300MG CAPSULE PO SCH ×3 (11:15→17:33)
[2022-10-31] MEDS: ATENOLOL 50 MG TABLET PO SCH (11:16)
[2022-10-31] MEDS: ISOSORBIDE MONONITRATE 60MG TABLET SR 24HR PO SCH (11:17)
[2022-10-31] MEDS: METHIMAZOLE 5MG TABLET PO SCH (11:17)
[2022-10-31] MEDS: DOXAZOSIN MESYLATE 4MG TABLET PO SCH (11:17)
[2022-10-31] MEDS: ASPIRIN 81MG EC TABLET PO SCH (11:18)
[2022-10-31] MEDS: CLOPIDOGREL 75MG TABLET PO SCH (11:18)
[2022-10-31] MEDS: CARVEDILOL 3.125 MG TABLET PO SCH ×2 (11:18→20:29)
[2022-10-31] MEDS: LISINOPRIL 20MG TABLET PO SCH (11:18)
[2022-10-31] MEDS: LATANOPROST 0.005% OPHTH DROPS 2.5ML LEFTEYE SCH (11:19)
[2022-10-31] MEDS: BRIMONIDINE 0.2% OPHTH DROPS 5ML LEFTEYE SCH ×3 (11:19→17:35)
[2022-10-31] MEDS: DORZOLAMIDE 2% OPHTH 10 ML BOTTLE LEFTEYE SCH ×3 (11:19→17:35)
[2022-10-31] MEDS: TIMOLOL MALEATE 0.5% OPHTH DROPS 5ML LEFTEYE SCH ×2 (11:19→17:34)
[2022-10-31 12:00] VITALS: BP 138/72
[2022-10-31] MEDS: LOSARTAN POTASSIUM 100 MG TABLET PO SCH (13:37)
[2022-10-31] MEDS ORDERED: REGADENOSON 0.4 MG/5 ML IV NR (14:15)
[2022-10-31 16:00] VITALS: BP 111/72
[2022-10-31 19:59] VITALS: BP 114/66
[2022-10-31] MEDS: ATORVASTATIN CALCIUM 40MG TABLET PO SCH (20:30)
[2022-11-01] VITALS: BP 121/63
[2022-11-01] MEDS: MORPHINE SULFATE 4 MG/ML CPJ (NOT FOR IM USE) IV PRN ×2 (02:20→08:36)
[2022-11-01 04:00] VITALS: BP 133/86
[2022-11-01 08:28] VITALS: BP 138/89
[2022-11-01] MEDS: TIMOLOL MALEATE 0.5% OPHTH DROPS 5ML LEFTEYE SCH (08:35)
[2022-11-01] MEDS: BRIMONIDINE 0.2% OPHTH DROPS 5ML LEFTEYE SCH ×2 (08:35→12:42)
[2022-11-01] MEDS: DORZOLAMIDE 2% OPHTH 10 ML BOTTLE LEFTEYE SCH ×2 (08:35→12:42)
[2022-11-01] MEDS: GABAPENTIN 300MG CAPSULE PO SCH ×2 (09:00→12:39)
[2022-11-01] MEDS: CEPHALEXIN 250MG CAPSULE PO SCH ×2 (09:00→12:39)
[2022-11-01] MEDS ORDERED: REGADENOSON 0.4 MG/5 ML IV ONE (10:57)
[2022-11-01] MEDS ORDERED: OXYCODONE HCL/ACETAMINOPHEN 5/325MG TABLET PO PRN (11:30)
[2022-11-01 12:00] VITALS: BP 153/96
[2022-11-01] MEDS: METHIMAZOLE 5MG TABLET PO SCH (12:38)
[2022-11-01] MEDS: CLOPIDOGREL 75MG TABLET PO SCH (12:38)
[2022-11-01] MEDS: ASPIRIN 81MG EC TABLET PO SCH (12:38)
[2022-11-01] MEDS: CLONIDINE 0.2MG TABLET PO SCH (12:38)
[2022-11-01] MEDS: ATENOLOL 50 MG TABLET PO SCH (12:39)
[2022-11-01] MEDS: ISOSORBIDE MONONITRATE 60MG TABLET SR 24HR PO SCH (12:39)
[2022-11-01] MEDS: RANOLAZINE 500 MG TAB.SR.12H PO SCH (12:40)
[2022-11-01] MEDS: LISINOPRIL 20MG TABLET PO SCH (12:40)
[2022-11-01] MEDS: DOXAZOSIN MESYLATE 4MG TABLET PO SCH (12:40)
[2022-11-01] MEDS: LOSARTAN POTASSIUM 100 MG TABLET PO SCH (12:40)
[2022-11-01] MEDS: CARVEDILOL 3.125 MG TABLET PO SCH (12:41)
[2022-11-01] MEDS: AMLODIPINE 5MG TABLET PO SCH (12:41)
[2022-11-01] MEDS ORDERED: OXYC-100 MT (13:19)
[2022-11-01 15:29] VITALS: BP 134/93
[2022-11-01 16:00] VITALS: BP 134/73
== END 2022-11-01 18:00 | disposition home or self-care (01) | DRG 347 ==
LOC: ER 12:24 → 8WST 17:16 → EDBEDREQ 17:20 → EDBEDREQTM 17:20 → EDBEDREQ 17:23 → ENRESERV 18:41
PROVIDERS: ADMIT Internal Medicine; ATTEND Internal Medicine
DX: M51.16 Intervertebral disc disorders with radiculopathy, lumbar region (principal); E78.00 Pure hypercholesterolemia, unspecified; I10 Essential (primary) hypertension; I16.0 Hypertensive urgency; M48.07 Spinal stenosis, lumbosacral region; Z20.822 Contact with and (suspected) exposure to COVID-19; I25.10 Atherosclerotic heart disease of native coronary artery without angina pectoris; J44.9 Chronic obstructive pulmonary disease, unspecified; E78.5 Hyperlipidemia, unspecified; G89.29 Other chronic pain; H40.9 Unspecified glaucoma; F17.200 Nicotine dependence, unspecified, uncomplicated; Z79.899 Other long term (current) drug therapy; Z86.73 Personal history of transient ischemic attack (TIA), and cerebral infarction without residual deficits; Z95.1 Presence of aortocoronary bypass graft; I25.2 Old myocardial infarction; Z90.01 Acquired absence of eye; Z79.02 Long term (current) use of antithrombotics/antiplatelets
CPT/HCPCS: 36415; 71045; 71275; 72148; 74174; 78452; 80053; 83735; 83880; 84484; 85025; 87426; 90686; 93005; 93017; 93306; 93970; 99285; A9500; J0360; J2270; J2785; J3490; Q9967

== ENCOUNTER 2023-01-04 15:00 | Emergency (ER) | payer MEDICAID, OTHER ==
[~2023-01-04] VITALS: Ht 170.2 cm; Wt 73.0 kg
[~2023-01-04 15:00] MED LIST changes: +ASPI-1497 MT; -ATOR20TA65 MT; +ATOR40TA70 MT; +CARV3.1242 MT; +CEPH500C2 MT; +CLON0.2T PO; -DILT60TA35 PO; +DOXA8TAB81 MT; -HYDR-4346 MT; -ISOS30TA12 MT; +ISOS60TA76 MT; +METH-371 MT; +OXYC-100 MT; -TIMO5DRO32 EACHEYE
[2023-01-04] MEDS ORDERED: KETOROLAC 30MG/ML VIAL IM ONE (19:30)
[2023-01-04 20:00] LABS: CLARITY URINE CLEAR (CLEAR); COLOR URINE YELLOW (YELLOW); KETONES URINE NEGATIVE (NEGATIVE); LEUKOCYTE ESTERASE URINE NEGATIVE (NEGATIVE); NITRITE URINE NEGATIVE (NEGATIVE); OCCULT BLOOD URINE NEGATIVE (NEGATIVE); PH URINE 6.5 (4.5-8.0); PROTEIN URINE NEGATIVE (NEGATIVE); SPECIFIC GRAVITY URINE 1.007 (1.005-1.030); UROBILINOGEN URINE 0.2 E.U./dL (0.2-1.0)
[2023-01-04] MEDS ORDERED: METH-653 MT (20:11)
[2023-01-04] MEDS ORDERED: IBUP-2029 MT (20:11)
[2023-01-04] MEDS ORDERED: ISOSORBIDE MONONITRATE 60MG TABLET SR 24HR PO SCH (20:30)
[2023-01-04] MEDS ORDERED: CLONIDINE 0.2MG TABLET PO ONE (20:30)
[2023-01-04] MEDS ORDERED: CARVEDILOL 3.125 MG TABLET PO ONE (20:30)
[2023-01-04] MEDS ORDERED: HYDRALAZINE HCL 50MG TABLET PO ONE (20:30)
[2023-01-04 20:49] VITALS: BP 209/112
== END 2023-01-04 20:52 | disposition home or self-care (01) ==
LOC: ER 15:00
DX: K40.90 Unilateral inguinal hernia, without obstruction or gangrene, not specified as recurrent (principal); I10 Essential (primary) hypertension; Z79.899 Other long term (current) drug therapy
CPT/HCPCS: 81003; 96372; 99284; J1885; Z7610

== ENCOUNTER 2023-06-09 13:28 | Emergency (ER) | payer MEDICAID ==
[~2023-06-09] VITALS: Ht 170.2 cm; Wt 64.0 kg
[~2023-06-09 13:28] MED LIST changes: +HYDR-4134 MT; +IBUP-2029 MT; +PRED10TA MT; +VALS320T16 MT
[2023-06-09 13:34] VITALS: O2SAT 100
[2023-06-09 14:42] LABS: CLARITY URINE CLOUDY (CLEAR); COLOR URINE RED (YELLOW); GLUCOSE URINE NEGATIVE (NEGATIVE); KETONES URINE NEGATIVE (NEGATIVE); LEUKOCYTE ESTERASE URINE 3+ (NEGATIVE); NITRITE URINE NEGATIVE (NEGATIVE); OCCULT BLOOD URINE 3+ (NEGATIVE); PROTEIN URINE 2+ (NEGATIVE); SPECIFIC GRAVITY URINE 1.007 (1.005-1.030); UROBILINOGEN URINE 0.2 E.U./dL (0.2-1.0)
[2023-06-09 14:48] LABS: BASOPHILS % 0.3 % (0.0-2.0); EOSINOPHILS % 0.8 % (0.0-5.0); HEMATOCRIT. 35.9 % (42.0-52.0); HEMOGLOBIN. 12.3 g/dL (14.0-18.0); LYMPHOCYTES % 25.8 % (20.0-50.0); MEAN CORPUSCULAR HEMOGLOBIN 32.9 pg (28.0-32.0); MEAN CORPUSCULAR HGB CONC 34.4 g/dL (31.0-37.0); MEAN CORPUSCULAR VOLUME 95.8 fL (80.0-94.0); MEAN PLATELET VOLUME 8.2 fl (7.4-10.4); MONOCYTES % 9.6 % (2.0-8.0); NEUTROPHILS % 63.5 % (40.0-76.0); PLATELET 142 x1000/uL (130-400); RED BLOOD CELL COUNT 3.75 mill/uL (4.7-6.1); RED CELL DISTRIBUTION WIDTH 14.8 % (11.6-14.6); WHITE BLOOD COUNT 5.2 x1000/uL (4.5-11.0)
[2023-06-09 15:00] LABS: WBC URINE TNTC /hpf (0-2)
[2023-06-09 15:01] LABS: BACTERIA URINE 3+; RBC URINE TNTC /hpf (0-2); SQUAMOUS EPITHELIAL CELL URINE NONE SEEN /lpf (RARE/1+); YEAST URINE NONE SEEN
[2023-06-09 16:15] VITALS: BP 171/99
[2023-06-09] MEDS ORDERED: IBUPROFEN 400MG TABLET PO ONE (16:15)
[2023-06-09 17:45] LABS: CHLORIDE 107 mEq/L (98-107); INDEX HEMOLYSI 1 (1-3); INDEX ICTERIC 1 (1-4); INDEX LIPEMIC 1 (1-3); POTASSIUM 3.5 mEq/L (3.5-5.1); SODIUM 136 mEq/L (136-145)
[2023-06-09 17:51] LABS: ALANINE AMINOTRANSFERASE 19 IU/L (13-61); ALBUMIN 3.8 g/dL (3.4-5.0); ASPARTATE AMINOTRANSFERASE 16 IU/L (15-37); BILIRUBIN TOTAL 0.9 mg/dL (0.1-1.0); CALCIUM 8.4 mg/dL (8.5-10.1); CARBON DIOXIDE 25 mEq/L (21-32); GLUCOSE 85 mg/dL (70-105); PROTEIN TOTAL 7.2 g/dL (6.0-8.3); UREA NITROGEN BLOOD 12 mg/dL (7-21)
[2023-06-09] MEDS ORDERED: CIPR-263 MT (20:38)
[2023-06-09 20:55] VITALS: PULSE 75; RESP 16; TEMP 98.9
== END 2023-06-09 20:58 | disposition home or self-care (01) ==
LOC: ER 13:28
DX: N39.0 Urinary tract infection, site not specified (principal); Z53.21 Procedure and treatment not carried out due to patient leaving prior to being seen by health care provider
CPT/HCPCS: 36415; 71275; 74174; 80053; 81003; 85025; 87077; 87186; 99281; 99284

== ENCOUNTER 2024-01-23 07:18 | Emergency (ER) | payer MEDICARE, MEDICAID ==
[~2024-01-23] VITALS: Ht 170.2 cm; Wt 68.0 kg
[~2024-01-23 07:18] MED LIST changes: +CIPR-263 MT; -HYDR-4134 MT; +HYDR25TA78 MT
[2024-01-23 07:25] VITALS: BP 180/111; PULSE 104; RESP 18; TEMP 98.7; O2SAT 99
[2024-01-23] MEDS: IBUPROFEN 400MG TABLET PO ONE (08:00)
== END 2024-01-23 09:48 | disposition home or self-care (01) ==
LOC: ER 07:18
DX: M79.604 Pain in right leg (principal); I10 Essential (primary) hypertension; J44.9 Chronic obstructive pulmonary disease, unspecified; Z86.73 Personal history of transient ischemic attack (TIA), and cerebral infarction without residual deficits; Z98.890 Other specified postprocedural states
CPT/HCPCS: 73552; 93971; 99284

== ENCOUNTER 2025-08-21 20:24 | Inpatient (IN) | payer MEDICARE, MEDICAID ==
[~2025-08-21] VITALS: Ht 165.1 cm; Wt 79.1 kg
[~2025-08-21 20:24] MED LIST changes: -ATEN50TA PO; -CEPH500C2 MT; -CIPR-263 MT; -DOXA8TAB81 MT; +GABA-1180 PO; -GABA-532 PO; +HYDR12.54 MT; -IBUP-2029 MT; -LATA2.5D14 LEFTEYE; +LATA2.5D7 LEFTEYE; -LISI20TA31 PO; -OXYC-100 MT; -PRED10TA MT; -RANO500T3 PO; -TERA1CAP54 PO; -TIMO5DRO32 LEFTEYE; +TIMO5DRO45 LEFTEYE; -VALS320T16 MT
[2025-08-21 21:55] LABS: BASOPHILS % 0.3 % (0.0-2.0); EOSINOPHILS % 2.7 % (0.0-5.0); HEMATOCRIT. 37.0 % (42.0-52.0); HEMOGLOBIN. 12.0 g/dL (14.0-18.0); LYMPHOCYTES % 14.8 % (20.0-50.0); MEAN PLATELET VOLUME 8.8 fl (7.4-10.4); MONOCYTES % 10.1 % (2.0-8.0); NEUTROPHILS % 72.1 % (40.0-76.0); PLATELET 159 x1000/uL (130-400); RED BLOOD CELL COUNT 4.03 mill/uL (4.7-6.1); RED CELL DISTRIBUTION WIDTH 15.0 % (11.6-14.6)
[2025-08-21 22:00] LABS: UREA NITROGEN BLOOD 28 mg/dL (9-23)
[2025-08-21 22:02] LABS: ASPARTATE AMINOTRANSFERASE 17 IU/L (<34); BILIRUBIN DIRECT 0.4 mg/dL (<=3.0); BILIRUBIN TOTAL 1.1 mg/dL (0.1-1.0); PROTEIN TOTAL 7.1 g/dL (6.0-8.3); TROPONIN I HIGH SENSITIVITY 18 ng/L (3.0-53)
[2025-08-21 22:06] LABS: CREATININE 2.1 mg/dL (0.6-1.3)
[2025-08-21] MEDS: MORPHINE SULFATE 2 MG/ML INJ (NOT FOR IM USE) IV ONE (23:18)
[2025-08-21] MEDS ORDERED: IOHEXOL-350 100 ML BOTTLE ONE (23:29)
[2025-08-21] MEDS ORDERED: IPRATROPIUM/ALBUTEROL 0.5-3(2.5)MG/3ML NEB HHN PRN (23:30)
[2025-08-21] MEDS ORDERED: MAGNESIUM/ALUMINUM HYDROXIDE/SIMETHICONE 30ML UDC PO PRN (23:30)
[2025-08-21] MEDS ORDERED: GUAIFENESIN 200MG/10ML SUGAR FREE UDC PO PRN (23:30)
[2025-08-21] MEDS ORDERED: DEXTROSE 50% WATER 50ML SYRINGE IV PRN (23:30)
[2025-08-21] MEDS ORDERED: DOCUSATE SODIUM 100MG CAPSULE PO PRN (23:30)
[2025-08-21] MEDS ORDERED: ONDANSETRON HCL 4MG/2ML INJ IV PRN (23:30)
[2025-08-22] VITALS (7 sets, daily range): BP systolic 129–168; BP diastolic 84–110; PULSE 74–114; RESP 18–20; TEMP 36.2–36.696; O2SAT 97–99
[2025-08-22] MEDS: ASPIRIN 325MG EC TABLET PO NR (00:15)
[2025-08-22 00:53] LABS: PHOSPHORUS 4.2 mg/dL (2.5-4.9)
[2025-08-22] MEDS: FAMOTIDINE 20MG/2ML VIAL IV SCH (06:09)
[2025-08-22] MEDS: METHYLPREDNISOLONE SOD SUCC 125MG/2ML (ACT-O-VIAL) IV NR (06:09)
[2025-08-22] MEDS: DEXT 5%/LACTATED RINGERS 1,000 ML IV SCH (06:10)
[2025-08-22] MEDS: CLOPIDOGREL 75MG TABLET PO NR (06:12)
[2025-08-22] MEDS: HYDROCODONE/ACETAMINOPHEN 5/325MG TABLET PO NR (06:12)
[2025-08-22] MEDS: MAGNESIUM 2 G PREMIX 50 ML IV NR (06:18)
[2025-08-22] MEDS: ASPIRIN 325MG TABLET PO NR (06:27)
[2025-08-22] MEDS ORDERED: FAMOTIDINE 20MG/2ML VIAL IV SCH (09:00)
[2025-08-22 09:13] LABS: CLARITY URINE CLEAR (CLEAR); COLOR URINE DARK YELLOW (YELLOW); GLUCOSE URINE NEGATIVE (NEGATIVE); KETONES URINE TRACE (NEGATIVE); LEUKOCYTE ESTERASE URINE NEGATIVE (NEGATIVE); NITRITE URINE NEGATIVE (NEGATIVE); OCCULT BLOOD URINE NEGATIVE (NEGATIVE); PH URINE 5.5 (4.5-8.0); PROTEIN URINE NEGATIVE (NEGATIVE); SPECIFIC GRAVITY URINE 1.059 (1.005-1.030); UROBILINOGEN URINE 0.2 E.U./dL (0.2-1.0)
[2025-08-22 09:34] LABS: *AMPHETAMINES SCREEN URINE NEGATIVE (NEGATIVE); *BARBITURATES SCREEN URINE NEGATIVE (NEGATIVE); *BENZODIAZEPINES SCREEN URINE NEGATIVE (NEGATIVE); *COCAINE SCREEN URINE NEGATIVE (NEGATIVE); METHADONE URINE SCREEN NEGATIVE (NEGATIVE); OPIATES URINE SCREEN PRESUMPTIVE POSITIVE (NEGATIVE); PHENCYCLIDINE URINE SCREEN NEGATIVE (NEGATIVE)
[2025-08-22 09:35] LABS: CANNABINOID URINE SCREEN NEGATIVE (NEGATIVE); ECSTASY MDMA SCREEN URINE NEGATIVE (NEGATIVE)
[2025-08-22] MEDS: GUAIFENESIN 600MG ER TABLET PO SCH (10:03)
[2025-08-22] MEDS: CLOPIDOGREL 75MG TABLET PO SCH (10:03)
[2025-08-22] MEDS: ASPIRIN 81MG EC TABLET PO SCH (10:04)
[2025-08-22 12:33] LABS: BASOPHILS % 0.3 % (0.0-2.0); EOSINOPHILS % 1.0 % (0.0-5.0); HEMATOCRIT. 35.8 % (42.0-52.0); HEMOGLOBIN. 12.0 g/dL (14.0-18.0); LYMPHOCYTES % 15.0 % (20.0-50.0); MEAN PLATELET VOLUME 8.9 fl (7.4-10.4); MONOCYTES % 2.4 % (2.0-8.0); NEUTROPHILS % 81.3 % (40.0-76.0); PLATELET 152 x1000/uL (130-400); RED BLOOD CELL COUNT 3.92 mill/uL (4.7-6.1); RED CELL DISTRIBUTION WIDTH 14.9 % (11.6-14.6)
[2025-08-22 12:58] LABS: CREATININE 1.8 mg/dL (0.6-1.3); TRIGLYCERIDE 38.0 mg/dL (0-150); UREA NITROGEN BLOOD 32.0 mg/dL (9-23)
[2025-08-22 12:59] LABS: LDL CHOLESTEROL 53.0 mg/dL (5-100)
[2025-08-22 13:01] LABS: T4 FREE 1.33 ng/dL (0.89-1.76)
[2025-08-22 13:04] LABS: TROPONIN I HIGH SENSITIVITY 18 ng/L (3.0-53)
[2025-08-22] MEDS: CEFTRIAXONE 1GM/50ML 50 ML IV SCH (14:00)
[2025-08-22] MEDS: BRIMONIDINE 0.2% OPHTH DROPS 5ML LEFTEYE SCH (14:50)
[2025-08-22] MEDS: AZITHROMYCIN 500MG/250ML 250 ML IV SCH (15:06)
[2025-08-22] MEDS ORDERED: MORPHINE SULFATE 2 MG/ML INJ (NOT FOR IM USE) IV PRN (15:15)
[2025-08-22] MEDS ORDERED: NALOXONE HCL 0.4MG/ML VIAL IV PRN (15:15)
[2025-08-22] MEDS: DORZOLAMIDE 2% OPHTH 10 ML BOTTLE LEFTEYE SCH (16:12)
[2025-08-22] MEDS: SODIUM CHLORIDE 0.45% 1,000 ML IV SCH (16:16)
[2025-08-22] MEDS ORDERED: IPRATROPIUM/ALBUTEROL 0.5-3(2.5)MG/3ML NEB HHN PRN (17:00)
[2025-08-22] MEDS: METHIMAZOLE 5MG TABLET PO SCH (17:59)
[2025-08-22] MEDS: MORPHINE SULFATE 4 MG/ML INJ (FOR IV/IM USE) IV PRN (18:00)
[2025-08-22] MEDS: IPRATROPIUM/ALBUTEROL 0.5-3(2.5)MG/3ML NEB HHN SCH (21:25)
[2025-08-22] MEDS: LATANOPROST 0.005% OPHTH DROPS 2.5ML LEFTEYE SCH (21:44)
[2025-08-22] MEDS: ATORVASTATIN CALCIUM 40MG TABLET PO SCH (21:45)
[2025-08-22] MEDS: CLONIDINE 0.1MG TABLET PO PRN (21:50)
[2025-08-22] MEDS ORDERED: IOHEXOL-350 100 ML BOTTLE ONE (23:35)
[2025-08-23] VITALS (12 sets, daily range): BP systolic 130–168; BP diastolic 70–97; PULSE 70–91; RESP 16–20; TEMP 36.2–36.7; O2SAT 94–99
[2025-08-23] MEDS ORDERED: *PATIENT'S OWN MEDICATION STORAGE XX SCH (00:15)
[2025-08-23] MEDS: ACETAMINOPHEN 325MG TABLET PO PRN (00:27)
[2025-08-23 08:21] LABS: INFLUENZA TYPE A Presumptive Negative (Pres. Neg.); INFLUENZA TYPE B Presumptive Negative (Pres. Neg.); RESPIRATORY SYNCYTIAL VIRUS Not Detected (Not Detectd)
[2025-08-23 09:31] LABS: CREATININE 1.3 mg/dL (0.6-1.3); UREA NITROGEN BLOOD 33 mg/dL (9-23)
[2025-08-23] MEDS: TIMOLOL MALEATE 0.5% OPHTH DROPS 5ML LEFTEYE SCH (10:51)
[2025-08-23] MEDS: AMLODIPINE 5MG TABLET PO SCH (11:26)
[2025-08-23] MEDS ORDERED: NITROGLYCERIN 0.4MG TABLET SL SL PRN (11:30)
[2025-08-23] MEDS ORDERED: CARVEDILOL 3.125 MG TABLET PO SCH (21:00)
[2025-08-23] MEDS: CARVEDILOL 12.5MG TABLET PO SCH (21:10)
[2025-08-24] VITALS (12 sets, daily range): BP systolic 123–161; BP diastolic 81–90; PULSE 69–84; RESP 12–20; TEMP 36.3–36.7; O2SAT 96–100
[2025-08-24] MEDS: AZITHROMYCIN 500 MG TABLET PO SCH (10:07)
[2025-08-24] MEDS: ISOSORBIDE MONONITRATE 30MG TABLET SR 24HR PO SCH (10:08)
[2025-08-25] VITALS (11 sets, daily range): BP systolic 118–159; BP diastolic 74–101; PULSE 73–91; RESP 18–20; TEMP 36.3–36.7; O2SAT 96–100
[2025-08-26] VITALS (12 sets, daily range): BP systolic 122–145; BP diastolic 61–93; PULSE 72–87; RESP 17–22; TEMP 36.4–36.8; O2SAT 96–100
[2025-08-26] MEDS: ENOXAPARIN 40MG/0.4ML SYR SUBCUT SCH (17:03)
[2025-08-27] VITALS (10 sets, daily range): BP systolic 130–149; BP diastolic 82–97; PULSE 71–85; RESP 18–20; TEMP 36.2–36.5; O2SAT 95–98
[2025-08-27] MEDS ORDERED: AMLO5TAB88 PO (10:46)
[2025-08-27] MEDS ORDERED: ATOR40TA70 MT (10:46)
[2025-08-27] MEDS ORDERED: ISOS30TA91 PO (10:46)
[2025-08-27] MEDS ORDERED: COR12 PO (10:46)
[2025-08-27] MEDS ORDERED: CLOP-31 PO (10:46)
[2025-08-27] MEDS ORDERED: ASPI-1497 MT (10:46)
== END 2025-08-27 15:45 | disposition home health service (06) | DRG 56 ==
LOC: ER 20:24 → 7WST 23:12 → EDBEDREQTM 23:45 → EDBEDREQ 23:45 → ENRESERV 08-22 00:43 → CANRESERV 08-22 00:43 → ENRESERV 08-22 02:21
PROVIDERS: ADMIT Internal Medicine; ATTEND Internal Medicine
DX: I69.351 Hemiplegia and hemiparesis following cerebral infarction affecting right dominant side (principal); N17.0 Acute kidney failure with tubular necrosis; M62.82 Rhabdomyolysis; J44.1 Chronic obstructive pulmonary disease with (acute) exacerbation; R47.01 Aphasia; R13.10 Dysphagia, unspecified; N17.9 Acute kidney failure, unspecified; Z79.02 Long term (current) use of antithrombotics/antiplatelets; D64.9 Anemia, unspecified; I10 Essential (primary) hypertension; G93.0 Cerebral cysts; E78.5 Hyperlipidemia, unspecified; I25.10 Atherosclerotic heart disease of native coronary artery without angina pectoris; J06.9 Acute upper respiratory infection, unspecified; G89.29 Other chronic pain; T40.495A Adverse effect of other synthetic narcotics, initial encounter; N28.1 Cyst of kidney, acquired; Z79.82 Long term (current) use of aspirin; Z87.891 Personal history of nicotine dependence; Z91.199 Patient's noncompliance with other medical treatment and regimen due to unspecified reason; Z95.5 Presence of coronary angioplasty implant and graft; Y92.89 Other specified places as the place of occurrence of the external cause
CPT/HCPCS: 36415; 70496; 70498; 70551; 71275; 80048; 80061; 80076; 80305; 80320; 81003; 82550; 83036; 83605; 83735; 84100; 84145; 84439; 84443; 84484; 85025; 86850; 86900; 87420; 87804; 92610; 93005; 93306; 93970; 94070; 94640; 94664; 96374; 97112; 97116; 97162; 97166; 97530; 97535; 99285; J0456; J0696; J1308; J1650; J2270; J2919; J3475; Q9967; G0480